=== PATIENT | male | born 1950 | race Caucasian/White ===

== ENCOUNTER 2017-04-28 17:32 | Inpatient (IN) ==
[2017-04-28] MEDS ORDERED: Levofloxacin 750 MG/150 ML 750 MG/150 ML BAG IVPB ONE (18:01)
[2017-04-28] MEDS ORDERED: Vancomycin 1,000 MG VIAL IVPB ONE (18:01)
--- NOTE | 2017-04-28 18:08 | Emergency Department Note ---
Disposition Clinical Impression: Hypoxemia, Postobstructive pneumonia, COPD (chronic obstructive pulmonary disease) Disposition: Admitted As Inpatient Condition: Fair General Adult HPI - General Chief complaint: ED Chest Pain Stated complaint: CP/SOB Time Seen by Provider: 04/28/17 17:46 Source: patient Limitations: no limitations - History of Present Illness Pain Scale: 4 - Related Data Home Medications Medication Instructions Recorded Confirmed Metoprolol [Lopressor] 50 mg PO BID 05/27/15 04/28/17 Simvastatin [Zocor] 80 mg PO HS 05/27/15 04/28/17 Naproxen [Naprosyn] 500 mg PO BID 08/12/16 04/28/17 Sertraline [Zoloft] 200 mg PO HS 08/12/16 04/28/17 Tiotropium [Spiriva] 2 puff IH DAILY 08/12/16 04/28/17 metFORMIN [Glucophage] 500 mg PO BIDWM 08/12/16 04/28/17 Aspirin 81 mg PO DAILY 04/28/17 04/28/17 Budesonide/Formoterol 80/4.5 2 puff IH Q12H 04/28/17 04/28/17 [Symbicort 80/4.5] Cholecalciferol (D-3) [Vitamin D] 1,000 unit PO DAILY 04/28/17 04/28/17 Docusate [Colace] 200 mg PO DAILY 04/28/17 04/28/17 Ipratropium/Albuterol Neb [Duoneb] 3 ml IH TID PRN 04/28/17 04/28/17 Lisinopril/Hydrochlorothiazide 1 each PO DAILY 04/28/17 04/28/17 [Zestoretic 10-12.5 mg Tablet] Allergies Allergy/AdvReac Type Severity Reaction Status Date / Time azithromycin [From Zithromax] Allergy Hives Verified 04/28/17 17:48 Past Medical History - Past Medical History Medical history: Reports: arthritis, COPD, coronary artery disease, diabetes, hyperlipidemia, hypertension, myocardial infarction, peripheral artery disease Surgical history: Reports: angioplasty/stent Psychiatric history: Reports: no psych history - Social History Smoking Status: Former smoker Smokeless Tobacco Status: No Alcohol use: Reports: none Drug use: Reports: none Physical Exam - General Limitations: no limitations General appearance: alert Course - Reevaluation(s) Reevaluation #1: I saw the patient with the resident, Dr. Isis Harrington. Patient was sent over from the [place] after he presented there with right-sided chest pain. Workup revealed a right sided pneumonia with a possible postobstructive component to it. There was no PE. Rest of the workup was okay. Patient reports increasing cough and pleuritic right-sided chest pain. He is requiring more oxygen than usual to keep his O2 sats up. Has a number of chronic medical conditions and since there is concern for postobstructive pneumonia as well, he needs to be admitted to the hospital for antibiotics and further oxygen therapy. We will contact the hospitalist arranged admission. Time: 18:10 Vital Signs Temperature 98.5 F 04/28/17 17:33 Pulse Rate 63 04/28/17 17:33 Respiratory Rate 14 04/28/17 17:33 Blood Pressure 138/79 04/28/17 17:33 O2 Sat by Pulse Oximetry 90 04/28/17 17:33 Temperature 98.5 F 04/28/17 17:33 Pulse Rate 62 04/28/17 20:30 Respiratory Rate 16 04/28/17 20:58 Blood Pressure 125/76 04/28/17 20:58 O2 Sat by Pulse Oximetry 90 04/28/17 20:30 Oxygen Delivery Oxygen Delivery Room Air Medical Decision Making - Lab Data Lab Results 04/28/17 Range/Units 18:45 ABG pH 7.41 (7.32-7.45) pH Units ABG pCO2 45 (35-45) mmHg ABG pO2 58 L (85-104) mmHg ABG HCO3 28.5 H (21-27) mEQ/L ABG Total CO2 29.9 H (20-26) mEq/L ABG O2 Saturation 90 L (95-98) % ABG Base Excess 3.4 H (-2.0 to 3.0) mEq/L Blood Gas Modality VM Inspired O2 50 % Attestation Statement - Attestation Attestation: I, Dr. Patel, examined this patient [id number] and my medical decision- making was reviewed with the Resident Physician, Dr Harrington. I agree with the documented findings, disposition and treatment plan as described except to the extent set forth below. Please see my progress note for details.
--- NOTE | 2017-04-28 18:20 | Emergency Department Note ---
Disposition Clinical Impression: Hypoxemia, Postobstructive pneumonia, COPD (chronic obstructive pulmonary disease) Disposition: Admitted As Inpatient Condition: Fair Referrals: Unassigned,Provider [Primary Care Provider] - Forms: ED Satisfaction Letter Time of Disposition: 19:55 Chest Pain HPI - General Chief Complaint: ED Chest Pain Stated Complaint: CP/SOB Time Seen by Provider: 04/28/17 17:46 Source: patient Mode of arrival: EMS Limitations: no limitations Vital Signs Reviewed: Yes Nursing Notes Reviewed: Yes - History of Present Illness HPI Narrative: Mr. Edmonds is a 67-year-old male with past medical history COPD diabetes hypertension coronary artery disease hyperlipidemia and lumbar radiculopathy. He presents to [facility] as transfer from the [place]. He presented there today after awaking this morning with right-sided chest pain. At the [place] he had a full cardiopulmonary workup including a [facility] chest which shows a right middle lobe area of consolidation suggestive of pneumonia. Patient has been seen there multiple times over the past month for this problem. His previous CT scan showed the same consolidation at which point he was referred to [place] for bronchoscopy and further workup for a potential underlying neoplasm causing the recurrent pneumonia. Patient says he has had 2 bronchoscopies to [place] over the past 2 weeks to deprive the area. Patient 's says he does not have the results of the biopsy that he had. His most recent bronchoscopy was a week ago today. Patient awoke this morning having a lot of pain the pain has increased in frequency throughout the day. Patient denies any nausea vomiting or diarrhea. Diaphoresis is his baseline. Patient is on at home oxygen at 3 L. Severity scale (1-10): 4 - Related Data Home Medications Medication Instructions Recorded Confirmed Metoprolol [Lopressor] 50 mg PO BID 05/27/15 08/12/16 Simvastatin [Zocor] 80 mg PO DAILY 05/27/15 08/12/16 Naproxen 500 mg PO BID 08/12/16 08/12/16 Sertraline [Zoloft] 200 mg PO DAILY 08/12/16 08/12/16 Tiotropium [Spiriva] 2.5 mcg IH DAILY 08/12/16 08/12/16 metFORMIN [Glucophage] 500 mg PO BID 08/12/16 08/12/16 Aspirin 81 mg PO DAILY 04/28/17 04/28/17 Budesonide/Formoterol 80/4.5 2 puff IH Q12H 04/28/17 04/28/17 [Symbicort 80/4.5] Cholecalciferol (D-3) [Vitamin D] 1,000 unit PO DAILY 04/28/17 04/28/17 Docusate [Colace] 200 mg PO DAILY 04/28/17 04/28/17 Ipratropium/Albuterol Neb [Duoneb] 3 ml IH TID PRN 04/28/17 04/28/17 Lisinopril/Hydrochlorothiazide 1 each PO DAILY 04/28/17 04/28/17 [Zestoretic 10-12.5 mg Tablet] Allergies Allergy/AdvReac Type Severity Reaction Status Date / Time azithromycin [From Zithromax] Allergy Hives Verified 04/28/17 17:48 Constitutional: Denies: fever, chills Cardiovascular: Reports: chest pain (Right sided pain under patient's breast) Respiratory: Reports: cough, sputum production (None increased from his baseline ). Denies: dyspnea (No dyspnea greater than his baseline), wheezes, hemoptysis , stridor Gastrointestinal: Denies: abdominal pain, nausea, vomiting Genitourinary: Denies: urgency, dysuria Musculoskeletal: Denies: back pain Neurological: Denies: headache, weakness Chest Pain PMH - Past Medical History Medical history: Reports: arthritis, COPD, coronary artery disease, diabetes, hyperlipidemia, hypertension, myocardial infarction, peripheral artery disease Surgical history: Reports: angioplasty/stent Psychiatric history: Reports: no psych history - Social History Smoking Status: Former smoker Alcohol use: Reports: none Drug use: Reports: none Physical Exam - General Limitations: no limitations General appearance: alert - Head Head exam: atraumatic, normocephalic - Respiratory Respiratory exam: Present: other (Lungs with some coarse breath sounds. Patient talking normally. Not think but breathing deeply.). Absent: accessory muscle use - Cardiovascular Cardiovascular exam: Present: regular rate, normal rhythm. Absent: systolic murmur, diastolic murmur, rubs, gallop - Abdominal Exam Abdominal exam: Present: soft, Non-Tender - Neurological Exam Neurological exam: Present: alert, oriented X3 - Skin Skin exam: Present: warm, diaphoresis (Patient is sweaty at baseline.) Course Course Narrative: 67-year-old male [facility]. He is currently being worked up for a potential right sided lung neoplasm which is causing all this postobstructive pneumonia. Patient has been to [place] twice in the last month for bronchoscopies to deep ride the area and obtain biopsies. Upon transfer from the [place], his medical records show a complete cardiopulmonary work up. CTA scan of the chest was negative for PE, however it did show a right middle lobe pneumonia with again an area suspicious for neoplasm. - Reevaluation(s) Reevaluation #1: Spoke with medicine they are requesting us to order an ABG. We will admit to medicine Dr. Simpson. Vital Signs Temperature 98.5 F 04/28/17 17:33 Pulse Rate 63 04/28/17 17:33 Respiratory Rate 14 04/28/17 17:33 Blood Pressure 138/79 04/28/17 17:33 O2 Sat by Pulse Oximetry 90 04/28/17 17:33 Temperature 98.5 F 04/28/17 17:33 Pulse Rate 63 04/28/17 17:33 Respiratory Rate 14 04/28/17 17:33 Blood Pressure 138/79 04/28/17 17:33 O2 Sat by Pulse Oximetry 90 04/28/17 17:33 Oxygen Delivery Oxygen Delivery Nasal Cannula Chest Pain - Medical Records Medical records reviewed: Yes I reviewed the patient's medical records. - Lab Data Lab results reviewed: Yes I reviewed the patient's lab results. - Radiology Data Radiology results reviewed: Yes I reviewed the patient's radiology results. In patients medical records from [place]. - EKG Data EKG attestation: Yes I reviewed and interpreted this EKG. EKG results narrative: Patient's ECG on 04/28/2017 shows electronic atrial pacemaker. There are no ischemic changes compared to his ECG on 08/17/2015 which shows sinus bradycardia with a right bundle branch block and potentially old inferior SD.
[2017-04-28] MEDS ORDERED: Ipratropium/Albuterol Neb 3 ML IH ONE (18:24)
[2017-04-28] MEDS ORDERED: Ipratropium/Albuterol Neb 3 ML ONE (18:26)
[2017-04-28 18:48] LABS: ABG Base Excess 3.4 mEq/L (-2.0 to 3.0); ABG HCO3 28.5 mEQ/L (21-27); ABG Oxygen Saturation 90 % (95-98); ABG PCO2 45 mmHg (35-45); ABG PH 7.41 pH Units (7.32-7.45); ABG PO2 58 mmHg (85-104); ABG TCO2 29.9 mEq/L (20-26)
[2017-04-28 18:51] LABS: Blood Gas FiO2 50 %
[2017-04-28] MEDS ORDERED: *HR* Morphine 2 MG/ML SYRINGE IVP PRN (20:06)
[2017-04-28] MEDS ORDERED: Naloxone 0.4 MG/ML INJ IVP PRN (20:06)
[2017-04-28] MEDS ORDERED: *HR* Promethazine 25 MG/ML VIAL IVP PRN (20:06)
[2017-04-28] MEDS ORDERED: Acetaminophen 325 MG TABLET PO PRN (20:06)
[2017-04-28] MEDS ORDERED: Albuterol 2.5 MG/3 ML NEBULIZER IH PRN (20:12)
[2017-04-28] MEDS ORDERED: Dextrose Gel 15 GM PO PRN ×2 (20:13)
[2017-04-28] MEDS ORDERED: *HR* Dextrose 50 % in Water (Syg) 50 ML SYRINGE IVP PRN (20:13)
[2017-04-28] MEDS ORDERED: D5% in Water 1,000 ML IVC PRN (20:13)
--- NOTE | 2017-04-28 20:21 | Internal Med History&Physical ---
Date of Encounter: 04/28/17 Time of Encounter: 19:40 Assessment and Plan (1) Postobstructive pneumonia Current visit: Yes Status: Acute 1. Patient received antibiotics in ER already but no blood cultures have been drawn. 2. I ordered STAT blood cultures and sputum culture (if able to collect). 3. Continue IV Vancomycin and Levaquin. 4. Consult Pulmonology for possible bronchoscopy. 5. Obtain records from [facility]. 6. Oxygen as needed. 7. Duonebs and respiratory support as needed. (2) Acute on chronic respiratory failure with hypoxemia Current visit: Yes Status: Acute 1. I placed him on 4 L O2 NC presently. 2. Will provide CPAP/BiPap if necessary. 3. Aerosols as scheduled and PRN. (3) Type 2 diabetes mellitus Current visit: Yes Status: Chronic 1. Hold Metformin. 2. Will use SSI and adjust as necessary. Qualifiers: Diabetes mellitus complication status: without complication Diabetes mellitus mental retardation nurse insulin use: without mental retardation nurse use Qualified Code(s): E11.9 - Type 2 diabetes mellitus without complications (4) DVT prophylaxis Current visit: Yes Status: Acute 1. Heparin SQ. Internal Medicine - H&P: HPI Chief complaint: SOB; fever, cough, chest pain Admitted From: Emergency Dept Plans for Post Hospital Care: Home History of present illness: Mr. Edmonds is a 67 year old male who was sent here from [place] urgent care for concerns of right-sided chest pain, cough, fever, and shortness of breath. He has been treated for pneumonia several times since January of this year. He was found to have evidence of 2 lung lesions according to his . He has undergone 2 bronchoscopies at [facility], which according to patient and his , have been nondiagnostic. Today, at the [place] urgent care, he had imaging in the form of a chest x-ray and CT angiogram, which ruled out a PE. However, there was evidence of worsening right middle lobe consolidation and concern for postobstructive pneumonia. He also has small right pleural effusion. Because of his symptomatic complaints and clinical picture, he was sent to [place] ER. He was admitted to the hospitalist service. Essentially no workup was done in the ER other than a blood gas. He had labs drawn at the [place] earlier today which were reviewed by ER staff and by me personally. Upon my assessment of the patient in the ER, patient was on 50% oxygen by Ventimask. I placed him back on 4 L O2 nasal cannula, and his oxygen saturations have been running around 91%. He wears oxygen chronically at home at 3 L. He has been having difficulty breathing off and on since January. However , today, he developed right-sided chest pain with worsening cough, blood-tinged sputum, and low-grade fever. His most recent bronchoscopy was a little over a week ago at [facility]. Pathology results are still pending. He is a former smoker and quit in 2002. He suffers from long-standing COPD. He denies any unexplained weight loss, gross hemoptysis, or any history of DVT or PE. Patient and state they have not been informed of the concern for possible malignancy. They were told he had lesions, but they were under the impression the lesions were benign. I informed them that I would try to obtain records from [facility] and that I would consult our lithographic photographer. Furthermore, he very well may need a repeat bronchoscopy this hospital stay for definitive diagnosis and treatment. Past Med Surg Social Fam HX - Past Medical History Attestation: Yes The following information was validated with the patient. Source: patient, old records reviewed, obtained from family Medical history: arthritis, COPD, coronary artery disease, diabetes, hyperlipidemia, hypertension, myocardial infarction, peripheral artery disease Psychiatric history: no psych history - Past Surgical History Surgical History: angioplasty/stent, pacemaker/AICD - Social History Smoking Status: Former smoker Smokeless Tobacco Status: No Alcohol use: none Drug use: none Current living situation: Home, With Family Activity Level: Independent ambulation - Family History Father Living Status: Hx Family Cardiac Disorders: Yes (self has AICD,) Hx Family Respiratory Disorders: Yes (self,uncle,father) Hx Family Cancer: Yes (father,sisters,) Hx Family GI Disorders: No Hx Family Endocrine Disorder: Yes (self) Hx Family Neuromuscular Disorders: No Hx Family Neurologic Disorders: No Hx Family HEENT Disorders: No Hx Family Autoimmune Disorders: No - Additional Family History Additional family history: no family history of lung cancer Internal Medicine - H&P: Meds Metoprolol [Lopressor] 50 mg PO BID 05/27/15 [History] Simvastatin [Zocor] 80 mg PO HS 05/27/15 [History] Naproxen [Naprosyn] 500 mg PO BID 08/12/16 [History] Sertraline [Zoloft] 200 mg PO HS 08/12/16 [History] Tiotropium [Spiriva] 2 puff IH DAILY 08/12/16 [History] metFORMIN [Glucophage] 500 mg PO BIDWM 08/12/16 [History] Aspirin 81 mg PO DAILY 04/28/17 [History] Budesonide/Formoterol 80/4.5 [Symbicort 80/4.5] 2 puff IH Q12H 04/28/17 [ History] Cholecalciferol (D-3) [Vitamin D] 1,000 unit PO DAILY 04/28/17 [History] Docusate [Colace] 200 mg PO DAILY 04/28/17 [History] Ipratropium/Albuterol Neb [Duoneb] 3 ml IH TID PRN 04/28/17 [History] Lisinopril/Hydrochlorothiazide [Zestoretic 10-12.5 mg Tablet] 1 each PO DAILY [History] 3 Allergy/AdvReac Type Severity Reaction Status Date / Time azithromycin [From Zithromax] Allergy Hives Verified 04/28/17 17:48 - Constitutional Constitutional: chills, fever(s), no night sweats, no weight loss - EENT Eyes: no change in vision Ears: no ear pain, no tinnitus Nose, mouth and throat: no nasal congestion, no sinus pressure, no sore throat - Cardiovascular Cardiovascular ROS IM: chest pain (right sided), dyspnea, dyspnea on exertion, no edema, no orthopnea, no palpitations - Respiratory Respiratory: cough, dyspnea, hemoptysis, wheezing, chest congestion, excessive phlegm production, change in phlegm color, pain with cough - Gastrointestinal Gastrointestinal: no abdominal pain, no diarrhea, no hematemesis, no hematochezia, no melena, no nausea, no vomiting - Genitourinary Genitourinary ROS male: no dysuria, no flank pain, no hematuria - Musculoskeletal Musculoskeletal ROS IM: no arthralgias, no back pain - Integumentary Integumentary IM: no rash, no jaundice - Neurological Neurological ROS: no focal weakness, no frequent falls, no headache(s), no numbness - Psychiatric Psychiatric: no anxiety, no depression - Endocrine Endocrine IM: no polydipsia, no polyuria - Hematologic/Lymphatic Hematologic/Lymphatic: no easy bruising, no lymphadenopathy - Allergic/Immunologic Allergic/Immunologic: wheezing, no GI upset with certain foods - Constitutional Vitals: Temp Pulse Resp BP Pulse Ox 98.5 F 67 20 135/73 89 04/28/17 17:33 04/28/17 19:38 04/28/17 19:38 04/28/17 19:38 04/28/17 19:38 General appearance: Present: cooperative, mild distress, A&O X 3, pleasant, answers questions appropriately - Head Head exam: Present: atraumatic, normal inspection - Eye Eye exam: Present: EOMI, normal appearance, PERRL. Absent: scleral icterus Pupils: Present: normal accommodation - ENT ENT exam: Present: mucous membranes dry, normal exam - Neck Neck exam general surgery: Present: full ROM, supple. Absent: lymphadenopathy, tenderness - Expanded Neck Exam Neck exam: Absent: carotid bruit - Respiratory Respiratory exam: Present: decreased breath sounds (right base), prolonged expiratory phase, rales (right side), respiratory distress (mild), rhonchi, wheezes. Absent: chest wall tenderness - Cardiovascular Cardiovascular exam: Present: distant heart sounds, RRR, +S1, +S2. Absent: diastolic murmur, systolic murmur Additional comments: palpable pacemaker left upper chest - GI/Abdominal GI/Abdominal exam: Present: normal bowel sounds, soft. Absent: hepatomegaly, mass, splenomegaly, tenderness - Extremities Exam Extremities exam: Present: full ROM, normal capillary refill, warm, radial pulses palpable and symmetrical. Absent: calf tenderness, joint swelling, pedal edema - Back Exam Back exam: Present: normal inspection. Absent: CVA tenderness (L), CVA tenderness (R) - Neurological Exam Neurological exam: Present: alert, CN II-XII intact, oriented X3 - Psychiatric Psychiatric exam: Present: normal affect, normal mood - Skin Skin exam: Present: dry, warm. Absent: rash Internal Med - H&P Results - Labs Labs: I reviewed labs from the [place] from today and they include the following: WBC 9.1 Hemoglobin 10.5 Hematocrit 32.2 Plate like count 162 Neutrophils 60% Lymphocytes 18% Monocytes 20% Sodium 143 Potassium 3.5 Chloride 104 Carbon dioxide 28 Glucose 127 BUN 14 Creatinine 1.02 Troponin 0.018 - EKG Data -: EKG Interpreted by Myself - EKG Data Prior EKG available for review: no EKG comments: 04/28/17 20:39 AV paced rhythm - Diagnostic Studies CT scan - chest Additional comments: Report reviewed -- findings noted in [place]
[2017-04-28] MEDS: Ipratropium/Albuterol Neb 3 ML IH SCH ×2 (20:24→23:35)
[2017-04-28] MEDS ORDERED: Vancomycin 1,750 MG in D5% in Water 250 ML IVPB SCH (21:00)
[2017-04-28] MEDS: Vancomycin 1,750 MG in D5% in Water 500 ML IVPB SCH (22:05)
[2017-04-28] MEDS: Budesonide/Formoterol 80/4.5 MDI IH SCH (22:49)
[2017-04-29] MEDS: *HR* Heparin 5,000 UNIT/ML VIAL SQ SCH ×3 (00:08→17:32)
[2017-04-29] MEDS: Ipratropium/Albuterol Neb 3 ML IH SCH ×6 (04:02→23:09)
[2017-04-29 05:06] LABS: Basophils # 0.1 K/mcL (0.0-0.2); Basophils % 0.6 %; Eosinophils # 0.1 K/mcL (0.0-0.6); Eosinophils % 0.6 %; Hematocrit 30.7 % (37.5-50.1); Immature Granulocytes % 1.3 % (0-4); Lymphocytes # 1.9 K/mcL (0.6-4.6); Lymphocytes % 15.9 %; Mean Corpuscular HGB Conc 32.6 g/dL (31.6-35.5); Mean Corpuscular Hemoglobin 28.5 pg (28.0-33.3); Mean Corpuscular Volume 87.5 fL (83.0-100.0); Mean Platelet Volume 10.7 fL (9.4-12.4); Monocytes # 2.5 K/mcL (0.0-1.3); Monocytes % 21.3 %; Neutrophils # 7.1 K/mcL (1.6-8.9); Platelet Count 148 K/mcL (140-400); Red Blood Count 3.51 M/mcL (4.19-5.50); Red Cell Distribution Width 17.9 % (11.5-14.5); Segmented Neutrophils % 60.3 %
[2017-04-29 05:14] LABS: INR 1.2
[2017-04-29 05:16] LABS: Activated Partial Thrombo Time 27.8 Seconds (26.0-36.0)
[2017-04-29 05:19] LABS: Alanine Aminotransferase 12 Units/L (0-55); Albumin 3.3 g/dL (3.5-5.0); Alkaline Phosphatase 48 Units/L (38-126); Aspartate Amino Transferase 14 Units/L (5-34); BUN/Creatinine Ratio 14 (6-26); Bilirubin,Total 0.5 mg/dL (0.2-1.2); Blood Urea Nitrogen 13 mg/dL (8-26); Calcium 8.7 mg/dL (8.6-10.8); Carbon Dioxide 28 mEq/L (19-29); Chloride 103 mEq/L (98-109); Globulin 3.2 g/dL (2.4-3.5); Glucose 99 mg/dL (70-99); Magnesium 1.7 mg/dL (1.6-2.6); Osmolality,Calculated 288 (280-300); Sodium 139 mEq/L (136-145); Total Protein 6.5 g/dL (6.0-8.3); eGFR For African Americans > 60 (> 60); eGFR For Non-African Americans > 60 (> 60)
[2017-04-29 05:31] LABS: Large Platelets Present (Not Present); Platelet Estimate Normal (Normal); Reactive Lymphocytes Present (Not Present)
[2017-04-29 05:32] LABS: Anisocytosis 1+ (Not Present); Macrocytosis Present (Not Present); Microcytosis Present (Not Present); Polychromasia 1+ (Not Present)
[2017-04-29] MEDS: Budesonide/Formoterol 80/4.5 MDI IH SCH ×2 (08:23→19:48)
[2017-04-29] MEDS ORDERED: Tiotropium 18 MCG inhalation IH SCH (09:00)
[2017-04-29] MEDS: Levofloxacin 750 MG/150 ML 750 MG/150 ML BAG IVPB SCH (09:52)
[2017-04-29] MEDS: Aspirin 81 MG TAB.CHEW PO SCH (09:53)
[2017-04-29] MEDS: Cholecalciferol (D-3) 1,000 UNIT TABLET PO SCH (09:54)
[2017-04-29] MEDS: Insulin LISPRO 300 UNITS/3 ML VIAL SQ SCH ×3 (09:58→17:31)
[2017-04-29] MEDS: Vancomycin 1,750 MG in D5% in Water 500 ML IVPB SCH ×2 (09:59→20:32)
--- NOTE | 2017-04-29 11:14 | Internal Med Progress Note ---
<Jermaine Silva - Last Filed: 04/29/17 14:26> Date of Encounter: 04/29/17 Time of Encounter: 11:11 - Assessment and plan (1) Postobstructive pneumonia Current Visit: Yes Status: Acute Assessment and plan: 6 mo hx of recurrent pneumonia. [facility] biopsy twice in last 2 weeks. hx COPD. In Ed patient was given vanc + levaquin prior to cultures. - SpO2 93% 4L O2 - Ct levaquin +vanco - waiting biopsy report from [facility] - blood and sputum Cx pending - O2 prn - duonebs and resp support prn (2) COPD (chronic obstructive pulmonary disease) Current Visit: Yes Status: Acute Assessment and plan: - SpO2 93% 4L O2 - Ct levaquin - O2 prn - duonebs and resp support prn - consider solmuderol if wheezing worsens - CPAP/BIPAP if necessary Qualifiers: Qualified Code(s): J44.9 - Chronic obstructive pulmonary disease, unspecified (3) Type 2 diabetes mellitus Current Visit: Yes Status: Chronic Assessment and plan: - hold metformin - ct. SSI Qualifiers: Diabetes mellitus complication status: without complication Diabetes mellitus mcfp insulin use: without termination clerk use Qualified Code(s): E11.9 - Type 2 diabetes mellitus without complications (4) DVT prophylaxis Current Visit: Yes Status: Acute Assessment and plan: Ct. heparin - Subjective Interval history: Mr. Edmonds is a 67 year old male is on Day 1 of admission for recurrent pneumonia and chest pain for the last 6 months w/ hx COPD home 3L, DM, HTN, CAD , HLD, lumbar radiculopahty. Patient today reports not feeling great and continues to have breathing complaints. denies f/c/n/v/sob at rest - Constitutional Vitals: Temp Pulse Resp BP Pulse Ox 97.9 F 70 17 131/76 90 04/29/17 10:58 04/29/17 10:58 04/29/17 10:58 04/29/17 10:58 04/29/17 10:58 General appearance: Present: cooperative, mild distress, A&O X 3, pleasant, answers questions appropriately - Head Head exam: Present: atraumatic, normocephalic - Respiratory Respiratory exam: Present: wheezes. Absent: accessory muscle use, rales, rhonchi - Cardiovascular Cardiovascular exam: Present: RRR, +S1, +S2. Absent: diastolic murmur, gallop, rubs, systolic murmur - GI/Abdominal GI/Abdominal exam: Present: normal bowel sounds, soft, no peritoneal signs. Absent: distended, tenderness Internal Medicine: Result - Labs CBC & Chem 7: 04/29/17 04:39 04/29/17 04:39 Labs: Short CBC 04/29/17 Range/Units 04:39 WBC 11.8 H (4.3-11.1) K/mcL Hgb 10.0 L (12.9-16.9) g/dL Hct 30.7 L (37.5-50.1) % Plt Count 148 (140-400) K/mcL Neutrophils # 7.1 (1.6-8.9) K/mcL BMP 04/29/17 04:39 Sodium 139 Potassium 4.0 Chloride 103 Carbon Dioxide 28 BUN 13 Creatinine 0.91 Glucose 99 Calcium 8.7 Cardiac Enzymes 04/28/17 04/29/17 Range/Units 20:56 04:39 Troponin I 0.00 0.00 (0-0.03) ng/mL Liver Function 04/29/17 Range/Units 04:39 Total Bilirubin 0.5 (0.2-1.2) mg/dL AST 14 (5-34) Units/L ALT 12 (0-55) Units/L Alkaline Phosphatase 48 (38-126) Units/L Albumin 3.3 L (3.5-5.0) g/dL - ABG Interpretation ABG results: ABG ABG pH 7.41 pH Units (7.32-7.45) 04/28/17 18:45 ABG pCO2 45 mmHg (35-45) 04/28/17 18:45 ABG pO2 58 mmHg (85-104) L 04/28/17 18:45 ABG O2 Saturation 90 % (95-98) L 04/28/17 18:45 PT/INR, D-dimer PT 13.0 Seconds (9.4-12.1) H 04/29/17 04:39 Consult Discharge Plan - Plan [facility]errals: [facility]Primary Care Provider[facility] - <Joradn Stein P - Last Filed: 04/29/17 20:19> Date of Encounter: 04/29/17 - Constitutional Vitals: Temp Pulse Resp BP Pulse Ox 98 F 63 16 140/78 90 04/29/17 19:38 04/29/17 19:38 04/29/17 19:49 04/29/17 19:38 04/29/17 19:49 Internal Medicine: Result - Labs CBC & Chem 7: 04/29/17 04:39 04/29/17 04:39 - ABG Interpretation ABG results: ABG ABG pH 7.41 pH Units (7.32-7.45) 04/28/17 18:45 ABG pCO2 45 mmHg (35-45) 04/28/17 18:45 ABG pO2 58 mmHg (85-104) L 04/28/17 18:45 ABG O2 Saturation 90 % (95-98) L 04/28/17 18:45 PT/INR, D-dimer PT 13.0 Seconds (9.4-12.1) H 04/29/17 04:39 - Attending Attestation I examined this patient and my medical decision-making was reviewed with the Resident Physician. I agree with the documented findings, disposition and treatment plan as described except to the extent set forth below.
--- NOTE | 2017-04-29 17:10 | Electrocardiograph Report ---
[place] [id number] Test Date: 2017-04-28 Pat Name: Sarabjit Edmonds Department: 0 Room: 2A Gender: M [employer] Operator: Nilsa : 1950 Requested By: Jordan Stein Order Number: [id number] Reading MD: Bettie Gibbs Measurements Intervals [place] Rate: 60 P: 99 RI: 187 QRS: -71 QRSD: 153 T: 35 QT: 444 QTc: 445 Interpretive Statements ELECTRONIC ATRIAL PACEMAKER ELECTRONIC VENTRICULAR PACEMAKER ABNORMAL RHYTHM ECG Electronically Signed On 04-29-2017 17:08:09 EDT by Bettie Gibbs
[2017-04-30] MEDS: *HR* Heparin 5,000 UNIT/ML VIAL SQ SCH ×4 (00:27→23:32)
[2017-04-30] MEDS: Ipratropium/Albuterol Neb 3 ML IH SCH ×6 (03:43→23:48)
[2017-04-30 04:13] LABS: Hematocrit 31.9 % (37.5-50.1); Hemoglobin 10.1 g/dL (12.9-16.9); Mean Corpuscular HGB Conc 31.7 g/dL (31.6-35.5); Mean Corpuscular Hemoglobin 27.5 pg (28.0-33.3); Mean Corpuscular Volume 86.9 fL (83.0-100.0); Mean Platelet Volume 11.3 fL (9.4-12.4); Platelet Count 158 K/mcL (140-400); Red Blood Count 3.67 M/mcL (4.19-5.50); Red Cell Distribution Width 17.9 % (11.5-14.5)
[2017-04-30 04:28] LABS: BUN/Creatinine Ratio 13 (6-26); Blood Urea Nitrogen 13 mg/dL (8-26); Calcium 9.2 mg/dL (8.6-10.8); Carbon Dioxide 28 mEq/L (19-29); Chloride 105 mEq/L (98-109); Glucose 94 mg/dL (70-99); Osmolality,Calculated 292 (280-300); Potassium 3.7 mEq/L (3.5-4.5); Sodium 141 mEq/L (136-145); eGFR For African Americans > 60 (> 60); eGFR For Non-African Americans > 60 (> 60)
[2017-04-30] MEDS: Budesonide/Formoterol 80/4.5 MDI IH SCH ×2 (07:37→20:05)
[2017-04-30] MEDS: Insulin LISPRO 300 UNITS/3 ML VIAL SQ SCH ×3 (08:07→17:07)
[2017-04-30] MEDS: Aspirin 81 MG TAB.CHEW PO SCH (09:03)
[2017-04-30] MEDS: Levofloxacin 750 MG/150 ML 750 MG/150 ML BAG IVPB SCH (09:03)
[2017-04-30] MEDS: Cholecalciferol (D-3) 1,000 UNIT TABLET PO SCH (09:03)
--- NOTE | 2017-04-30 15:19 | Internal Med Progress Note ---
Date of Encounter: 04/30/17 Time of Encounter: 15:17 - Assessment and plan (1) Postobstructive pneumonia Current Visit: Yes Status: Acute Assessment and plan: 6 mo hx of recurrent pneumonia. [facility] biopsy twice in last 2 weeks. hx COPD. In Ed patient was given vanc + levaquin prior to cultures. We received some records from [facility] but we did not get any imaging. Biopsy/FNA see record: Inconclusive/nondiagnostic Plan: Chest x-ray CT chest with contrast (2) COPD (chronic obstructive pulmonary disease) Current Visit: Yes Status: Acute Assessment and plan: - SpO2 93% 4L O2 - Ct levaquin - O2 prn - duonebs and resp support prn - consider solmuderol if wheezing worsens - CPAP/BIPAP if necessary Qualifiers: Qualified Code(s): J44.9 - Chronic obstructive pulmonary disease, unspecified (3) Type 2 diabetes mellitus Current Visit: Yes Status: Chronic Assessment and plan: - hold metformin - ct. 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 heparin I have spoken to assurance analyst Dr. Rosado. We will get imaging. Possible bronchoscopy/interventional procedure on Tuesday. We will keep patient nothing by mouth from Tuesday midnight - Subjective Interval history: Seen and examined. Chart reviewed. Patient is comfortably lying in a bed. Patient denies cough, chest pain, shortness of breath, abdominal pain, nausea, diarrhea and dizziness. - Constitutional Vitals: Temp Pulse Resp BP Pulse Ox 97.3 F L 62 20 138/73 89 04/30/17 10:33 04/30/17 10:33 04/30/17 11:13 04/30/17 10:33 04/30/17 11:13 General appearance: Present: cooperative, mild distress, A&O X 3, pleasant, answers questions appropriately - Head Head exam: Present: atraumatic, normocephalic - Eye Eye exam: Present: PERRL, conjuntiva pink, sclera anicteric Pupils: Present: PERRL - Neck Neck exam general surgery: Present: supple, trachea midline. Absent: lymphadenopathy - Respiratory Respiratory exam: Present: CTAB. Absent: accessory muscle use, rales, rhonchi, wheezes - Cardiovascular Cardiovascular exam: Present: RRR, +S1, +S2. Absent: diastolic murmur, gallop, rubs, systolic murmur - GI/Abdominal GI/Abdominal exam: Present: normal bowel sounds, soft, no peritoneal signs. Absent: distended, tenderness - Extremities Exam Extremities exam: Present: warm, radial pulses palpable and symmetrical. Absent : calf tenderness, cyanotic, pedal edema - Neurological Exam Neurological exam: Present: CN II-XII intact, oriented X3, no focal deficits. Absent: pronater drift, facial droop, speech deficit - Skin Skin exam: Present: dry, intact Internal Medicine: Result - Labs CBC & Chem 7: 04/30/17 02:48 04/30/17 02:48 Labs: Short CBC 04/30/17 Range/Units 02:48 WBC 8.2 (4.3-11.1) K/mcL Hgb 10.1 L (12.9-16.9) g/dL Hct 31.9 L (37.5-50.1) % Plt Count 158 (140-400) K/mcL BMP 04/30/17 02:48 Sodium 141 Potassium 3.7 Chloride 105 Carbon Dioxide 28 BUN 13 Creatinine 1.03 Glucose 94 Calcium 9.2 - ABG Interpretation ABG results: ABG ABG pH 7.41 pH Units (7.32-7.45) 04/28/17 18:45 ABG pCO2 45 mmHg (35-45) 04/28/17 18:45 ABG pO2 58 mmHg (85-104) L 04/28/17 18:45 ABG O2 Saturation 90 % (95-98) L 04/28/17 18:45 PT/INR, D-dimer PT 13.0 Seconds (9.4-12.1) H 04/29/17 04:39 Consult Discharge Plan - Plan [facility]Primary Care Provider] -
[2017-04-30] MEDS: Vancomycin 1,000 MG in D5% in Water 250 ML IVPB SCH (18:42)
[2017-05-01] MEDS: Ipratropium/Albuterol Neb 3 ML IH SCH ×6 (04:03→23:23)
[2017-05-01 05:02] LABS: Hematocrit 32.7 % (37.5-50.1); Hemoglobin 10.7 g/dL (12.9-16.9); Mean Corpuscular HGB Conc 32.7 g/dL (31.6-35.5); Mean Corpuscular Hemoglobin 28.4 pg (28.0-33.3); Mean Corpuscular Volume 86.7 fL (83.0-100.0); Mean Platelet Volume 10.3 fL (9.4-12.4); Platelet Count 151 K/mcL (140-400); Red Blood Count 3.77 M/mcL (4.19-5.50); Red Cell Distribution Width 17.8 % (11.5-14.5)
[2017-05-01 05:22] LABS: BUN/Creatinine Ratio 14 (6-26); Blood Urea Nitrogen 15 mg/dL (8-26); Calcium 8.9 mg/dL (8.6-10.8); Carbon Dioxide 25 mEq/L (19-29); Chloride 105 mEq/L (98-109); Glucose 119 mg/dL (70-99); Osmolality,Calculated 292 (280-300); Potassium 3.8 mEq/L (3.5-4.5); Sodium 140 mEq/L (136-145); eGFR For African Americans > 60 (> 60); eGFR For Non-African Americans > 60 (> 60)
[2017-05-01] MEDS: Vancomycin 1,000 MG in D5% in Water 250 ML IVPB SCH ×2 (06:01→17:54)
[2017-05-01] MEDS: Budesonide/Formoterol 80/4.5 MDI IH SCH ×2 (07:59→19:42)
[2017-05-01] MEDS: *HR* Heparin 5,000 UNIT/ML VIAL SQ SCH ×3 (08:44→22:40)
[2017-05-01] MEDS: Aspirin 81 MG TAB.CHEW PO SCH (08:44)
[2017-05-01] MEDS: Cholecalciferol (D-3) 1,000 UNIT TABLET PO SCH (08:44)
[2017-05-01] MEDS: Levofloxacin 750 MG/150 ML 750 MG/150 ML BAG IVPB SCH (08:44)
[2017-05-01] MEDS: Insulin LISPRO 300 UNITS/3 ML VIAL SQ SCH ×3 (08:44→16:48)
--- NOTE | 2017-05-01 10:28 | Pulmonology Consult Note ---
Date of Encounter: 05/01/17 Time of Encounter: 09:45 Assessment and Plan (1) Right middle lobe pneumonia Current Visit: Yes Status: Acute The patient has recurrent right middle lobe pneumonia. Right middle lobe is prone for recurrent pneumonia and atelectasis because of the long bronchus and the lymph nodes surrounding the bronchus, lack of collateral ventilation. The most common concern for a former smoker with COPD with recurrent pneumonia is malignancy but with CT imaging and the recent bronchoscopy results malignancies of low probability. The other causes for recurrent right middle lobe pneumonia can be due to infectious/inflammatory etiology. In this case with a background of COPD concern for fungal infection, nontuberculous mycobacteria infection ,i could not see any microbiology [facility]. We will discuss the case with Dr. Seaman regarding bronchoscopy with BAL for microbiology looking for fungus and non-tuberculous mycobacteria . 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 To continue IV Vancomycin and IV levofloxacin for now . Ordered induced sputum cultures for bacteria, fungus and Non tuberculous bacteria.He doesnt have any clinical symptoms suggestive of sarcoidosis there is no imaging evidence suggestive of that.Will keep NPO for Bronchoscopy tomorrow. Qualifiers: Pneumonia type: due to unspecified organism Qualified Code(s): J18.1 - Lobar pneumonia, unspecified organism (2) COPD (chronic obstructive pulmonary disease) Current Visit: Yes Status: Acute Patient is at his baseline oxygen requirements , his cough and sputum production is at baseline but no evidence of hemoptysis . Will continue the home regimen of bronchodilators . Patient doesnt look like he is in acute exacerbation of COPD. Qualifiers: COPD type: COPD with acute lower respiratory infection Qualified Code(s): J44.0 - Chronic obstructive pulmonary disease with acute lower respiratory infection (3) CAD (coronary artery disease) Current Visit: No Status: Chronic Management according to primary team. Qualifiers: Coronary Disease-Associated Artery/Lesion type: [place] artery [place] vs. transplanted heart: [place] heart Associated angina: without angina Qualified Code(s): I25.10 - Atherosclerotic heart disease of [place] coronary artery without angina pectoris (4) Obstructive sleep apnea (adult) (pediatric) Current Visit: Yes Status: Acute Patient is currently using CPAP at 13 cm of water. Patient is tolerating his mask and pressure well is feeling refreshed every morning. We will continue the home setting for now. (5) DVT prophylaxis Current Visit: No Status: Acute According to primary team. History of Present Illness Consult date: 05/01/17 Reason for consult: pneumonia (Recurrent Right Middle lobe pneumonia ) Chief complaint: Right Sided chest pain , i had some cough History of present illness: 67-year-old male pulmonary was consulted for recurrent right middle lobe pneumonia. Patient has a significant past medical history with oxygen- dependent COPD patient is usually on 3 L on rest and 4 L on exertion, coronary artery disease, hypertension hyperlipidemia ,BERNIE on CPAP, presented to the [place] urgent care for symptoms of right-sided chest pain, cough with some sputum production was febrile initially and patient has increased oxygen requirement from the baseline. The urgent care regard chest x-ray showed which showed worsening right middle lobe consolidation. Concern for pulmonary embolism CT was done which did not show any evidence of pulmonary embolism but showed worsening right middle lobe consolidation. Patient was shifted to [place] [facility] then he was admitted to the hospitalist service. During the hospital stay patient was started on broad-spectrum antibiotics vancomycin and levofloxacin. Patient is getting better , cough is at baseline no evidence of hemoptysis, denies any other constitutional symptoms. From 01/2017 he had 4 episodes of pneumonia month of April ,he had a bronchoscopy at [facility] for consult for postobstructive pneumonia concerning for malignancy. [facility] [place] end[facility]ial biopsy was negative for any malignancy cytology showed atypical cells most likely squamous metaplasia. There are no microbiology workup was done on the BAL from [facility] and confirmed with the patient that they did not do any workup for bacteria fungus and the family said they are not aware of any pending results in [facility]. Patient denies any current chest pain patient states he feels a lot better back to his baseline he is ready to go home. Past Med Surg Social Fam HX - Past Medical History Medical history: arthritis, COPD, coronary artery disease, diabetes, hyperlipidemia, hypertension, myocardial infarction, peripheral artery disease Psychiatric history: no psych history - Past Surgical History Surgical History: angioplasty/stent - Social History Smoking Status: Former smoker Smokeless Tobacco Status: No Alcohol use: none Drug use: none - Family History Father Family Member Ethnicity: Non- Living Status: Age at : 85 Hx Family Cardiac Disorders: Yes (self has AICD,) Hx Family Respiratory Disorders: Yes (self,uncle,father) Hx Family Cancer: Yes (father,sisters,) Hx Family GI Disorders: No Hx Family Endocrine Disorder: Yes (self) Hx Family Neuromuscular Disorders: No Hx Family Neurologic Disorders: No Hx Family HEENT Disorders: No Hx Family Autoimmune Disorders: No Medications and Allergies Metoprolol [Lopressor] 50 mg PO BID 05/27/15 [History] Simvastatin [Zocor] 80 mg PO HS 05/27/15 [History] Naproxen [Naprosyn] 500 mg PO BID 08/12/16 [History] Sertraline [Zoloft] 200 mg PO HS 08/12/16 [History] Tiotropium [Spiriva] 2 puff IH DAILY 08/12/16 [History] metFORMIN [Glucophage] 500 mg PO BIDWM 08/12/16 [History] Aspirin 81 mg PO DAILY 04/28/17 [History] Budesonide/Formoterol 80/4.5 [Symbicort 80/4.5] 2 puff IH Q12H 04/28/17 [ History] Cholecalciferol (D-3) [Vitamin D] 1,000 unit PO DAILY 04/28/17 [History] Docusate [Colace] 200 mg PO DAILY 04/28/17 [History] Ipratropium/Albuterol Neb [Duoneb] 3 ml IH TID PRN 04/28/17 [History] Lisinopril/Hydrochlorothiazide [Zestoretic 10-12.5 mg Tablet] 1 each PO DAILY [History] 3 Allergy/AdvReac Type Severity Reaction Status Date / Time azithromycin [From Zithromax] Allergy Hives Verified 04/28/17 17:48 All Systems: A 10-system review of systems was performed and is negative for pertinent findings except as documented above in the HPI. Physical Examination Vital Signs: Vital Signs, Last 4 Hours Temp Pulse Resp BP Pulse Ox 05/01/17 07:59 16 93 05/01/17 06:59 97.4 F L 64 17 149/83 90 General appearance: no acute distress Eyes: nonicteric Neck: supple, no lymphadenopathy Effort: normal Inspection: normal Auscultation: bilateral: diminished breath sounds Cardiovascular: regular rate and rhythm Gastrointestinal: normoactive bowel sounds Extremities: no edema Musculoskeletal: no deformities Gait: normal gait normal mental status, non-focal exam mood appropriate Results - Laboratory Findings CBC and BMP: 05/01/17 04:42 05/01/17 04:42 ABG ABG pH 7.41 pH Units (7.32-7.45) 04/28/17 18:45 ABG pCO2 45 mmHg (35-45) 04/28/17 18:45 ABG pO2 58 mmHg (85-104) L 04/28/17 18:45 ABG O2 Saturation 90 % (95-98) L 04/28/17 18:45 PT/INR, D-dimer PT 13.0 Seconds (9.4-12.1) H 04/29/17 04:39 Abnormal lab findings: Abnormal lab results RBC 3.77 M/mcL (4.19-5.50) L 05/01/17 04:42 Hgb 10.7 g/dL (12.9-16.9) L 05/01/17 04:42 Hct 32.7 % (37.5-50.1) L 05/01/17 04:42 RDW 17.8 % (11.5-14.5) H 05/01/17 04:42 Monocytes # 2.5 K/mcL (0.0-1.3) H 04/29/17 04:39 Reactive Lymphocytes Present (Not Present) A 04/29/17 04:39 Large Platelets Present (Not Present) A 04/29/17 04:39 Polychromasia 1+ (Not Present) A 04/29/17 04:39 Anisocytosis 1+ (Not Present) A 04/29/17 04:39 Microcytosis Present (Not Present) A 04/29/17 04:39 Macrocytosis Present (Not Present) A 04/29/17 04:39 PT 13.0 Seconds (9.4-12.1) H 04/29/17 04:39 ABG pO2 58 mmHg (85-104) L 04/28/17 18:45 ABG HCO3 28.5 mEQ/L (21-27) H 04/28/17 18:45 ABG Total CO2 29.9 mEq/L (20-26) H 04/28/17 18:45 ABG O2 Saturation 90 % (95-98) L 04/28/17 18:45 ABG Base Excess 3.4 mEq/L (-2.0 to 3.0) H 04/28/17 18:45 Glucose 119 mg/dL (70-99) H 05/01/17 04:42 POC Glucose 112 (58-89) H 04/30/17 20:45 Albumin 3.3 g/dL (3.5-5.0) L 04/29/17 04:39 Albumin/Globulin Ratio 1.0 (1.1-2.2) L 04/29/17 04:39 Vancomycin Trough 25.0 mcg/mL (10-20) H* 04/30/17 07:45 - Diagnostic Findings CT scan - chest: image reviewed (Personally reviewed the CT images the mediastinal windows did not show any evidence of significant lymphadenopathy. Right middle lobe consolidation was found the right middle lobe bronchus was narrowed is no evidence of lymph node around it, there is no obvious and endobronchial lesion in the CT imaging. The lateral segment lateral segment of MIDDLE lobe is more consolidated process odilia the medial segement for the right middle lobe.) - Clinical Findings Intake & Output: Intake & Output 04/30/17 05/01/17 05/01/17 23:59 07:59 15:59 Intake Total 250 / 250 240 / 240 Balance 250 / 250 240 / 240 Consult Discharge Plan - Plan [facility]errals: [facility] [Primary Care Provider] -
--- NOTE | 2017-05-01 15:53 | Internal Med Progress Note ---
Date of Encounter: 05/01/17 Time of Encounter: 15:50 - Assessment and plan (1) Postobstructive pneumonia Current Visit: Yes Status: Acute Assessment and plan: 6 mo hx of recurrent pneumonia. [facility] biopsy twice in last 2 weeks. hx COPD. In Ed patient was given vanc + levaquin prior to cultures. We received some records from [facility] but we did not get any imaging. Biopsy/FNA see record: Inconclusive/nondiagnostic Plan: Chest x-ray CT chest with contrast 05/01/2017. A right middle lobe pneumonia. Presently on vancomycin/levofloxacin. CT chest/x-ray: Confirms the finding of a right middle lobe pneumonia Patient has previous multiple bronchoscopies. Informed pulmonary service. Appreciated their recommendations. Nothing by mouth forearm midnight for a bronchoscopy tomorrow. (2) COPD (chronic obstructive pulmonary disease) Current Visit: Yes Status: Acute Qualifiers: COPD type: COPD with acute lower respiratory infection Qualified Code(s): J44.0 - Chronic obstructive pulmonary disease with acute lower respiratory infection (3) Type 2 diabetes mellitus Current Visit: Yes Status: Chronic Assessment and plan: - hold metformin - ct. SSI Qualifiers: Diabetes mellitus complication status: without complication Diabetes mellitus group home insulin use: without group home use Qualified Code(s): E11.9 - Type 2 diabetes mellitus without complications (4) DVT prophylaxis Current Visit: Yes Status: Acute Assessment and plan: Ct. heparin I have spoken to mineral industry teacher Dr. Rosado. We will get imaging. Possible bronchoscopy/interventional procedure on Tuesday. We will keep patient nothing by mouth from Tuesday midnight - Subjective Interval history: Seen and examined. Chart reviewed. Patient is comfortably lying in a bed. Patient denies cough, chest pain, shortness of breath, abdominal pain, nausea, diarrhea and dizziness. 05/01/2017. Patient seen and examined. Patient is comfortably sitting up along the bedside. patient's at bedside. Patient denies chest pain, shortness of breath, abdominal pain, nausea, vomiting , diarrhea and dizziness - Constitutional Vitals: Temp Pulse Resp BP Pulse Ox 97.7 F 72 16 127/60 91 05/01/17 11:33 05/01/17 11:33 05/01/17 15:28 05/01/17 11:33 05/01/17 15:28 General appearance: Present: cooperative, mild distress, A&O X 3, pleasant, answers questions appropriately - Head Head exam: Present: atraumatic, normocephalic - Eye Eye exam: Present: PERRL, conjuntiva pink, sclera anicteric Pupils: Present: PERRL - Neck Neck exam general surgery: Present: supple, trachea midline. Absent: lymphadenopathy - Respiratory Respiratory exam: Present: CTAB. Absent: accessory muscle use, rales, rhonchi, wheezes - Cardiovascular Cardiovascular exam: Present: RRR, +S1, +S2. Absent: diastolic murmur, gallop, rubs, systolic murmur - GI/Abdominal GI/Abdominal exam: Present: normal bowel sounds, soft, no peritoneal signs. Absent: distended, tenderness - Extremities Exam Extremities exam: Present: warm, radial pulses palpable and symmetrical. Absent : calf tenderness, cyanotic, pedal edema - Neurological Exam Neurological exam: Present: CN II-XII intact, oriented X3, no focal deficits. Absent: pronater drift, facial droop, speech deficit - Skin Skin exam: Present: dry, intact Internal Medicine: Result - Labs CBC & Chem 7: 05/01/17 04:42 05/01/17 04:42 Labs: Short CBC 05/01/17 Range/Units 04:42 WBC 7.7 (4.3-11.1) K/mcL Hgb 10.7 L (12.9-16.9) g/dL Hct 32.7 L (37.5-50.1) % Plt Count 151 (140-400) K/mcL BMP 05/01/17 04:42 Sodium 140 Potassium 3.8 Chloride 105 Carbon Dioxide 25 BUN 15 Creatinine 1.10 Glucose 119 H Calcium 8.9 - ABG Interpretation ABG results: ABG ABG pH 7.41 pH Units (7.32-7.45) 04/28/17 18:45 ABG pCO2 45 mmHg (35-45) 04/28/17 18:45 ABG pO2 58 mmHg (85-104) L 04/28/17 18:45 ABG O2 Saturation 90 % (95-98) L 04/28/17 18:45 PT/INR, D-dimer PT 13.0 Seconds (9.4-12.1) H 04/29/17 04:39 - Impressions Impressions Chest CT 04/30/17 17:00 IMPRESSION: 1. Unchanged right middle lobe consolidation favoring pneumonia. Recommend chest radiograph in 8 weeks to confirm resolution. 2. Enlarging small right pleural effusion. D/ / Diogo Navas MD / Diogo Navas MD Interpreting Provider: Diogo Navas MD Consult Discharge Plan - Plan [facility]errals: [facility] [Primary Care Provider] -
[2017-05-02] MEDS: Ipratropium/Albuterol Neb 3 ML IH SCH ×5 (03:25→20:16)
[2017-05-02 04:37] LABS: Hematocrit 33.5 % (37.5-50.1); Hemoglobin 10.7 g/dL (12.9-16.9); Mean Corpuscular HGB Conc 31.9 g/dL (31.6-35.5); Mean Corpuscular Hemoglobin 27.4 pg (28.0-33.3); Mean Corpuscular Volume 85.9 fL (83.0-100.0); Mean Platelet Volume 10.7 fL (9.4-12.4); Platelet Count 175 K/mcL (140-400); Red Cell Distribution Width 17.9 % (11.5-14.5)
[2017-05-02 04:49] LABS: BUN/Creatinine Ratio 18 (6-26); Blood Urea Nitrogen 19 mg/dL (8-26); Calcium 9.4 mg/dL (8.6-10.8); Carbon Dioxide 25 mEq/L (19-29); Chloride 106 mEq/L (98-109); Glucose 115 mg/dL (70-99); Osmolality,Calculated 295 (280-300); Potassium 4.1 mEq/L (3.5-4.5); Sodium 141 mEq/L (136-145); eGFR For African Americans > 60 (> 60); eGFR For Non-African Americans > 60 (> 60)
[2017-05-02] MEDS: Vancomycin 1,000 MG in D5% in Water 250 ML IVPB SCH ×2 (05:34→18:09)
[2017-05-02] MEDS: Budesonide/Formoterol 80/4.5 MDI IH SCH ×2 (07:56→20:16)
[2017-05-02] MEDS ORDERED: *HR* EPINEPHrine 1 MG/10 ML SYRINGE INTRATRACH PRN (08:18)
[2017-05-02] MEDS ORDERED: Tetracaine/Benzocaine/Butamben 200MG/SPRAY (100SPY/BOT) MM ONE (08:18)
--- NOTE | 2017-05-02 08:18 | Pre-Sedation Evaluation ---
Pre-sedation evaluation - Pre-sedation checklist Date of procedure: 05/02/17 Procedure: Bronchoscopy Recent Vitals: Last Vital Signs Temp 98.4 F 05/02/17 05:48 Pulse 61 05/02/17 07:49 Resp 15 05/02/17 07:59 BP 150/75 05/02/17 07:49 Pulse Ox 93 05/02/17 07:59 H&P (including ROS) documented in medical record: Yes Previous reaction to sedatives/anesthetics: No Dietary Status: NPO after Midnight Airway Assessment: Patient can open mouth completely, TMJ function normal Dentition: poor dentition Possible difficult airway: Yes If Yes;: Morbid obesity ASA Classification *see protocol: CLASS III-Severe systemic disease Plan of Care: Pt appropriate candidate for procedure/moderate/conscious sedation , Risks/benefits of procedure/sedation discussed w/ patient/family
[2017-05-02] MEDS ORDERED: 0.9 % Sodium Chloride 1,000 ML IVC SCH (08:30)
--- NOTE | 2017-05-02 08:32 | Event Note ---
Date of Encounter: 05/02/17 Time of Encounter: 08:[address]'s [address] scan he has persistent right middle lobe collapse over we would determine as "right middle lobe syndrome" plan for bronchoscopy today with bronchoalveolar lavage brushings possible biopsy and possible balloon dilation. The procedure , risks, benefits, complications, and expected outcomes have been reviewed. Benefits of diagnosis, as well as risks to include bleeding, infection, pneumothorax which may require surgical intervention, and in a small population. The patient is aware that sometimes test is nondiagnostic. Discussed with patient and agrees to proceed. He has been nothing by mouth since midnight
[2017-05-02] MEDS: Insulin LISPRO 300 UNITS/3 ML VIAL SQ SCH ×3 (10:06→16:57)
[2017-05-02] MEDS: *HR* Heparin 5,000 UNIT/ML VIAL SQ SCH ×3 (10:17→22:03)
[2017-05-02] MEDS: Aspirin 81 MG TAB.CHEW PO SCH (10:21)
[2017-05-02] MEDS: Cholecalciferol (D-3) 1,000 UNIT TABLET PO SCH (10:22)
[2017-05-02] MEDS ORDERED: *HR* Midazolam HCl 5 MG/5 ML VIAL IVP ONE (11:42)
[2017-05-02] MEDS ORDERED: Lidocaine Viscous Oral Soln 15 ML SOLUTION ONE (11:43)
[2017-05-02] MEDS ORDERED: *HR* FentaNYL (PF) 100 MCG/2 ML VIAL ONE (11:43)
[2017-05-02] MEDS ORDERED: Aminoglycoside Consult 1 EACH MC ONE (11:53)
[2017-05-02] MEDS: *HR* Midazolam HCl 5 MG/5 ML VIAL IVP PRN ×3 (12:20→12:28)
[2017-05-02] MEDS: *HR* FentaNYL (PF) 100 MCG/2 ML VIAL IVP PRN ×2 (12:21→12:33)
[2017-05-02] MEDS ORDERED: *HR* Metoprolol 5 MG/5 ML VIAL IVP ONE (12:33)
[2017-05-02] MEDS ORDERED: *HR* Metoprolol 5 MG/5 ML VIAL IVP SCH (12:45)
--- NOTE | 2017-05-02 16:42 | Internal Med Progress Note ---
Date of Encounter: 05/02/17 Time of Encounter: 16:40 - Assessment and plan (1) Postobstructive pneumonia Current Visit: Yes Status: Acute Assessment and plan: 6 mo hx of recurrent pneumonia. [facility] biopsy twice in last 2 weeks. hx COPD. In Ed patient was given vanc + levaquin prior to cultures. We received some records from [facility] but we did not get any imaging. Biopsy/FNA see record: Inconclusive/nondiagnostic Plan: Chest x-ray CT chest with contrast 05/01/2017. A right middle lobe pneumonia. Presently on vancomycin/levofloxacin. CT chest/x-ray: Confirms the finding of a right middle lobe pneumonia Patient has previous multiple bronchoscopies. Informed pulmonary service. Appreciated their recommendations. Nothing by mouth forearm midnight for a bronchoscopy tomorrow. 05/02/2017 Status post bronchoscopy. We will follow the recommendations from pulmonary. Presently continue the same antibiotics. Follow-up with pulmonary in 1-2 weeks. Follow-up with PCP in 1-2 weeks. Likely home tomorrow (2) COPD (chronic obstructive pulmonary disease) Current Visit: Yes Status: Acute Assessment and plan: - SpO2 93% 4L O2 - Ct levaquin - O2 prn - duonebs and resp support prn - consider solmuderol if wheezing worsens - CPAP/BIPAP if necessary Qualifiers: COPD type: COPD with acute lower respiratory infection Qualified Code(s): J44.0 - Chronic obstructive pulmonary disease with acute lower respiratory infection (3) Type 2 diabetes mellitus Current Visit: Yes Status: Chronic Assessment and plan: - hold metformin - ct. 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 heparin I have spoken to splicer operator Dr. Rosado. We will get imaging. Possible bronchoscopy/interventional procedure on Tuesday. We will keep patient nothing by mouth from Tuesday midnight - Subjective Interval history: Seen and examined. Chart reviewed. Patient is comfortably lying in a bed. Patient denies cough, chest pain, shortness of breath, abdominal pain, nausea, diarrhea and dizziness. 05/01/2017. Patient seen and examined. Patient is comfortably sitting up along the bedside. patient's at bedside. Patient denies chest pain, shortness of breath, abdominal pain, nausea, vomiting , diarrhea and dizziness 05/02/2017 Patient seen and examined. Chart reviewed. Patient is comfortably sleeping in a bed with the mask along with CPAP. Noted that bronchoscopy was performed today area Patient denies hemoptysis, cough, chest pain, shortness of breath or dizziness - Constitutional Vitals: Temp Pulse Resp BP Pulse Ox 97.6 F 69 89 127/87 91 05/02/17 11:59 05/02/17 12:45 05/02/17 16:07 05/02/17 12:45 05/02/17 16:07 General appearance: Present: cooperative, mild distress, A&O X 3, pleasant, answers questions appropriately - Head Head exam: Present: atraumatic, normocephalic - Eye Eye exam: Present: PERRL, conjuntiva pink, sclera anicteric Pupils: Present: PERRL - Neck Neck exam general surgery: Present: supple, trachea midline. Absent: lymphadenopathy - Respiratory Respiratory exam: Present: CTAB. Absent: accessory muscle use, rales, rhonchi, wheezes - Cardiovascular Cardiovascular exam: Present: RRR, +S1, +S2. Absent: diastolic murmur, gallop, rubs, systolic murmur - GI/Abdominal GI/Abdominal exam: Present: normal bowel sounds, soft, no peritoneal signs. Absent: distended, tenderness - Extremities Exam Extremities exam: Present: warm, radial pulses palpable and symmetrical. Absent : calf tenderness, cyanotic, pedal edema - Neurological Exam Neurological exam: Present: CN II-XII intact, oriented X3, no focal deficits. Absent: pronater drift, facial droop, speech deficit - Skin Skin exam: Present: dry, intact Internal Medicine: Result - Labs CBC & Chem 7: 05/02/17 04:24 05/02/17 04:24 Labs: Short CBC 05/02/17 Range/Units 04:24 WBC 7.8 (4.3-11.1) K/mcL Hgb 10.7 L (12.9-16.9) g/dL Hct 33.5 L (37.5-50.1) % Plt Count 175 (140-400) K/mcL BMP 05/02/17 04:24 Sodium 141 Potassium 4.1 Chloride 106 Carbon Dioxide 25 BUN 19 Creatinine 1.08 Glucose 115 H Calcium 9.4 - ABG Interpretation ABG results: ABG ABG pH 7.41 pH Units (7.32-7.45) 04/28/17 18:45 ABG pCO2 45 mmHg (35-45) 04/28/17 18:45 ABG pO2 58 mmHg (85-104) L 04/28/17 18:45 ABG O2 Saturation 90 % (95-98) L 04/28/17 18:45 PT/INR, D-dimer PT 13.0 Seconds (9.4-12.1) H 04/29/17 04:39 Consult Discharge Plan - Plan Referrals: [facility] [Primary Care Provider] -
[2017-05-02] MEDS: levoFLOXacin 750 MG TABLET PO SCH (16:57)
[2017-05-02 19:34] LABS: Appearance of Body Fluid Hazy (Clear); Source of Body Fluid RML BAL; Volume of Body Fluid 12 mL
[2017-05-03] MEDS: Ipratropium/Albuterol Neb 3 ML IH SCH ×4 (00:28→11:10)
[2017-05-03] MEDS: Vancomycin 1,000 MG in D5% in Water 250 ML IVPB SCH (05:08)
[2017-05-03 05:12] LABS: Hematocrit 34.6 % (37.5-50.1); Hemoglobin 11.3 g/dL (12.9-16.9); Mean Corpuscular HGB Conc 32.7 g/dL (31.6-35.5); Mean Corpuscular Hemoglobin 28.1 pg (28.0-33.3); Mean Corpuscular Volume 86.1 fL (83.0-100.0); Mean Platelet Volume 10.6 fL (9.4-12.4); Platelet Count 167 K/mcL (140-400); Red Blood Count 4.02 M/mcL (4.19-5.50); Red Cell Distribution Width 18.5 % (11.5-14.5)
[2017-05-03 05:25] LABS: BUN/Creatinine Ratio 18 (6-26); Blood Urea Nitrogen 22 mg/dL (8-26); Calcium 9.4 mg/dL (8.6-10.8); Carbon Dioxide 25 mEq/L (19-29); Chloride 103 mEq/L (98-109); Glucose 112 mg/dL (70-99); Osmolality,Calculated 288 (280-300); Potassium 4.1 mEq/L (3.5-4.5); Sodium 137 mEq/L (136-145); eGFR For African Americans > 60 (> 60); eGFR For Non-African Americans 59 (> 60)
[2017-05-03] MEDS: Budesonide/Formoterol 80/4.5 MDI IH SCH (07:39)
[2017-05-03] MEDS: levoFLOXacin 750 MG TABLET PO SCH (07:54)
[2017-05-03] MEDS: *HR* Heparin 5,000 UNIT/ML VIAL SQ SCH (07:54)
[2017-05-03] MEDS: Cholecalciferol (D-3) 1,000 UNIT TABLET PO SCH (07:54)
[2017-05-03] MEDS: Aspirin 81 MG TAB.CHEW PO SCH (07:54)
[2017-05-03] MEDS: Insulin LISPRO 300 UNITS/3 ML VIAL SQ SCH (07:55)
--- NOTE | 2017-05-03 08:41 | Pulmonology Progress Note ---
Date of Encounter: 05/03/17 Time of Encounter: 08:38 Assessment and Plan (1) Acute on chronic respiratory failure with hypoxemia Current Visit: Yes Status: Acute Impression: This is a 67-year-old gentleman who has a history of COPD chronic respiratory failure and recurrent pneumonia found to have right middle lobe syndrome. Bronchoscopy yesterday was notable for tracheobronchomalacia with dynamic collapse especially noted in the right mainstem bronchus. The right tracheobronchial tree in general had evidence of acute on chronic bronchitic changes including friable mucosa erythema and purulent discharge. The right middle lobe was notable for the lateral segment being partially obstructed from intrinsic edema and erythema of that airway. There is no obstructing lesion per se however BAL was performed in this area and brushings were obtained the mucosal abnormality was not suggestive of malignancy although this cannot be entirely excluded and he is at increased risk for this given his age smoking history and exposure to Agent [place] in [place]. Recs: The mainstay of therapy for his condition is aggressive bronchopulmonary toileting including flutter valve use 3-4 times a day 10-15 times a sitting he will also need aggressive bronchodilator support at least 4 times a day he is currently receiving an inhaled corticosteroid/long-acting beta agonist which in general terms inhaled corticosteroids as relatively contraindicated in this condition and should transitioned to long acting muscarinic agent with a long- acting beta agonist . Additionally CPAP can be very useful in this condition and I have encouraged him to wear this not only at night for known to diagnosis of obstructive sleep apnea but more often during the day when he sitting watching television etc. He is engaged in pulmonary rehabilitation which is an excellent adjunctive therapy. I have also invited him to follow-up in the Pulmonary clinic to discuss test results and consolidate plan of care from Pulmonary standpoint I do not see a need for him to remain in the hospital if primary medicine service feels that he is ready to be discharged. A course of antimicrobials for one week which (respiratory fluoroquinolone is an appropriate choice) can be delivered in an oral formulation. Pulmonary will sign off. Please call with questions thank you for this consult (2) COPD (chronic obstructive pulmonary disease) Current Visit: Yes Status: Acute Qualifiers: COPD type: COPD with acute lower respiratory infection Qualified Code(s): J44.0 - Chronic obstructive pulmonary disease with acute lower respiratory infection (3) Obesity (BMI 30-39.9) Current Visit: No Status: Chronic (4) Sleep apnea in adult Current Visit: No Status: Chronic (5) DVT prophylaxis Current Visit: No Status: Acute (6) Bronchomalacia, acquired Current Visit: Yes Status: Acute Subjective Principal diagnosis: Pneumonia Interval history: Did well overnight wean back down to baseline 3 L oxygen no untoward effects status post bronchoscopy Objective PUL Vital signs: Last Vital Signs Temp 97.7 F 05/03/17 06:49 Pulse 64 05/03/17 06:49 Resp 18 05/03/17 06:49 BP 131/77 05/03/17 06:49 Pulse Ox 90 05/03/17 06:49 General appearance: no acute distress Auscultation: right: diminished breath sounds Cardiovascular: regular rate and rhythm Gastrointestinal: normoactive bowel sounds Extremities: edema Results - Laboratory Findings CBC and BMP: 05/03/17 04:54 05/03/17 04:54 ABG ABG pH 7.41 pH Units (7.32-7.45) 04/28/17 18:45 ABG pCO2 45 mmHg (35-45) 04/28/17 18:45 ABG pO2 58 mmHg (85-104) L 04/28/17 18:45 ABG O2 Saturation 90 % (95-98) L 04/28/17 18:45 PT/INR, D-dimer PT 13.0 Seconds (9.4-12.1) H 04/29/17 04:39 Abnormal lab findings: Abnormal lab results RBC 4.02 M/mcL (4.19-5.50) L 05/03/17 04:54 Hgb 11.3 g/dL (12.9-16.9) L 05/03/17 04:54 Hct 34.6 % (37.5-50.1) L 05/03/17 04:54 RDW 18.5 % (11.5-14.5) H 05/03/17 04:54 Monocytes # 2.5 K/mcL (0.0-1.3) H 04/29/17 04:39 Reactive Lymphocytes Present (Not Present) A 04/29/17 04:39 Large Platelets Present (Not Present) A 04/29/17 04:39 Polychromasia 1+ (Not Present) A 04/29/17 04:39 Anisocytosis 1+ (Not Present) A 04/29/17 04:39 Microcytosis Present (Not Present) A 04/29/17 04:39 Macrocytosis Present (Not Present) A 04/29/17 04:39 PT 13.0 Seconds (9.4-12.1) H 04/29/17 04:39 ABG pO2 58 mmHg (85-104) L 04/28/17 18:45 ABG HCO3 28.5 mEQ/L (21-27) H 04/28/17 18:45 ABG Total CO2 29.9 mEq/L (20-26) H 04/28/17 18:45 ABG O2 Saturation 90 % (95-98) L 04/28/17 18:45 ABG Base Excess 3.4 mEq/L (-2.0 to 3.0) H 04/28/17 18:45 Est GFR (Non-Af Amer) 59 (> 60) L 05/03/17 04:54 Glucose 112 mg/dL (70-99) H 05/03/17 04:54 POC Glucose 121 (58-89) H 05/03/17 06:55 Albumin 3.3 g/dL (3.5-5.0) L 04/29/17 04:39 Albumin/Globulin Ratio 1.0 (1.1-2.2) L 04/29/17 04:39 Fluid Appearance Hazy (Clear) A 05/02/17 16:06 - Microbiology Findings Microbiology Findings: Microbiology, Last 48 Hours 05/02/17 16:06 Gram Stain - Final Right Middle Lobe Lung 05/01/17 13:19 Cryptococcal Antigen - Final Serum - Clinical Findings Intake & Output: Intake & Output 05/02/17 05/03/17 05/03/17 23:59 07:59 15:59 Intake Total 250 / 250 250 / 250 Balance 250 / 250 250 / 250 Weight 117 kg Consult Discharge Plan - Plan [facility]errals: [facility] [Primary Care Provider[facility] -
--- NOTE | 2017-05-03 10:03 | Discharge Summary ---
<Bin Alcaraz R - Last Filed: 05/03/17 11:23> Date of Encounter: 05/03/17 Time of Encounter: 09:33 - Discharge Diagnosis (1) Postobstructive pneumonia Priority: Primary Status: Acute (2) COPD (chronic obstructive pulmonary disease) Priority: Secondary Status: Acute Qualifiers: COPD type: COPD with acute lower respiratory infection Qualified Code(s): J44.0 - Chronic obstructive pulmonary disease with acute lower respiratory infection (3) Type 2 diabetes mellitus Priority: Secondary Status: Chronic Qualifiers: Diabetes mellitus complication status: without complication Diabetes mellitus longterm insulin use: without buttermaker helper use Qualified Code(s): E11.9 - Type 2 diabetes mellitus without complications - Discharge Medications Prescriptions: Salmeterol Xinafoate [Serevent Diskus] 50 mcg IH BID #1 blst.w.dev Home Medications: Metoprolol [Lopressor] 50 mg PO BID 05/27/15 [History] Simvastatin [Zocor] 80 mg PO HS 05/27/15 [History] Naproxen [Naprosyn] 500 mg PO BID 08/12/16 [History] Sertraline [Zoloft] 200 mg PO HS 08/12/16 [History] Tiotropium [Spiriva] 2 puff IH DAILY 08/12/16 [History] metFORMIN [Glucophage] 500 mg PO BIDWM 08/12/16 [History] Aspirin 81 mg PO DAILY 04/28/17 [History] Cholecalciferol (D-3) [Vitamin D] 1,000 unit PO DAILY 04/28/17 [History] Docusate [Colace] 200 mg PO DAILY 04/28/17 [History] Ipratropium/Albuterol Neb [Duoneb] 3 ml IH TID PRN 04/28/17 [History] Lisinopril/Hydrochlorothiazide [Zestoretic 10-12.5 mg Tablet] 1 each PO DAILY [History] Salmeterol Xinafoate [Serevent Diskus] 50 mcg IH BID #1 blst.w.dev 05/03/17 [Rx] Allergies/Adverse Reactions: 3 Allergy/AdvReac Type Severity Reaction Status Date / Time azithromycin [From Zithromax] Allergy Hives Verified 04/28/17 17:48 Procedures/tests Complete & Pending: Procedures Performed prior 72 hours Category Date Time Status CT chest w con [CT] Routine Cat Scan 04/30/17 17:00 Completed Date of admission: 04/29/17 13:06 [facility] care [facility] Discharging clinician: Bin Alcaraz Anticipated date of discharge: 05/03/17 - Patient Status Disposition: Home, Self-Care Condition: Fair Functional capacity at discharge: independent ambulation Overall status at discharge: patient is progressing back to baseline - Discharge Instructions Instructions: Pneumonia (DC) Follow Up With: [facility] [Primary Care Provider] - 05/09/17 12:30 pm Additional Instructions: Take antibiotic as prescribed for 7 more days Use Spiriva inhaler daily Use Salmeterol inhaler daily STOP Symbicort daily Continue Duonebs scheduled daily Follow-up with your primary care provider Follow-up with your terminal manager Return to the hospital if your symptoms return or worsen - Diet and Activity Activity: increase activity as tolerated Diet: advance to your usual diet Interval History: Patient seen and examined. He is feeling well with no complaints. Ready to go home. He reports his breathing is continuing to improve. Denies chills, chest pain, hemoptysis, N/V/D, dysuria, or leg pain/swelling. Hospital course: Mr. Edmonds is a 67 year old male who presents from [place] urgent care for concerns of right-sided chest pain, cough, fever, and shortness of breath, found to have postobstructive pneumonia. He has been treated for pneumonia several times since January of this year. He was placed on broad-spectrum antibiotics and blood cultures and sputum cultures were obtained showing no growth to date. He underwent bronchoscopy which showed atelectasis, mucus plug, obstructive pneumonia, and bronchoalveolar lavage was performed. Pulmonology recommended Levaquin for 7 days, continuing Duonebs, continuing Spiriva, and switching from Symbicort to LABA as inhaled corticosteroids are not helpful for his current condition. They will see him in the office for follow-up. He was discharged hemodynamically stable and understanding the treatment plan. - Time Spent with Patient Total time spent providing and/or coordinating discharge services: Greater than 30 minutes - Constitutional Vitals: Temp Pulse Resp BP Pulse Ox 97.7 F 64 18 131/77 90 05/03/17 06:49 05/03/17 06:49 05/03/17 06:49 05/03/17 06:49 05/03/17 06:49 General appearance: Present: cooperative, mild distress, A&O X 3, pleasant, answers questions appropriately - Head Head exam: Present: atraumatic, normocephalic - Eye Eye exam: Present: conjuntiva pink, sclera anicteric - ENT ENT exam: Present: mucous membranes moist - Respiratory Respiratory exam: Present: CTAB. Absent: rales, rhonchi, wheezes - Cardiovascular Cardiovascular exam: Present: RRR, +S1, +S2. Absent: diastolic murmur, systolic murmur - GI/Abdominal GI/Abdominal exam: Present: normal bowel sounds, soft. Absent: distended, rigid , tenderness - Extremities Exam Extremities exam: Present: warm, radial pulses palpable and symmetrical. Absent : cyanotic, pedal edema, tenderness - Neurological Exam Neurological exam: Present: alert, CN II-XII intact, oriented X3, no focal deficits - Skin Skin exam: Present: dry, intact <Sarita,Jordan P - Last Filed: 05/03/17 18:40> Date of Encounter: 05/03/17 - Discharge Diagnosis (1) Postobstructive pneumonia Status: Acute (2) COPD (chronic obstructive pulmonary disease) Status: Acute Qualifiers: COPD type: COPD with acute lower respiratory infection Qualified Code(s): J44.0 - Chronic obstructive pulmonary disease with acute lower respiratory infection (3) Type 2 diabetes mellitus Status: Chronic Qualifiers: Diabetes mellitus complication status: without complication Diabetes mellitus longterm insulin use: without buttermaker helper use Qualified Code(s): E11.9 - Type 2 diabetes mellitus without complications (4) DVT prophylaxis Status: Acute Date of admission: 04/29/17 13:06 Primary care physician: PCP [place] Hospital course: Mr. Edmonds is a 67 year old male - Time Spent with Patient Total time spent providing and/or coordinating discharge services: - Constitutional Vitals: Temp Pulse Resp BP Pulse Ox 97.7 F 65 18 105/64 94 05/03/17 10:41 05/03/17 10:41 05/03/17 11:11 05/03/17 10:41 05/03/17 11:11 - Attending Attestation I examined this patient and my medical decision-making was reviewed with the Resident Physician. I agree with the documented findings, disposition and treatment plan as described except to the extent set forth below.
[2017-05-03 10:47] VITALS: BP 105/64
[2017-05-03 23:27] LABS: A.galactomannan Ag Index 0.05
== END 2017-05-03 11:54 | disposition home or self-care (01) | DRG 166 ==
LOC: 2ANU 17:32 → EMEROO 17:32 → 2ANU 21:00
PROVIDERS: ADMIT Internal Medicine; ATTEND Internal Medicine

== ENCOUNTER 2017-06-18 17:01 | Observation (INO) ==
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
[2017-06-18 18:10] LABS: Basophils # 0.1 K/mcL (0.0-0.2); Basophils % 0.5 %; Eosinophils % 0.2 %; Hematocrit 35.7 % (37.5-50.1); Hemoglobin 11.2 g/dL (12.9-16.9); Immature Granulocytes % 1.4 % (0-4); Immature Platelets 7.7 % (1.1-6.1); Lymphocytes # 1.3 K/mcL (0.6-4.6); Lymphocytes % 9.8 %; Mean Corpuscular HGB Conc 31.4 g/dL (31.6-35.5); Mean Corpuscular Hemoglobin 27.3 pg (28.0-33.3); Mean Corpuscular Volume 86.9 fL (83.0-100.0); Monocytes # 2.5 K/mcL (0.0-1.3); Monocytes % 18.8 %; Neutrophils # 9.2 K/mcL (1.6-8.9); Platelet Count 160 K/mcL (140-400); Red Blood Count 4.11 M/mcL (4.19-5.50); Red Cell Distribution Width 19.3 % (11.5-14.5); Segmented Neutrophils % 69.3 %
[2017-06-18 18:21] LABS: BUN/Creatinine Ratio 19 (6-26); Blood Urea Nitrogen 24 mg/dL (8-26); Carbon Dioxide 26 mEq/L (19-29); Chloride 108 mEq/L (98-109); Glucose 99 mg/dL (70-99); Osmolality,Calculated 298 (280-300); Potassium 4.3 mEq/L (3.5-4.5); Sodium 142 mEq/L (136-145); eGFR For African Americans > 60 (> 60); eGFR For Non-African Americans 56 (> 60)
[2017-06-18 18:35] LABS: Platelet Estimate Normal (Normal)
[2017-06-18] MEDS ORDERED: Acetaminophen 325 MG TABLET PO PRN (20:51)
[2017-06-18] MEDS ORDERED: *HR* Morphine 2 MG/ML SYRINGE IVP PRN (20:51)
[2017-06-18] MEDS ORDERED: Ibuprofen 400 MG TABLET PO PRN (20:51)
[2017-06-18] MEDS ORDERED: Ondansetron 4 MG/2 ML VIAL IVP PRN (20:51)
[2017-06-18] MEDS ORDERED: Ipratropium/Albuterol Neb 3 ML IH PRN (20:51)
[2017-06-18] MEDS ORDERED: Naloxone 0.4 MG/ML INJ IVP PRN (20:51)
[2017-06-18] MEDS ORDERED: 0.9 % Sodium Chloride 1,000 ML IVC SCH (21:00)
[2017-06-18] MEDS ORDERED: Dextrose Gel 15 GM PO PRN ×2 (21:01)
[2017-06-18] MEDS ORDERED: D5% in Water 1,000 ML IVC PRN (21:01)
[2017-06-18] MEDS ORDERED: *HR* Dextrose 50 % in Water (Syg) 50 ML SYRINGE IVP PRN (21:01)
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
[2017-06-18 21:25] LABS: Prothrombin Time 11.1 Seconds (9.4-12.1)
[2017-06-18 21:28] LABS: Activated Partial Thrombo Time 27.6 Seconds (26.0-36.0)
[2017-06-19] MEDS: *HR* OxyCODONE Immed Rel 5 MG TABLET PO PRN ×2 (03:07→10:04)
[2017-06-19 03:48] LABS: Hematocrit 34.5 % (37.5-50.1); Mean Corpuscular HGB Conc 31.9 g/dL (31.6-35.5); Mean Corpuscular Hemoglobin 27.9 pg (28.0-33.3); Mean Corpuscular Volume 87.6 fL (83.0-100.0); Mean Platelet Volume 10.7 fL (9.4-12.4); Platelet Count 127 K/mcL (140-400); Red Blood Count 3.94 M/mcL (4.19-5.50); Red Cell Distribution Width 19.4 % (11.5-14.5)
[2017-06-19 03:54] LABS: BUN/Creatinine Ratio 23 (6-26); Blood Urea Nitrogen 27 mg/dL (8-26); Calcium 8.6 mg/dL (8.6-10.8); Carbon Dioxide 27 mEq/L (19-29); Chloride 109 mEq/L (98-109); Glucose 101 mg/dL (70-99); Magnesium 2.2 mg/dL (1.6-2.6); Osmolality,Calculated 299 (280-300); Potassium 3.9 mEq/L (3.5-4.5); Sodium 142 mEq/L (136-145); eGFR For African Americans > 60 (> 60); eGFR For Non-African Americans > 60 (> 60)
[2017-06-19 04:22] LABS: Lymphocytes # 1.6 K/mcL (0.6-4.6); Monocytes # 1.8 K/mcL (0.0-1.3); Neutrophils # 6.4 K/mcL (1.6-8.9)
[2017-06-19 04:23] LABS: Large Platelets Present (Not Present); Platelet Estimate Slight Decrease (Normal)
[2017-06-19 06:50] VITALS: BP 128/78
[2017-06-19] MEDS ORDERED: Insulin LISPRO 300 UNITS/3 ML VIAL SQ SCH (07:30)
[2017-06-19] MEDS ORDERED: Cholecalciferol (D-3) 1,000 UNIT TABLET PO SCH (09:00)
[2017-06-19] MEDS ORDERED: Tiotropium 18 MCG inhalation IH SCH (09:00)
[2017-06-19] MEDS ORDERED: Aspirin 81 MG TAB.CHEW PO SCH (09:00)
--- NOTE | 2017-06-19 09:06 | Discharge Summary ---
Date of Encounter: 06/19/17 Time of Encounter: 09:02 - Discharge Diagnosis (1) Rib fractures Priority: Primary Status: Acute Qualifiers: Encounter type: initial encounter Rib fracture type: multiple ribs Fracture type: closed Laterality: left Qualified Code(s): S22.42XA - Multiple fractures of ribs, left side, initial encounter for closed fracture (2) CAD (coronary artery disease) Priority: Secondary Status: Chronic Qualifiers: Coronary Disease-Associated Artery/Lesion type: [place] artery [place] vs. transplanted heart: [place] heart Associated angina: without angina Qualified Code(s): I25.10 - Atherosclerotic heart disease of [place] coronary artery without angina pectoris (3) COPD (chronic obstructive pulmonary disease) Priority: Secondary Status: Chronic Qualifiers: COPD type: emphysema Emphysema type: panlobular Qualified Code(s): J43.1 - Panlobular emphysema (4) DVT prophylaxis Priority: Secondary Status: Acute (5) Type 2 diabetes mellitus Priority: Secondary Status: Chronic Qualifiers: Diabetes mellitus complication status: without complication Diabetes mellitus remittance clerk insulin use: without remittance clerk use Qualified Code(s): E11.9 - Type 2 diabetes mellitus without complications - Discharge Medications Prescriptions: Acetaminophen [8 Hour] 650 mg PO Q6HR PRN #30 tablet.er PRN Reason: Mild Pain Oxycodone HCl/Acetaminophen [Percocet 5-325 mg Tablet] 1 each PO Q6HR PRN #10 tablet PRN Reason: Moderate Pain Home Medications: Metoprolol [Lopressor] 50 mg PO BID 05/27/15 [History] Simvastatin [Zocor] 80 mg PO HS 05/27/15 [History] Naproxen [Naprosyn] 500 mg PO 08/12/16 [History] Sertraline [Zoloft] 200 mg PO HS 08/12/16 [History] Tiotropium [Spiriva] 2 puff IH DAILY 08/12/16 [History] metFORMIN [Glucophage] 500 mg PO BIDWM 08/12/16 [History] Aspirin 81 mg PO DAILY 04/28/17 [History] Cholecalciferol (D-3) [Vitamin D] 1,000 unit PO DAILY 04/28/17 [History] Docusate [Colace] 200 mg PO DAILY 04/28/17 [History] Ipratropium/Albuterol Neb [Duoneb] 3 ml IH TID PRN 04/28/17 [History] Lisinopril/Hydrochlorothiazide [Zestoretic 10-12.5 mg Tablet] 1 each PO DAILY [History] Salmeterol Xinafoate [Serevent Diskus] 50 mcg IH BID #1 blst.w.dev 05/03/17 [Rx] Acetaminophen [8 Hour] 650 mg PO Q6HR PRN #30 tablet.er 06/19/17 [Rx] Oxycodone HCl/Acetaminophen [Percocet 5-325 mg Tablet] 1 each PO Q6HR PRN #10 tablet 06/19/17 [Rx] Allergies/Adverse Reactions: 3 Allergy/AdvReac Type Severity Reaction Status Date / Time azithromycin [From Zithromax] Allergy Hives Verified 06/18/17 17:10 Procedures/tests Complete & Pending: Procedures Performed prior 72 hours Category Date Time Status ECG 12 lead ECG [ECG] AM 0600 Y 06/19/17 06:00 Ordered Date of admission: 06/18/17 19:33 [facility] care [facility] Discharging clinician: Alma Rosa Torres Anticipated date of discharge: 06/19/17 - Patient Status Disposition: Home, Self-Care Condition: Good Functional capacity at discharge: independent ambulation Overall status at discharge: patient is progressing back to baseline - Discharge Instructions Follow Up With: [facility] [Primary Care Provider] - (in 1-2 weeks) - Diet and Activity Activity: increase activity as tolerated Diet: diabetic diet, low fat, low cholesterol, low salt diet Hospital course: Mr. Edmonds is a 67 year old male patient with history of COPD and chronic respiratory failure on 3 L home oxygen, CAD, diabetes mellitus type 2 was hospitalized here after sustaining a chest wall injury after fall. He was found to have fractures of his left lateral ribs fifth through seventh. There was associated consolidation in the left lung base suggestive of contusion. He was monitored in the hospital overnight. He has been doing well overall. Pain is well controlled. He remains on 3 L O2 supplementation. No fever or chills. He is clinically stable for discharge home and will follow up with his primary care provider. He will be discharged with a short course of narcotic pain medications for breakthrough pain. - Time Spent with Patient Total time spent providing and/or coordinating discharge services: Less than 30 minutes (20 min) - Constitutional Vitals: Temp Pulse Resp BP Pulse Ox 98.4 F 67 22 128/78 94 06/19/17 06:32 06/19/17 06:32 06/19/17 06:32 06/19/17 06:32 06/19/17 06:32 General appearance: Present: cooperative, A&O X 3, pleasant, no acute distress - Respiratory Respiratory exam: Present: chest wall tenderness (left lateral), CTAB. Absent: accessory muscle use, rales, rhonchi, wheezes - Cardiovascular Cardiovascular exam: Present: RRR, +S1, +S2. Absent: diastolic murmur, gallop, rubs, systolic murmur - GI/Abdominal GI/Abdominal exam: Present: normal bowel sounds, soft, no peritoneal signs. Absent: distended, tenderness - VTE Documentation of Mechanical Device: Intermittent pneumatic compression device
--- NOTE | 2017-06-20 19:30 | Electrocardiograph Report ---
[place] [id number] Test Date: 2017-06-18 Pat Name: Sarabjit Edmonds Department: 103 Room: [facility] Gender: M Inventory Administrator: TMR : 1950 Requested By: Luanne Avila Order Number: [id number] Reading MD: Ethan Hernandez MD Measurements Intervals [place] Rate: 64 P: 25 CA: 173 QRS: 40 QRSD: 146 T: -68 QT: 427 QTc: 436 Interpretive Statements ELECTRONIC VENTRICULAR PACEMAKER Electronically Signed On 06-20-2017 19:28:49 EDT by Ethan Hernandez MD
== END 2017-06-19 10:13 | disposition home or self-care (01) ==
LOC: 3NENU 17:01 → EMEROO 17:01 → SUATTDRO 19:33 → 3NENU 20:05
PROVIDERS: ADMIT Family Medicine; ATTEND Internal Medicine

== ENCOUNTER 2017-07-11 12:56 | Inpatient (IN) ==
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
[2017-07-11] MEDS ORDERED: Vancomycin 1,000 MG in D5% in Water 250 ML IVPB ONE (15:39)
[2017-07-11] MEDS ORDERED: Piperacillin/Tazobactam 3.375 GM in D5% in Water (Mini-Bag+) 100 ML IVPB ONE (15:39)
--- NOTE | 2017-07-11 16:08 | IR Procedure Note ---
Date of procedure: 07/11/17 Consent Obtained: Verbal consent Timeout: Correct patient and procedure verified, Correct site verified, Time out performed, Skin prep completed Local anesthetic: Lidocaine 1% Indications: Large left pleural effusion Procedure Performed: Left thoracentesis Site/Technique: Left lower chest Results/Findings: Still draining serosanguinous pleural fluid Estimated blood loss (cc): 1 Complications: None; Tolerated procedure well Post Procedure Treatment Plan: Monitoring in ER, post procedural cxr
[2017-07-11] MEDS ORDERED: *HR* HYDROmorphone (PF) 1 MG/ML SYRINGE IVP ONE (16:13)
[2017-07-11] MEDS ORDERED: Ondansetron 4 MG/2 ML VIAL IVP ONE (16:13)
[2017-07-11] MEDS ORDERED: Ondansetron 4 MG/2 ML VIAL ONE (16:21)
[2017-07-11] MEDS ORDERED: *HR* HYDROmorphone (PF) 1 MG/ML SYRINGE ONE (16:21)
[2017-07-11 18:08] LABS: RBC,Pleural Fluid 0.124 M/mcL
[2017-07-11] MEDS ORDERED: Ondansetron 4 MG/2 ML VIAL IVP PRN (18:46)
[2017-07-11] MEDS ORDERED: Acetaminophen 325 MG TABLET PO PRN (18:46)
[2017-07-11] MEDS ORDERED: *HR* HYDROcodone/Acet 5/325 mg TABLET PO PRN (18:46)
[2017-07-11] MEDS ORDERED: Naloxone 0.4 MG/ML INJ IVP PRN (18:46)
[2017-07-11] MEDS ORDERED: *HR* HYDROmorphone (PF) 1 MG/ML SYRINGE IVP PRN (18:46)
[2017-07-11] MEDS ORDERED: Dextrose Gel 15 GM PO PRN ×2 (18:49)
[2017-07-11] MEDS ORDERED: D5% in Water 1,000 ML IVC PRN (18:49)
[2017-07-11] MEDS ORDERED: *HR* Dextrose 50 % in Water (Syg) 50 ML SYRINGE IVP PRN (18:49)
[2017-07-11] MEDS ORDERED: Albuterol 2.5 MG/3 ML NEBULIZER IH PRN (18:51)
[2017-07-11 18:54] LABS: Appearance of Pleural Fl Bloody (Clear)
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
[2017-07-11] MEDS: Insulin LISPRO 300 UNITS/3 ML VIAL SQ SCH (20:44)
[2017-07-11] MEDS: Ipratropium/Albuterol Neb 3 ML IH SCH ×2 (20:47→22:57)
[2017-07-11] MEDS: SALMETEROL XINAFOATE 50 MCG IH SCH (20:47)
[2017-07-12] MEDS: Piperacillin/Tazobactam 3.375 GM in D5% in Water (Mini-Bag+) 100 ML IVPB SCH ×2 (01:18→08:23)
[2017-07-12 01:28] LABS: Basophils % 0.2 %; Hematocrit 33.9 % (37.5-50.1); Hemoglobin 10.9 g/dL (12.9-16.9); Immature Granulocytes % 1.8 % (0-4); Lymphocytes # 0.6 K/mcL (0.6-4.6); Lymphocytes % 5.2 %; Mean Corpuscular HGB Conc 32.2 g/dL (31.6-35.5); Mean Corpuscular Hemoglobin 28.2 pg (28.0-33.3); Mean Corpuscular Volume 87.8 fL (83.0-100.0); Mean Platelet Volume 10.9 fL (9.4-12.4); Monocytes % 19.7 %; Neutrophils # 8.3 K/mcL (1.6-8.9); Platelet Count 181 K/mcL (140-400); Red Blood Count 3.86 M/mcL (4.19-5.50); Red Cell Distribution Width 18.8 % (11.5-14.5); Segmented Neutrophils % 73.1 %
[2017-07-12 01:31] LABS: Monocytes # 2.3 K/mcL (0.0-1.3)
[2017-07-12 01:42] LABS: BUN/Creatinine Ratio 21 (6-26); Blood Urea Nitrogen 26 mg/dL (8-26); Calcium 8.8 mg/dL (8.6-10.8); Carbon Dioxide 26 mEq/L (19-29); Chloride 104 mEq/L (98-109); Glucose 208 mg/dL (70-99); Osmolality,Calculated 301 (280-300); Potassium 4.1 mEq/L (3.5-4.5); Sodium 140 mEq/L (136-145); eGFR For African Americans > 60 (> 60); eGFR For Non-African Americans 59 (> 60)
[2017-07-12 02:06] LABS: Anisocytosis 1+ (Not Present); Platelet Estimate Normal (Normal)
[2017-07-12 02:07] LABS: Polychromasia 1+ (Not Present)
[2017-07-12] MEDS ORDERED: Vancomycin 1,750 MG in D5% in Water 500 ML IVPB SCH (04:00)
[2017-07-12] MEDS: Ipratropium/Albuterol Neb 3 ML IH SCH ×5 (04:01→20:22)
[2017-07-12] MEDS ORDERED: *HR* Enoxaparin 40 MG/0.4 ML SYRINGE SQ SCH (06:00)
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
[2017-07-12] MEDS: Tiotropium 18 MCG inhalation IH SCH (07:46)
[2017-07-12] MEDS: Insulin LISPRO 300 UNITS/3 ML VIAL SQ SCH ×4 (08:23→21:36)
[2017-07-12] MEDS: Aspirin 81 MG TAB.CHEW PO SCH (08:23)
[2017-07-12] MEDS: Cholecalciferol (D-3) 1,000 UNIT TABLET PO SCH (08:23)
[2017-07-12] MEDS: Pantoprazole 40 MG VIAL IVP SCH (08:24)
[2017-07-12] MEDS: SALMETEROL XINAFOATE 50 MCG IH SCH ×2 (08:25→21:36)
[2017-07-12] MEDS ORDERED: Aminoglycoside Consult 1 EACH MC ONE (09:34)
[2017-07-12 09:38] LABS: Alanine Aminotransferase 11 Units/L (0-55); Albumin 3.2 g/dL (3.5-5.0); Albumin/Globulin Ratio 0.9 (1.1-2.2); Alkaline Phosphatase 66 Units/L (38-126); Aspartate Amino Transferase 13 Units/L (5-34); BUN/Creatinine Ratio 23 (6-26); Bilirubin,Total 0.4 mg/dL (0.2-1.2); Blood Urea Nitrogen 27 mg/dL (8-26); Calcium 8.8 mg/dL (8.6-10.8); Carbon Dioxide 25 mEq/L (19-29); Chloride 104 mEq/L (98-109); Globulin 3.4 g/dL (2.4-3.5); Glucose 144 mg/dL (70-99); Lactate Dehydrogenase 203 Units/L (159-327); Osmolality,Calculated 300 (280-300); Potassium 3.9 mEq/L (3.5-4.5); Sodium 141 mEq/L (136-145); eGFR For African Americans > 60 (> 60); eGFR For Non-African Americans > 60 (> 60)
[2017-07-12 09:40] LABS: Total Protein 6.6 g/dL (6.0-8.3)
--- NOTE | 2017-07-12 17:30 | Electrocardiograph Report ---
[address] [address] Test Date: 2017-07-11 Pat Name: Sarabjit Edmonds Department: 102 Room: 2NE20 Gender: M Spearer: [place] : 1950 Requested By: Arturo Flynn Order Number: [id number] Reading MD: Bettie Gibbs Measurements Intervals [place] Rate: 67 P: 24 AK: 167 QRS: 104 QRSD: 150 T: -26 QT: 441 QTc: 456 Interpretive Statements VENTRICULAR PACER Electronically Signed On 07-12-2017 17:28:22 EDT by Bettie Gibbs
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
[2017-07-12] MEDS: Budesonide/Formoterol 80/4.5 MDI IH SCH (21:33)
[2017-07-12] MEDS ORDERED: Vancomycin 1,750 MG in D5% in Water 250 ML IVPB SCH (22:00)
[2017-07-13] MEDS: Ipratropium/Albuterol Neb 3 ML IH SCH ×7 (00:10→22:49)
[2017-07-13 06:13] LABS: Basophils # 0.1 K/mcL (0.0-0.2); Basophils % 0.9 %; Eosinophils # 0.1 K/mcL (0.0-0.6); Eosinophils % 0.9 %; Hematocrit 33.7 % (37.5-50.1); Hemoglobin 10.5 g/dL (12.9-16.9); Immature Granulocytes % 2.1 % (0-4); Lymphocytes # 1.5 K/mcL (0.6-4.6); Lymphocytes % 17.7 %; Mean Corpuscular HGB Conc 31.2 g/dL (31.6-35.5); Mean Corpuscular Hemoglobin 27.5 pg (28.0-33.3); Mean Corpuscular Volume 88.2 fL (83.0-100.0); Mean Platelet Volume 10.8 fL (9.4-12.4); Monocytes # 1.5 K/mcL (0.0-1.3); Neutrophils # 5.1 K/mcL (1.6-8.9); Platelet Count 164 K/mcL (140-400); Red Blood Count 3.82 M/mcL (4.19-5.50); Red Cell Distribution Width 18.8 % (11.5-14.5); Segmented Neutrophils % 60.4 %
[2017-07-13 06:31] LABS: BUN/Creatinine Ratio 27 (6-26); Blood Urea Nitrogen 25 mg/dL (8-26); Calcium 8.5 mg/dL (8.6-10.8); Carbon Dioxide 30 mEq/L (19-29); Chloride 105 mEq/L (98-109); Glucose 88 mg/dL (70-99); Osmolality,Calculated 298 (280-300); Potassium 4.1 mEq/L (3.5-4.5); Sodium 142 mEq/L (136-145); eGFR For African Americans > 60 (> 60); eGFR For Non-African Americans > 60 (> 60)
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
[2017-07-13] MEDS: Budesonide/Formoterol 80/4.5 MDI IH SCH ×2 (08:51→19:23)
[2017-07-13] MEDS: Tiotropium 18 MCG inhalation IH SCH (09:00)
[2017-07-13] MEDS: Pantoprazole 40 MG VIAL IVP SCH (09:01)
[2017-07-13] MEDS: Insulin LISPRO 300 UNITS/3 ML VIAL SQ SCH ×4 (09:02→21:08)
[2017-07-13] MEDS: Cholecalciferol (D-3) 1,000 UNIT TABLET PO SCH (09:02)
[2017-07-13] MEDS: Aspirin 81 MG TAB.CHEW PO SCH (09:02)
[2017-07-13] MEDS: SALMETEROL XINAFOATE 50 MCG IH SCH (09:04)
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
[2017-07-13] MEDS ORDERED: Albuterol 2.5 MG/3 ML NEBULIZER IH SCH (16:00)
[2017-07-13] MEDS: MethylPREDNISolone 40 MG/ML VIAL IVP SCH ×2 (17:10→22:27)
[2017-07-14] MEDS: Ipratropium/Albuterol Neb 3 ML IH SCH ×3 (03:54→11:26)
[2017-07-14 04:47] LABS: Hematocrit 35.1 % (37.5-50.1); Hemoglobin 11.1 g/dL (12.9-16.9); Mean Corpuscular HGB Conc 31.6 g/dL (31.6-35.5); Mean Corpuscular Hemoglobin 27.5 pg (28.0-33.3); Mean Corpuscular Volume 87.1 fL (83.0-100.0); Mean Platelet Volume 11.6 fL (9.4-12.4); Platelet Count 194 K/mcL (140-400); Red Blood Count 4.03 M/mcL (4.19-5.50); Red Cell Distribution Width 18.1 % (11.5-14.5)
[2017-07-14 05:04] LABS: BUN/Creatinine Ratio 24 (6-26); Blood Urea Nitrogen 23 mg/dL (8-26); Calcium 8.9 mg/dL (8.6-10.8); Carbon Dioxide 27 mEq/L (19-29); Chloride 105 mEq/L (98-109); Glucose 145 mg/dL (70-99); Osmolality,Calculated 298 (280-300); Potassium 4.4 mEq/L (3.5-4.5); Sodium 141 mEq/L (136-145); eGFR For African Americans > 60 (> 60); eGFR For Non-African Americans > 60 (> 60)
[2017-07-14] MEDS: MethylPREDNISolone 40 MG/ML VIAL IVP SCH (05:40)
[2017-07-14] MEDS: Budesonide/Formoterol 80/4.5 MDI IH SCH (07:54)
[2017-07-14] MEDS: Pantoprazole 40 MG VIAL IVP SCH (07:56)
[2017-07-14] MEDS: Aspirin 81 MG TAB.CHEW PO SCH (07:56)
[2017-07-14] MEDS: Cholecalciferol (D-3) 1,000 UNIT TABLET PO SCH (07:57)
[2017-07-14] MEDS: Insulin LISPRO 300 UNITS/3 ML VIAL SQ SCH ×2 (08:00→12:48)
[2017-07-14 08:01] VITALS: BP 154/93
--- NOTE | 2017-07-14 12:04 | Pulmonology Progress Note ---
Date of Encounter: 07/14/17 Time of Encounter: 12:02 Assessment and Plan (1) Acute and chronic respiratory failure with hypoxia Current Visit: Yes Status: Acute This appears to be multifactorial including underlying COPD heart failure with preserved ejection fraction coronary artery disease and obesity [place] located by obstructive sleep apnea. It is concerning the patient acutely has had significant desaturation with exertion this may and most likely is related to atelectasis splinting collapse and consolidation within the lung however it may be related to venous thromboembolism and CTA has been ordered and is pending which is appropriate. I will follow-up on the results of this if negative patient will likely just need some time for recovery back to baseline. It is concerning to me that he has been so significantly dyspneic as an outpatient and will need further evaluation for this including medical optimization is on a long-acting beta agonist and long-acting muscarinic antagonist which are appropriate for his condition he may need additional therapy which would need to be addressed and discussed as an outpatient (2) COPD (chronic obstructive pulmonary disease) Current Visit: No Status: Chronic Does not appear to have acute exacerbation continue bronchodilators did not see any role for steroids at present he will need outpatient pulmonary follow-up either at the [facility] or at [place] Qualifiers: COPD type: COPD with acute lower respiratory infection Qualified Code(s): J44.0 - Chronic obstructive pulmonary disease with acute lower respiratory infection (3) Rib fractures Current Visit: No Status: Acute Pain is currently controlled Qualifiers: Encounter type: subsequent encounter Rib fracture type: multiple ribs Fracture type: closed Laterality: left Fracture healing: with routine healing Qualified Code(s): S22.42XD - Multiple fractures of ribs, left side, subsequent encounter for fracture with routine healing (4) Pleural effusion, left Current Visit: Yes Status: Acute This appears to be secondary to trauma status post thoracentesis no malignant cells were seen (5) BERNIE on CPAP Current Visit: Yes Status: Chronic Continue positive airway pressure at night and with NAPS Subjective Principal diagnosis: left sided hemothorax Interval history: Mr. Edmonds says that in general he continues to improve although he is still noted to have significant desaturation with ambulation requiring 6-8 L of recovery of supplementary oxygen during times of stress from his baseline of 3L. he denies pain he has been sitting up in the chair and and using incentive spirometry throughout the day Objective PUL Vital signs: Last Vital Signs Temp 97.6 F 11/02/17 08:00 Pulse 60 07/14/17 05:41 Resp 16 07/14/17 08:00 BP 154/93 07/14/17 08:00 Pulse Ox 93 07/14/17 08:00 General appearance: no acute distress ENT: oropharynx moist Auscultation: left: clear, right: diminished breath sounds Cardiovascular: regular rate and rhythm Extremities: no edema normal mental status, non-focal exam mood appropriate Results - Laboratory Findings CBC and BMP: 07/14/17 03:16 07/14/17 03:16 Abnormal lab findings: Abnormal lab results RBC 4.03 M/mcL (4.19-5.50) L 07/14/17 03:16 Hgb 11.1 g/dL (12.9-16.9) L 07/14/17 03:16 Hct 35.1 % (37.5-50.1) L 07/14/17 03:16 MCH 27.5 pg (28.0-33.3) L 07/14/17 03:16 RDW 18.1 % (11.5-14.5) H 07/14/17 03:16 Monocytes # 1.5 K/mcL (0.0-1.3) H 07/13/17 05:27 Polychromasia 1+ (Not Present) A 07/12/17 01:08 Anisocytosis 1+ (Not Present) A 07/12/17 01:08 Glucose 145 mg/dL (70-99) H 07/14/17 03:16 POC Glucose 169 (58-89) H 07/14/17 11:24 Troponin I 0.04 ng/mL (0-0.03) H* 07/12/17 06:47 Albumin 3.2 g/dL (3.5-5.0) L 07/12/17 06:45 Albumin/Globulin Ratio 0.9 (1.1-2.2) L 07/12/17 06:45 Pleural Appearance Bloody (Clear) A 07/11/17 16:00 Pleural RBC 0.124 M/mcL (0.000-0.002) H 07/11/17 16:00 Pleural Tot Nuc Cell 2073 TNC/mcL (0-1000) H 07/11/17 16:00 - Diagnostic Findings Chest x-ray: report reviewed, image reviewed - Clinical Findings Intake & Output: Intake & Output 07/13/17 07/14/17 07/14/17 23:59 07:59 15:59 Intake Total 480 / 480 120 / 120 Balance 480 / 480 120 / 120 Weight 115.4 kg Consult Discharge Plan - Plan Instructions: Heart Failure (DC), Thoracentesis (DC), Seasoning Without Salt ( DC), Seasoning Without Salt (GEN), Diabetes Mellitus Type 2 in Adults (DC), Chronic Obstructive Pulmonary Disease (DC), Low Sodium Diet (DC), Pneumonia (DC) Additional Instructions: Continue continuous home oxygen Start Symbicort Follow up with property insurance agent in 1-2 weeks Return to ED if symptoms return prior to pulmonology visit. Referrals: Fermín Harry MD [Partnered Physician] - (Schedule follow up within 2 weeks. ) [facility] - 07/20/17 10:00 am Prescriptions: Budesonide/Formoterol 80/4.5 [Symbicort 80/4.5] 2 puff IH BIDR #1 inhaler
--- NOTE | 2017-07-14 14:55 | Event Note ---
<Richardson Bolivar - Last Filed: 07/14/17 14:59> Date of Encounter: 07/14/17 Time of Encounter: 14:44 Updated Date of Discharge: 07/14/17 Patient seen and examined. Patient was unable to be discharged yesterday due to exertional hypoxia. Patient had CTA chest revealing small left pleural effusion , reduced from the previous examination and improving airspace disease claim representative of pneumonia in the right middle lobe compared to 04/30/2017. He reports no new complaints overnight. Physical Exam: GENERAL: WN/WD male in NAD HEENT: MMM, oropharynx clear CV: RRR,+S1, +S2, no M/R/G RESP: decreased breath sounds on right, CTA on left GI: Abd soft, NT, positive BS EXTREMITIES: no edema in both lower extremities SKIN: dry, intact, left hip wound without signs of infection, minimal serous drainage on dressing Assessment: 1) Acute and chronic respiratory failure with hypoxia 2) COPD (chronic obstructive pulmonary disease) 3) Rib fractures, left 4) Pleural effusion, left 5) BERNIE on CPAP 6) Type 2 diabetes mellitus 7) Obesity, BMI 39.9 Plan: 1) Rx written for continuous high flow home oxygen to be worn continuously. He has been significantly dyspneic and will need further outpatient pulmonology evaluation for medical optimization. Continue continuous home oxygen. 2) COPD not in acute exacerbation, continue bronchodilators. Start Symbicort. He is on a long-acting beta agonist and long-acting muscarinic antagonist which are appropriate for his condition. He may need additional therapy which would need to be addressed and discussed as an outpatient. 3) Pain is currently controlled 4) This appears to be secondary to trauma status post thoracentesis no malignant cells were seen 5) Continue positive airway pressure at night and with naps 6) Diet modification discussed 7) Follow up with laborer [place] in 1-2 weeks. Return to ED if symptoms return prior to pulmonology visit. Plan discussed with patient and at bedside. All questions were answered. <Oliverio Lind - Last Filed: 07/14/17 18:31> Date of Encounter: 07/14/17 I examined this patient and my medical decision-making was reviewed with the Resident Physician on 07/14/17. I agree with the documented findings, disposition and treatment plan as described except to the extent set forth below. Mr Kendal is doing somewhat better today. Arrangements made for high flow oxygen Exam Alert Comfortable at rest Heart reg Diminished breath sounds Plan as above.
== END 2017-07-14 16:25 | disposition home or self-care (01) | DRG 186 ==
LOC: 2NENU 12:56 → EMEROO 12:56 → 2NENU 17:50 → SUATTDRO 18:46
PROVIDERS: ADMIT Internal Medicine; ATTEND Internal Medicine

== ENCOUNTER 2018-12-20 15:40 | Observation (INO) ==
[2018-12-20] MEDS ORDERED: Dextrose Gel 15 GM/37.5 ML TUBE PO PRN ×2 (19:38)
[2018-12-20] MEDS ORDERED: *HR* Dextrose 50 % in Water (Syg) 50 ML SYRINGE IVP PRN (19:38)
[2018-12-20 20:12] LABS: Hematocrit 24.8 % (37.5-50.1); Hemoglobin 7.7 g/dL (12.9-16.9); Mean Corpuscular Hemoglobin 28.8 pg (28.0-33.3); Mean Corpuscular Volume 92.9 fL (83.0-100.0); Mean Platelet Volume 11.5 fL (9.4-12.4); Nucleated Red Blood Cells 0.4 /100 WBC (0); Platelet Count 214 K/mcL (140-400); Red Blood Count 2.67 M/mcL (4.19-5.50); Red Cell Distribution Width 18.7 % (11.5-14.5)
[2018-12-20 20:21] LABS: Prothrombin Time 11.5 Seconds (9.4-12.1)
[2018-12-20] MEDS ORDERED: Nitroglycerin 0.4 MG TAB.SUBL SL PRN (20:23)
[2018-12-20 20:34] LABS: Alanine Aminotransferase 17 Units/L (7-52); Albumin 3.8 g/dL (3.5-5.7); Alkaline Phosphatase 38 Units/L (34-104); Aspartate Amino Transferase 16 Units/L (13-39); BUN/Creatinine Ratio 36 (6-26); Bilirubin,Direct 0.1 mg/dL (0.0-0.2); Bilirubin,Indirect 0.2 mg/dL (0.0-1.2); Bilirubin,Total 0.3 mg/dL (0.3-1.0); Blood Urea Nitrogen 35 mg/dL (8-23); Calcium 9.2 mg/dL (8.6-10.3); Carbon Dioxide 26 mEq/L (23-29); Chloride 103 mEq/L (98-107); Globulin 1.9 g/dL (2.4-3.5); Glucose 207 mg/dL (70-105); Osmolality,Calculated 304 (280-300); Potassium 4.6 mEq/L (3.5-5.1); Sodium 140 mEq/L (136-145); Total Protein 5.7 g/dL (6.4-8.9); eGFR For Non-African Americans > 60 (> 60)
[2018-12-20 20:45] LABS: Lymphocytes # 0.6 K/mcL (0.6-4.6); Monocytes # 0.6 K/mcL (0.0-1.3); Neutrophils # 9.4 K/mcL (1.6-8.9); Platelet Estimate Normal (Normal)
--- NOTE | 2018-12-20 20:48 | Internal Med History&Physical ---
Date of Encounter: 12/20/18 Time of Encounter: 20:45 Internal Medicine - H&P: HPI Chief complaint: shortness of breath Admitted From: Home Plans for Post Hospital Care: Home History of present illness: Sarabjit Edmonds is a 68-year-old man with coronary artery disease, type 2 diabetes, COPD on chronic supplemental oxygen and heart failure who has been complaining of increasing fatigue and shortness of breath over the past number of weeks feeling as though his oxygen is inadequate and therefore has been increasing the volume. His took him to the [facility] 3 days ago as it was noted that his oximetry was not as high as it once was. Over there he was found to be anemic with a hemoglobin of 6.2 and positive stool occult blood. When asked about a history of GI bleeding he denies noticing any overt blood and says his stool has been dark and tarry but attributes it to his intake of iron. There appears he received 2 or 3 units of blood over the last 2 days with adequate response but subsequently noted to have a drop in hemoglobin again and therefore was transferred here for further GI workup. His last hemoglobin was 8.6 at the [facility] done at 7 AM. My repeat test done here upon arrival is 7.7. He denies any complaints and feels well. He has never had an endoscopy and had a screening colonoscopy about 20 years ago in which she was seen to have polyps that were resected and diverticuli. He denies chest pain, abdominal pain, nausea or vomiting. Past Med Surg Social Fam HX - Past Medical History Medical history: arthritis, COPD, coronary artery disease, diabetes, hyperlipidemia, hypertension, myocardial infarction, peripheral artery disease Psychiatric history: no psych history - Past Surgical History Surgical History: angioplasty/stent Additional surgical history: tonsilectomy - Social History Smoking Status: Never smoker Smokeless Tobacco Status: No Alcohol use: none Drug use: none - Family History Father Adopted: No Family Member Ethnicity: Non- Living Status: Hx Family Cardiac Disorders: No Hx Family Respiratory Disorders: Yes (black lung) Hx Family Cancer: No Hx Family GI Disorders: No Hx Family Endocrine Disorder: No Hx Family Neuromuscular Disorders: No Hx Family Neurologic Disorders: No Hx Family HEENT Disorders: No Hx Family Autoimmune Disorders: No Internal Medicine - H&P: Meds Metoprolol [Lopressor] 50 mg PO BID 05/27/15 [History] Simvastatin [Zocor] 80 mg PO HS 05/27/15 [History] Naproxen [Naprosyn] 500 mg PO BID 08/12/16 [History] Sertraline [Zoloft] 200 mg PO HS 08/12/16 [History] metFORMIN [Glucophage] 500 mg PO BIDWM 08/12/16 [History] Aspirin 81 mg PO DAILY 04/28/17 [History] Cholecalciferol (D-3) [Vitamin D] 1,000 unit PO DAILY 04/28/17 [History] Docusate [Colace] 200 mg PO HS 04/28/17 [History] Ipratropium/Albuterol Neb [Duoneb] 3 ml IH TID PRN 04/28/17 [History] Lisinopril/Hydrochlorothiazide [Zestoretic 10-12.5 mg Tablet] 1 each PO DAILY 04/28/17 [History] Budesonide/Formoterol 80/4.5 [Symbicort 80/4.5] 2 puff IH BIDR #1 inhaler 07/13/17 [Rx] Nitroglycerin [Nitrostat] 0.4 mg SL Q5M PRN 08/18/17 [History] Tiotropium [place] [Spiriva Respimat] 2 puff IH DAILY 08/18/17 [History] Furosemide [Lasix] 20 mg PO DAILY #30 tablet 08/25/17 [Rx] predniSONE [PredniSONE] 10 mg PO DAILY 30 Days tablet 08/25/17 [Rx] Allergy/AdvReac Type Severity Reaction Status Date / Time azithromycin [From Zithromax] Allergy Hives Verified 08/18/17 14:08 All Systems PM: A 10-system review of systems was performed and is negative for pertinent findings except as documented above in the HPI. - Constitutional Vitals: Temp Pulse Resp BP Pulse Ox 97.5 F L 91 18 138/76 90 12/20/18 18:48 12/20/18 18:48 12/20/18 18:48 12/20/18 18:48 12/20/18 18:48 Exam: Vitals: Reviewed General: Obese white male lying comfortably in bed in no acute distress. Skin: Warm and supple. HEENT: Moist mucous membranes. Mild conjunctivae pallor. Neck: No lymphadenopathy. No JVD. No carotid bruits. No palpable thyroid. Chest: Normal thoracic expansion. Normal breath sounds. Clear to auscultation. Heart: Normal S1 & S2; rhythmic. No rubs or murmurs. Abdomen: Protuberant, soft and non-tender to palpation. No peritoneal reaction. Extremities: No clubbing, cyanosis. 2+ pedal edema. No calf tenderness. Normal distal pulses. Neurological: Awake, alert and oriented to person, place and time. No focal deficits. Psych: Affect appropriate. Internal Med - H&P Results - Labs CBC & Chem 7: 12/20/18 19:58 12/20/18 19:58 Labs: Short CBC 12/20/18 Range/Units 19:58 WBC 10.7 (4.3-11.1) K/mcL Hgb 7.7 L (12.9-16.9) g/dL Hct 24.8 L (37.5-50.1) % Plt Count 214 (140-400) K/mcL BMP 12/20/18 19:58 Sodium 140 Potassium 4.6 Chloride 103 Carbon Dioxide 26 BUN 35 H Creatinine 0.96 Glucose 207 H Calcium 9.2 Liver Function 12/20/18 Range/Units 19:58 Total Bilirubin 0.3 (0.3-1.0) mg/dL Direct Bilirubin 0.1 (0.0-0.2) mg/dL AST 16 (13-39) Units/L ALT 17 (7-52) Units/L Alkaline Phosphatase 38 (34-104) Units/L Albumin 3.8 (3.5-5.7) g/dL - Assessment and Plan (1) Anemia Current Visit: Yes Status: Acute Assessment and plan: The patient has developed acute on chronic anemia suspected due to blood loss from the GI tract. Seen to have a drop [facility] 7[facility]7 [facility] Will repeat H/H q6hrs x 2 overnight and if a continued drop is noted will transfuse to a goal of 8g/dl. Will keep NPO past midnight and start PPI BID. Qualifiers: Anemia type: iron deficiency Iron deficiency anemia type: chronic blood loss Qualified Code(s): D50.0 - Iron deficiency anemia secondary to blood loss (chronic) (2) Acute and chronic respiratory failure with hypoxia Current Visit: Yes Status: Acute Assessment and plan: The patient's chronic hypoxia seems to have been worsened by his new onset anemia. He clinically improved with the transfusions given and as expected oxygen carrying capacity better. Will continue supplemental oxygen as needed. (3) CAD (coronary artery disease) Current Visit: Yes Status: Chronic Assessment and plan: Will continue beta lio and statin. Hold aspirin for the time being in the setting of blood loss anemia. Qualifiers: Coronary Disease-Associated Artery/Lesion type: [place] artery [place] vs. transplanted heart: [place] heart Associated angina: without angina Qualified Code(s): I25.10 - Atherosclerotic heart disease of [place] coronary artery without angina pectoris (4) COPD (chronic obstructive pulmonary disease) Current Visit: Yes Status: Chronic Assessment and plan: No clinical signs of acute exacerbation. Will order nebulizer therapy prn. Continue daily long acting inhalers. Qualifiers: COPD type: unspecified COPD Qualified Code(s): J44.9 - Chronic obstructive pulmonary disease, unspecified (5) DVT prophylaxis Current Visit: Yes Status: Acute Assessment and plan: Will place on mechanical prophylaxis for now - Time Spent With Patient Total time spent is greater than 50% in coordination of care (as documented) at patient's floor/unit and/or counseling patient: Greater than 35 minutes
[2018-12-20 20:51] LABS: Estimated Average Glucose 108 mg/dl; Hemoglobin A1C 5.4 %
[2018-12-20] MEDS ORDERED: Ipratropium/Albuterol Neb 3 ML IH PRN (20:55)
[2018-12-20] MEDS: Budesonide/Formoterol 80/4.5 MDI IH SCH (22:27)
[2018-12-20] MEDS: Pantoprazole 40 MG VIAL IVP SCH (23:36)
[2018-12-21 02:28] LABS: Hematocrit 26.3 % (37.5-50.1); Hemoglobin 8.1 g/dL (12.9-16.9)
[2018-12-21] MEDS: Insulin LISPRO 300 UNITS/3 ML VIAL SQ SCH ×4 (05:15→17:37)
[2018-12-21] MEDS: Tiotropium 18 MCG inhalation IH SCH (07:35)
[2018-12-21] MEDS: Budesonide/Formoterol 80/4.5 MDI IH SCH ×2 (07:35→21:12)
--- NOTE | 2018-12-21 07:41 | Internal Med Progress Note ---
<Regine Andres - Last Filed: 12/21/18 13:11> Hospitalist Progress Note - Encounter Date of Encounter: 12/21/18 Time of Encounter: 08:55 - Subjective Interval History: Pt sitting in chair, awake and alert. Pt reports his breathing has improved since he received the 3 units of blood at the [facility]. Pt does have dark BM daily, however he is also on an Fe supplement. Pt denies epistaxis, hemoptysis, hematuria, hememetsis. - Exam Vitals: Temp Pulse Resp BP Pulse Ox 97.3 F L 66 18 124/72 92 12/21/18 04:20 12/21/18 04:20 12/21/18 04:20 12/21/18 04:20 12/21/18 04:20 Exam: General: Obese white male sitting comfortably in chair in no acute distress. HEENT: Moist mucous membranes. Mild conjunctivae pallor. Chest: CTAB no wheezes, rales. Heart: Normal S1 & S2; rhythmic. No rubs or murmurs. Abdomen: Protuberant, soft and non-tender to palpation. No peritoneal reaction. Extremities: No clubbing, cyanosis. 2+ pedal edema. No calf tenderness. Neurological: Awake, alert and oriented to person, place and time. No focal deficits. - Assessment and Plan (1) Anemia Current Visit: Yes Status: Acute Assessment and Plan: Likely 2/2 GIB. Pt H/H 8.1/26.3 this AM. Pt has never had an EGD and had one colonscopy many years ago. Pt denies NSAID use. Continue h/h q6. GI to consult for EGD/Colonscopy (2) Acute and chronic respiratory failure with hypoxia Current Visit: Yes Status: Acute Assessment and Plan: Pt usually on 6 L NC at home. Current o2 is 92% on 6 L. Continue monitor and supplemental o2 (3) CAD (coronary artery disease) Current Visit: Yes Status: Chronic Assessment and Plan: Continue BB and statin Hold 81 ASA (4) COPD (chronic obstructive pulmonary disease) Current Visit: Yes Status: Chronic Assessment and Plan: Stable, continue daily inhalers and neb tx PRN DVT Prophylaxis: SCDs - Time Spent with Patient Total time spent is greater than 50% in coordination of care (as documented) at patient's floor/unit and/or counseling patient: Internal Medicine: Result - Labs CBC & Chem 7: 12/21/18 02:09 12/20/18 19:58 Labs: Short CBC 12/20/18 12/21/18 Range/Units 19:58 02:09 WBC 10.7 (4.3-11.1) K/mcL Hgb 7.7 L 8.1 L (12.9-16.9) g/dL Hct 24.8 L 26.3 L (37.5-50.1) % Plt Count 214 (140-400) K/mcL Neutrophils # 9.4 H (1.6-8.9) K/mcL BMP 12/20/18 19:58 Sodium 140 Potassium 4.6 Chloride 103 Carbon Dioxide 26 BUN 35 H Creatinine 0.96 Glucose 207 H Calcium 9.2 Liver Function 12/20/18 Range/Units 19:58 Total Bilirubin 0.3 (0.3-1.0) mg/dL Direct Bilirubin 0.1 (0.0-0.2) mg/dL AST 16 (13-39) Units/L ALT 17 (7-52) Units/L Alkaline Phosphatase 38 (34-104) Units/L Albumin 3.8 (3.5-5.7) g/dL - ABG Interpretation ABG results: PT/INR, D-dimer PT 11.5 Seconds (9.4-12.1) 12/20/18 19:58 Consult Discharge Plan - Plan [facility]errals: [facility] Provider[facility] - <Chelle Joshi - Last Filed: 12/21/18 18:33> Hospitalist Progress Note - Encounter Date of Encounter: 12/21/18 - Exam Vitals: Temp Pulse Resp BP Pulse Ox 98.2 F 67 15 106/56 92 12/21/18 15:22 12/21/18 15:22 12/21/18 15:22 12/21/18 15:22 12/21/18 15:22 - Assessment and Plan (1) CAD (coronary artery disease) Current Visit: Yes Status: Chronic (2) DVT prophylaxis Current Visit: Yes Status: Acute (3) COPD (chronic obstructive pulmonary disease) Current Visit: Yes Status: Chronic (4) Acute and chronic respiratory failure with hypoxia Current Visit: Yes Status: Acute (5) Anemia Current Visit: Yes Status: Acute - Time Spent with Patient Total time spent is greater than 50% in coordination of care (as documented) at patient's floor/unit and/or counseling patient: Internal Medicine: Result - Labs CBC & Chem 7: 12/21/18 12:23 12/20/18 19:58 Labs: Short CBC 12/20/18 12/21/18 12/21/18 Range/Units 19:58 02:09 09:22 WBC 10.7 (4.3-11.1) K/mcL Hgb 7.7 L 8.1 L 8.1 L (12.9-16.9) g/dL Hct 24.8 L 26.3 L 26.5 L (37.5-50.1) % Plt Count 214 (140-400) K/mcL Neutrophils # 9.4 H (1.6-8.9) K/mcL 12/21/18 Range/Units 12:23 WBC (4.3-11.1) K/mcL Hgb 8.7 L (12.9-16.9) g/dL Hct 28.5 L (37.5-50.1) % Plt Count (140-400) K/mcL Neutrophils # (1.6-8.9) K/mcL BMP 12/20/18 19:58 Sodium 140 Potassium 4.6 Chloride 103 Carbon Dioxide 26 BUN 35 H Creatinine 0.96 Glucose 207 H Calcium 9.2 Liver Function 12/20/18 Range/Units 19:58 Total Bilirubin 0.3 (0.3-1.0) mg/dL Direct Bilirubin 0.1 (0.0-0.2) mg/dL AST 16 (13-39) Units/L ALT 17 (7-52) Units/L Alkaline Phosphatase 38 (34-104) Units/L Albumin 3.8 (3.5-5.7) g/dL - ABG Interpretation ABG results: PT/INR, D-dimer PT 11.5 Seconds (9.4-12.1) 12/20/18 19:58 - Attending Attestation I examined this patient and my medical decision-making was reviewed with the Medical Student and Resident Physician. I agree with the documented findings, disposition and treatment plan as described except to the extent set forth below. No complaints. SOB improved after transfusion. VS: reviewed, stable, physical exam: no acute distress, cooperative, course breath sounds throughout, skin warm/dry. Labs: reviewed: H&H stable. Await GI evaluation/EGD. <Regine Andres - Last Filed: 12/21/18 13:11> (1) Anemia Qualifiers: Anemia type: iron deficiency Iron deficiency anemia type: chronic blood loss Qualified Code(s): D50.0 - Iron deficiency anemia secondary to blood loss (chronic) (3) CAD (coronary artery disease) Qualifiers: Coronary Disease-Associated Artery/Lesion type: [place] artery [place] vs. transplanted heart: [place] heart Associated angina: without angina Qualified Code(s): I25.10 - Atherosclerotic heart disease of [place] coronary artery without angina pectoris (4) COPD (chronic obstructive pulmonary disease) Qualifiers: COPD type: unspecified COPD Qualified Code(s): J44.9 - Chronic obstructive pulmonary disease, unspecified <DeepciaracandyChelle - Last Filed: 12/21/18 18:33> (1) CAD (coronary artery disease) Qualifiers: Coronary Disease-Associated Artery/Lesion type: [place] artery [place] vs. transplanted heart: [place] heart Associated angina: without angina Qualified Code(s): I25.10 - Atherosclerotic heart disease of [place] coronary artery without angina pectoris (3) COPD (chronic obstructive pulmonary disease) Qualifiers: COPD type: unspecified COPD Qualified Code(s): J44.9 - Chronic obstructive pulmonary disease, unspecified (5) Anemia Qualifiers: Anemia type: iron deficiency Iron deficiency anemia type: chronic blood loss Qualified Code(s): D50.0 - Iron deficiency anemia secondary to blood loss (chronic)
[2018-12-21] MEDS: Furosemide 20 MG TABLET PO SCH (08:27)
[2018-12-21] MEDS: Pantoprazole 40 MG VIAL IVP SCH ×2 (08:27→23:01)
[2018-12-21] MEDS: Cholecalciferol (D-3) 1,000 UNIT TABLET PO SCH (08:27)
[2018-12-21 10:07] LABS: Hematocrit 26.5 % (37.5-50.1); Hemoglobin 8.1 g/dL (12.9-16.9)
[2018-12-21] MEDS ORDERED: Lidocaine -MPF 2% 2 ML VIAL ONE (12:32)
[2018-12-21] MEDS ORDERED: *HR* Propofol 200 MG/20 ML VIAL IVP ONE (12:32)
[2018-12-21] MEDS: predniSONE 20 MG TABLET PO SCH (12:46)
[2018-12-21 13:02] LABS: Hematocrit 28.5 % (37.5-50.1); Hemoglobin 8.7 g/dL (12.9-16.9)
--- NOTE | 2018-12-21 13:20 | Anesthesia Evaluation PreOp ---
Date of Encounter: 12/21/18 Time of Encounter: 13:18 - Past History Planned Operation: EGD Cardiac History: ME, CHF, HTN, Hyperlipidemia, Cardiac Stent, Pacemaker/ICD (Dual chamber pacermaker), Other (CAD. PVDz w/B-moderate carotid stenosis) Pulmonary History: COPD (hospitalized this admission with increased SOB/COPD exacerbation worsened by Anemia), BERNIE Dx, Other (Hx Pulm Mass) [employer] History: Other (Anxiety/Depression) Other Medical History: Diabetes Type II, Other (MO/BMI = 40) Anesthesia History: No Prior Anesthetic Complications, Past Anesthesia Alcohol Use: none Drug use: none Medications and Allergies Metoprolol [Lopressor] 50 mg PO BID 05/27/15 [History] Simvastatin [Zocor] 80 mg PO HS 05/27/15 [History] Sertraline [Zoloft] 200 mg PO HS 08/12/16 [History] metFORMIN [Glucophage] 1,000 mg PO BIDWM 08/12/16 [History] Aspirin 81 mg PO DAILY 04/28/17 [History] Cholecalciferol (D-3) [Vitamin D] 1,000 unit PO DAILY 04/28/17 [History] Docusate [Colace] 200 mg PO DAILY PRN 04/28/17 [History] Ipratropium/Albuterol Neb [Duoneb] 3 ml IH TID PRN 04/28/17 [History] Budesonide/Formoterol 80/4.5 [Symbicort 80/4.5] 2 puff IH BIDR #1 inhaler 07/13/17 [Rx] Tiotropium [place] [Spiriva Respimat] 2 puff IH DAILY 08/18/17 [History] Albuterol Neb [Proventil Neb] 2.5 mg IH Q6H PRN 12/21/18 [History] Albuterol Sulfate [Albuterol Inhaler] 2 puff PO Q4H PRN 12/21/18 [History] Baclofen 5 mg PO BID 12/21/18 [History] Chlorhexidine Rinse 15 ml PO BID 12/21/18 [History] Ferrous Sulfate [Iron] 325 mg PO DAILY 12/21/18 [History] Gabapentin [Neurontin] 100 mg PO QID 12/21/18 [History] Losartan [Cozaar] 25 mg PO DAILY 12/21/18 [History] Magnesium Oxide [Mag-Oxide Magnesium] 400 mg PO BID 12/21/18 [History] Montelukast [Singulair] 10 mg PO DAILY 12/21/18 [History] Pantoprazole Sodium [Protonix] 40 mg PO DAILY 12/21/18 [History] Polyvinyl Alcohol [Artificial Tears] 1 drop BOTH EYES TID 12/21/18 [History] Potassium Chloride [Klor-Con 10] 20 meq PO DAILY 12/21/18 [History] Roflumilast [Daliresp] 500 mcg PO DAILY 12/21/18 [History] Torsemide [Demadex] 20 mg PO BID 12/21/18 [History] predniSONE [PredniSONE] 60 mg PO DAILY 12/21/18 [History] Allergy/AdvReac Type Severity Reaction Status Date / Time azithromycin [From Zithromax] Allergy Hives Verified 08/18/17 14:08 - Meds/Allergy Pre-op Review Medications Reviewed: Yes Allergies Reviewed: Yes Beta Blockers on Current Med List: Yes (Metoprolol) If Beta Blockers taken, Date/Time (Last Dose taken): 12/21/2018 @ 0826 Anesthesia Results - Labs 12/21/18 12:23 12/20/18 19:58 Laboratory Results - Imaging EKG: report reviewed (71bpm - ELECTRONIC VENTRICULAR PACEMAKER ABNORMAL RHYTHM ECG WARNING: DATA QUALITY MAY AFFECT INTERPRETATION Electronically Signed On 08-19-2017 7:35:37 EST by Janet Heath DO) Additional studies: ECHO 10/11/2018 EV/EV echocardiogram w enhance Impressions: Technically sub-optimal due to poor echocardiographic windows. LVEF 55%. Normal LV chamber size. Mild to moderate concentric left ventricular hypertrophy. Grossly, the basal inferior and inferolateral segments appear hypokinetic. Mild left ventricular diastolic dysfunction. Atypical septal motion consistent with paced rhythm. Grossly, mildly dilated right ventricle with normal appearing function. Suboptimal image quality, but no obvious evidence of a PFO with agitated saline contrast. No evidence of pulmonary hypertension identified. A device lead was visualized in the right atrium and right ventricle. Left Ventricular Wall Motion: Rest Echo Findings The basal inferior and basal inferior lateral costa were hypokinetic. All other wall segments showed normal motion. Anesthesia Exam Vital Signs Temp Pulse Resp BP Pulse Ox 12/21/18 11:19 98.3 F 69 15 123/69 90 12/21/18 07:44 98.3 F 95 14 147/81 92 12/21/18 07:35 16 93 12/21/18 04:20 97.3 F L 66 18 124/72 92 12/21/18 00:26 98.2 F 75 18 123/67 98 12/20/18 23:49 17 93 12/20/18 22:30 18 89 12/20/18 18:48 97.5 F L 91 18 138/76 90 Intake and Output 12/20/18 12/21/18 12/21/18 23:59 07:59 15:59 Intake Total 0 / 0 0 / 0 Output Total 0 / 0 900 / 900 800 / 800 Balance 0 / 0 -900 / -900 -800 / -800 Intake: Oral 0 / 0 0 / 0 Output: Urine 0 / 0 900 / 900 800 / 800 Other: # Voids 3 # Bowel Movements 3 Weight 117 kg Blood Glucose* 137 140 Height: 5'7" Weight: 257# BMI = 40.4 NPO (# of Hours): MNoc - HEENT Pupil (Motor): Pupils equal, EOMI Mallampati: III Teeth: Missing, Poor dentition Oral Opening: Greater than 3 - [employer] LOC: Oriented [employer] Motor: Normal RUE, Normal LUE, Normal RLE, Normal LLE, Normal Face [employer] Sensory: Normal: RUE, LUE, RLE, LLE, Face - Cardiac Rhythm: Regular Murmur: None - Pulmonary Breath Sounds: bilateral Clear (mostly clear, faint expiratory wheezes) Respiratory Effort: Symmetrical Anesthesia Assess/Plan ASA Score: 4 Level of consciousness: Cooperative, Oriented, Tranquil Anesthetic Plan: MAC Monitoring Plan: Standard Monitors Recovery Plan: Other Anes Supervising Prov Stmt: PT seen/evaluated, R&B Discussed, questions answered and consent obtained. Do Wilhelm MD
[2018-12-21] MEDS ORDERED: Albuterol 2.5 MG/3 ML NEBULIZER ONE (13:36)
[2018-12-21] MEDS ORDERED: Tetracaine/Benzocaine/Butamben 1 SPRAY AEROSOL MM ONE (13:50)
[2018-12-21] MEDS ORDERED: 0.9 % Sodium Chloride 1,000 ML IVC SCH (14:00)
--- NOTE | 2018-12-21 16:19 | Gastroenterology Consult Note ---
Date of Encounter: 12/21/18 Time of Encounter: 11:10 - Assessment and plan (1) Anemia Current Visit: Yes Status: Acute Assessment and plan: Hgb 6.2 at [place]. On arrival here, Hgb 7.7, and this AM Hgb 8.1. Continue to monitor CBC and transfuse PRBC as needed. Plan for EGD today to r/o esophagitis, gastritis, duodenitis, PUD, MW tear, or AVM. Continue PPI. Qualifiers: Anemia type: iron deficiency Iron deficiency anemia type: chronic blood loss Qualified Code(s): D50.0 - Iron deficiency anemia secondary to blood loss (chronic) (2) Melena Current Visit: Yes Status: Acute Assessment and plan: Plan for EGD today. - Time Spent With Patient Total time spent is greater than 50% in coordination of care (as documented) at patient's floor/unit and/or counseling patient: GI History of Present Illness - Data of Consult Patient: new to practice Consult date: 12/21/18 Requesting Physician: Chelle Joshi MD - Consult Narrative Reason for consult: Anemia History of present illness: Mr. Edmonds is a 68 year old male with PMHx of COPD on chronic supplemental oxygen, CAD, DM, HLD, HTN, CA, who presented to the [place] with complaints of fat igue and shortness of breath. He was transferred to [place] due to anemia with Hgb 6.2 and positive fecal occult blood test. He denies any BRBPR but does report dark, tarry stools, which he attributes to his iron supplement. Hgb on arrival 7.7 and this AM Hgb 8.1. He denies fever, chills, chest pain, abdominal pain, nausea, vomiting, or hematochezia. Procedures: Colonoscopy 20 years ago with polyps and diverticulosis, per patient report. NSAIDs: ASA Anticoagulation: None Past Med Surg Social Fam HX - Past Medical History Medical history: arthritis, COPD, coronary artery disease, diabetes, hyperlipidemia, hypertension, myocardial infarction, peripheral artery disease Psychiatric history: no psych history - Past Surgical History Surgical History: angioplasty/stent Additional surgical history: tonsilectomy - Social History Smoking Status: Never smoker Smokeless Tobacco Status: No Alcohol use: none Drug use: none - Family History Father Adopted: No Family Member Ethnicity: Non- Living Status: Hx Family Cardiac Disorders: No Hx Family Respiratory Disorders: Yes (black lung) Hx Family Cancer: No Hx Family GI Disorders: No Hx Family Endocrine Disorder: No Hx Family Neuromuscular Disorders: No Hx Family Neurologic Disorders: No Hx Family HEENT Disorders: No Hx Family Autoimmune Disorders: No - Gastrointestinal Gastrointestinal: Present: as per HPI - Constitutional Constitutional: as per HPI - EENT Eyes: as per HPI Ears: Present: as per HPI Nose, mouth and throat: Present: as per HPI - Cardiovascular Cardiovascular ROS: Present: as per HPI - Respiratory Respiratory IM: Present: as per HPI - Genitourinary Genitourinary: Absent: change in color, Urinary frequency - Neurological ROS Neurological GI: Present: as per HPI - Hematologic/Lymphatic Hematologic/Lymphatic pediatric: Present: as per HPI - Musculoskeletal Musculoskeletal ROS GI: Present: as per HPI - Integumentary Integumentary GI: Present: as per HPI - Psychiatric ROS Psychiatric GI: Present: as per HPI - Endocrine Endocrine IM: Present: as per HPI - Constitutional Vitals: Temp Pulse Resp BP Pulse Ox 98.2 F 67 15 106/56 92 12/21/18 15:22 12/21/18 15:22 12/21/18 15:22 12/21/18 15:22 12/21/18 15:22 General appearance: Present: cooperative, A&O X 3, no acute distress, answers questions appropriately - Head Head exam: Present: atraumatic, normocephalic - Eye Eye exam: Present: normal appearance, sclera anicteric - ENT ENT exam: Present: mucous membranes dry - Neck Neck exam general surgery: Present: normal inspection, trachea midline - Respiratory Respiratory exam: Present: CTAB. Absent: rales, rhonchi, wheezes - Cardiovascular Cardiovascular exam: Present: RRR, +S1, +S2 - GI/Abdominal GI/Abdominal exam: Present: soft, no peritoneal signs. Absent: distended, firm, guarding, tenderness - Rectal Rectal exam: Present: deferred - Extremities Exam Extremities exam: Present: warm - Neurological Exam Neurological exam: Present: no focal deficits - Psychiatric Psychiatric exam: Present: normal affect, normal mood - Skin Skin exam: Present: dry, intact, normal color, warm Results - Labs CBC & Chem 7: 12/21/18 12:23 12/20/18 19:58 Labs: Last Result Calcium 9.2 mg/dL (8.6-10.3) 12/20/18 19:58 Entire Visit Hgb 8.7 g/dL (12.9-16.9) L 12/21/18 12:23 Hct 28.5 % (37.5-50.1) L 12/21/18 12:23 PT 11.5 Seconds (9.4-12.1) 12/20/18 19:58 Total Bilirubin 0.3 mg/dL (0.3-1.0) 12/20/18 19:58 AST 16 Units/L (13-39) 12/20/18 19:58 ALT 17 Units/L (7-52) 12/20/18 19:58 - ABG ABG results: PT/INR, D-dimer PT 11.5 Seconds (9.4-12.1) 12/20/18 19:58 Consult Discharge Plan - Plan [facility]errals: [facility] Care Provider[facility] -
[2018-12-21 18:45] LABS: Hematocrit 29.8 % (37.5-50.1); Hemoglobin 9.1 g/dL (12.9-16.9)
[2018-12-21] MEDS ORDERED: D5% in Water 1,000 ML IVC PRN (20:27)
[2018-12-21] MEDS ORDERED: Insulin DETEMIR 100 UNIT/ML X5UNITS SQ SCH (21:00)
[2018-12-21] MEDS ORDERED: Insulin LISPRO 300 UNITS/3 ML VIAL SQ SCH (21:00)
[2018-12-22 00:25] LABS: Hematocrit 25.4 % (37.5-50.1); Hemoglobin 7.7 g/dL (12.9-16.9)
[2018-12-22] MEDS: Insulin LISPRO 300 UNITS/3 ML VIAL SQ SCH ×2 (08:12→12:22)
[2018-12-22 08:19] LABS: Hematocrit 28.6 % (37.5-50.1); Hemoglobin 8.5 g/dL (12.9-16.9)
[2018-12-22 08:41] LABS: BUN/Creatinine Ratio 29 (6-26); Blood Urea Nitrogen 32 mg/dL (8-23); Calcium 9.1 mg/dL (8.6-10.3); Carbon Dioxide 31 mEq/L (23-29); Chloride 103 mEq/L (98-107); Glucose 107 mg/dL (70-105); Osmolality,Calculated 305 (280-300); Potassium 4.4 mEq/L (3.5-5.1); Sodium 144 mEq/L (136-145); eGFR For Non-African Americans > 60 (> 60)
--- NOTE | 2018-12-22 08:59 | Internal Med Progress Note ---
<Regine Andres - Last Filed: 12/22/18 11:50> Hospitalist Progress Note - Encounter Date of Encounter: 12/22/18 Time of Encounter: 08:55 - Subjective Interval History: Pt sitting up eating breakfast. Has no complaints at this time. Pt would like to go home. Denies SOB, CP, abdominal pain. - Exam Vitals: Temp Pulse Resp BP Pulse Ox 97.6 F 56 17 125/76 97 12/22/18 07:54 12/22/18 07:54 12/22/18 07:54 12/22/18 07:54 12/22/18 07:54 Exam: General: Obese white male sitting comfortably in chair in no acute distress. HEENT: Moist mucous membranes. Chest: CTAB no wheezes, rales. Heart: Normal S1 & S2; rhythmic. No rubs or murmurs. Abdomen: Protuberant, soft and non-tender to palpation. No peritoneal reaction. Extremities: No clubbing, cyanosis. 1+ pedal edema. No calf tenderness. Neurological: Awake, alert and oriented to person, place and time. No focal deficits. - Assessment and Plan (1) Anemia Status: Acute Assessment and Plan: Likely 2/2 GIB. Pt H/H 7.7/25.5 this am. Repeat at 0745 was 8.5 GI EGD yesterday showed no obvious source of bleeding. Will get a repeat H/H. Provide IV Fe. (2) Acute and chronic respiratory failure with hypoxia Status: Acute Assessment and Plan: Pt usually on 6 L NC at home. Current o2 is 94% on 6 L. Pt denies any SOB Continue monitor and supplemental o2 (3) CAD (coronary artery disease) Status: Chronic Assessment and Plan: Continue BB and statin Hold 81 ASA (4) COPD (chronic obstructive pulmonary disease) Status: Chronic Assessment and Plan: Stable, continue daily inhalers and neb tx PRN DVT Prophylaxis: SCDs - Time Spent with Patient Total time spent is greater than 50% in coordination of care (as documented) at patient's floor/unit and/or counseling patient: Internal Medicine: Result - Labs CBC & Chem 7: 12/22/18 07:49 12/22/18 07:49 Labs: Short CBC 12/21/18 12/21/18 12/21/18 Range/Units 09:22 12:23 17:59 Hgb 8.1 L 8.7 L 9.1 L (12.9-16.9) g/dL Hct 26.5 L 28.5 L 29.8 L (37.5-50.1) % 12/22/18 12/22/18 Range/Units 00:02 07:49 Hgb 7.7 L 8.5 L (12.9-16.9) g/dL Hct 25.4 L 28.6 L (37.5-50.1) % BMP 12/22/18 07:49 Sodium 144 Potassium 4.4 Chloride 103 Carbon Dioxide 31 H BUN 32 H Creatinine 1.09 Glucose 107 H Calcium 9.1 - ABG Interpretation ABG results: PT/INR, D-dimer PT 11.5 Seconds (9.4-12.1) 12/20/18 19:58 Consult Discharge Plan - Plan Instructions: Acute Respiratory Distress Syndrome (DC), Anemia (GEN) Referrals: Ayaz Armando MD [Partnered Physician] - (web-requested, the office will call the patient to schedule a follow up appointment. ) [facility] Care Provider[facility] - Prescriptions: Furosemide [Lasix] 20 mg PO DAILY 30 Days #30 tablet Lisinopril/Hydrochlorothiazide [Zestoretic 10-12.5 mg Tablet] 1 each PO DAILY 30 Days #30 tablet Nitroglycerin 0.4 mg SL PRN PRN 30 Days #30 tab.subl PRN Reason: Chest Pain Pantoprazole Sodium [Protonix] 40 mg PO BID 30 Days #60 <Chelle Joshi - Last Filed: 12/22/18 17:54> Hospitalist Progress Note - Encounter Date of Encounter: 12/22/18 - Exam Vitals: Temp Pulse Resp BP Pulse Ox 97.4 F L 70 17 109/63 91 12/22/18 15:24 12/22/18 15:24 12/22/18 15:24 12/22/18 15:24 12/22/18 15:24 - Assessment and Plan (1) CAD (coronary artery disease) Status: Chronic (2) DVT prophylaxis Status: Acute (3) COPD (chronic obstructive pulmonary disease) Status: Chronic (4) Acute and chronic respiratory failure with hypoxia Status: Acute (5) Anemia Status: Acute - Time Spent with Patient Total time spent is greater than 50% in coordination of care (as documented) at patient's floor/unit and/or counseling patient: Internal Medicine: Result - Labs CBC & Chem 7: 12/22/18 11:54 12/22/18 07:49 Labs: Short CBC 12/21/18 12/22/18 12/22/18 Range/Units 17:59 00:02 07:49 Hgb 9.1 L 7.7 L 8.5 L (12.9-16.9) g/dL Hct 29.8 L 25.4 L 28.6 L (37.5-50.1) % 12/22/18 Range/Units 11:54 Hgb 8.8 L (12.9-16.9) g/dL Hct 28.6 L (37.5-50.1) % BMP 12/22/18 07:49 Sodium 144 Potassium 4.4 Chloride 103 Carbon Dioxide 31 H BUN 32 H Creatinine 1.09 Glucose 107 H Calcium 9.1 - ABG Interpretation ABG results: PT/INR, D-dimer PT 11.5 Seconds (9.4-12.1) 12/20/18 19:58 - Attending Attestation I examined this patient and my medical decision-making was reviewed with the Resident Physician and Medical Student. I agree with the documented findings, disposition and treatment plan as described except to the extent set forth below. Please see discharge summary done today. <Chelle Joshi - Last Filed: 12/22/18 17:54> (1) CAD (coronary artery disease) Qualifiers: Coronary Disease-Associated Artery/Lesion type: [place] artery [place] vs. transplanted heart: [place] heart Associated angina: without angina Qualified Code(s): I25.10 - Atherosclerotic heart disease of [place] coronary artery without angina pectoris (3) COPD (chronic obstructive pulmonary disease) Qualifiers: COPD type: unspecified COPD Qualified Code(s): J44.9 - Chronic obstructive pulmonary disease, unspecified (5) Anemia Qualifiers: Anemia type: iron deficiency Iron deficiency anemia type: chronic blood loss Qualified Code(s): D50.0 - Iron deficiency anemia secondary to blood loss (chronic)
[2018-12-22] MEDS: predniSONE 20 MG TABLET PO SCH (09:34)
[2018-12-22] MEDS: Furosemide 20 MG TABLET PO SCH (09:34)
[2018-12-22] MEDS: Cholecalciferol (D-3) 1,000 UNIT TABLET PO SCH (09:34)
[2018-12-22] MEDS: Pantoprazole 40 MG VIAL IVP SCH (09:35)
[2018-12-22] MEDS: Budesonide/Formoterol 80/4.5 MDI IH SCH (09:59)
[2018-12-22] MEDS: Tiotropium 18 MCG inhalation IH SCH (10:00)
[2018-12-22] MEDS ORDERED: Tiotropium 18 MCG inhalation IH SCH (10:15)
--- NOTE | 2018-12-22 10:31 | Discharge Summary ---
<Ky Lane S - Last Filed: 12/22/18 13:20> - NOTES TO OUTPATIENT PROVIDER Notes to Outpatient Provider: Follow up with PCP in 1 wk, refill for protonix, hctz/lorsartan, nitro, lasix . Follow up with GI for outpatient evaluation for colonoscopy in 2 weeks. Orders not resulted at time of discharge: Pending orders 12/20/18 19:38 Occult Blood,Stool [BF] Stat Date of Encounter: 12/22/18 Time of Encounter: 10:29 - Discharge Diagnosis (1) GI bleed Priority: Primary Status: Acute Qualifiers: GI bleed type/associated pathology: unspecified gastrointestinal hemorrhage type Qualified Code(s): K92.2 - Gastrointestinal hemorrhage, unspecified (2) Obesity (BMI 30-39.9) Priority: Secondary Status: Chronic (3) Sleep apnea in adult Priority: Secondary Status: Chronic (4) COPD (chronic obstructive pulmonary disease) Priority: Secondary Status: Chronic Qualifiers: COPD type: emphysema Emphysema type: panlobular Qualified Code(s): J43.1 - Panlobular emphysema (5) CAD (coronary artery disease) Priority: Secondary Status: Chronic Qualifiers: Coronary Disease-Associated Artery/Lesion type: [place] artery [place] vs. transplanted heart: [place] heart Associated angina: without angina Qualified Code(s): I25.10 - Atherosclerotic heart disease of [place] coronary artery without angina pectoris (6) Type 2 diabetes mellitus Priority: Secondary Status: Chronic Qualifiers: Diabetes mellitus jail insulin use: without roasterman use Diabetes mellitus complication status: without complication Qualified Code(s): E11.9 - Type 2 diabetes mellitus without complications (7) DVT prophylaxis Priority: Secondary Status: Acute (8) Anemia Priority: Secondary Status: Acute Qualifiers: Anemia type: iron deficiency Iron deficiency anemia type: chronic blood loss Qualified Code(s): D50.0 - Iron deficiency anemia secondary to blood loss (chronic) (9) Melena Priority: Secondary Status: Acute (10) Chronic respiratory failure Priority: Secondary Status: Chronic Qualifiers: Respiratory failure complication: hypoxia Qualified Code(s): J96.11 - Chronic respiratory failure with hypoxia Hospital course: Mr. Edmonds is a 68 year old male with a PMH of coronary artery disease, type 2 diabetes, COPD on chronic 6L supplemental oxygen and heart failure who has been complaining of increasing fatigue and shortness of breath. He went to the [facility] and it was noted that his hemoglobin was 6.2 and had (+) FOBT, he was given 3 U of pRBC. He has noticed increasing tarry stools and sticky stools, however, attributed this to iron pills. He went back to the [facility] and his last hemoglobin was 8.6 at the [facility] done at 7 AM on 12/20/18. Initial Hgb at [facility] was 7.7. He has never had an endoscopy and had a screening colonoscopy about 20 years ago in which she was seen to have polyps that were resected and diverticuli. He was seen by GI during his hospital stay and had EGD yesterday. EGD did show edema, gastritis without any active bleeding or stigmata of recent bleeding. He desaturated after the procedure but quickly recovered. Outpatient colonoscopy recommended. Will give the pt IV iron this morning. Re-check hemoglobin was stable and pt is looking forward to going home. Spoke with Isidro Leal [employer] who states to give the pt protonix BID and have him follow up with GI in 2-3wks to discuss outpatient colonoscopy. Discharge discussed with: patient, nurse Time spent discussing smoking cessation with patient: 3 to 10 minutes - Time Spent with Patient Total time spent providing and/or coordinating discharge services: Time spent: Less than 30 minutes - Discharge Medications Prescriptions: New Furosemide [Lasix] 20 mg PO DAILY 30 Days #30 tablet Lisinopril/Hydrochlorothiazide [Zestoretic 10-12.5 mg Tablet] 1 each PO DAILY 30 Days #30 tablet Nitroglycerin 0.4 mg SL PRN PRN 30 Days #30 tab.subl PRN Reason: Chest Pain Pantoprazole Sodium [Protonix] 40 mg PO BID 30 Days #60 granpkt. Continue Sertraline [Zoloft] 200 mg PO HS metFORMIN [Glucophage] 1,000 mg PO BIDWM Cholecalciferol (D-3) [Vitamin D] 1,000 unit PO DAILY Docusate [Colace] 200 mg PO DAILY PRN PRN Reason: Constipation Aspirin 81 mg PO DAILY Ipratropium/Albuterol Neb [Duoneb] 3 ml IH TID PRN PRN Reason: Dyspnea Budesonide/Formoterol 80/4.5 [Symbicort 80/4.5] 2 puff IH BIDR #1 inhaler Tiotropium [place] [Spiriva Respimat] 2 puff IH DAILY Albuterol Neb [Proventil Neb] 2.5 mg IH Q6H PRN PRN Reason: break through wheeze Albuterol Sulfate [Albuterol Inhaler] 2 puff PO Q4H PRN PRN Reason: Shortness Of Breath Baclofen 5 mg PO BID Chlorhexidine Rinse 15 ml PO BID Ferrous Sulfate [Iron] 325 mg PO DAILY Gabapentin [Neurontin] 100 mg PO QID Magnesium Oxide [Mag-Oxide Magnesium] 400 mg PO BID Montelukast [Singulair] 10 mg PO DAILY Pantoprazole Sodium [Protonix] 40 mg PO DAILY Polyvinyl Alcohol [Artificial Tears] 1 drop BOTH EYES TID Potassium Chloride [Klor-Con 10] 20 meq PO DAILY Roflumilast [Daliresp] 500 mcg PO DAILY Torsemide [Demadex] 20 mg PO BID Metoprolol [Lopressor] 50 mg PO BID Simvastatin [Zocor] 80 mg PO HS Discontinued Losartan [Cozaar] 25 mg PO DAILY Home Medications: Metoprolol [Lopressor] 50 mg PO BID 05/27/15 [History] Simvastatin [Zocor] 80 mg PO HS 05/27/15 [History] Sertraline [Zoloft] 200 mg PO HS 08/12/16 [History] metFORMIN [Glucophage] 1,000 mg PO BIDWM 08/12/16 [History] Aspirin 81 mg PO DAILY 04/28/17 [History] Cholecalciferol (D-3) [Vitamin D] 1,000 unit PO DAILY 04/28/17 [History] Docusate [Colace] 200 mg PO DAILY PRN 04/28/17 [History] Ipratropium/Albuterol Neb [Duoneb] 3 ml IH TID PRN 04/28/17 [History] Budesonide/Formoterol 80/4.5 [Symbicort 80/4.5] 2 puff IH BIDR #1 inhaler 07/13/17 [Rx] Tiotropium [place] [Spiriva Respimat] 2 puff IH DAILY 08/18/17 [History] Albuterol Neb [Proventil Neb] 2.5 mg IH Q6H PRN 12/21/18 [History] Albuterol Sulfate [Albuterol Inhaler] 2 puff PO Q4H PRN 12/21/18 [History] Baclofen 5 mg PO BID 12/21/18 [History] Chlorhexidine Rinse 15 ml PO BID 12/21/18 [History] Ferrous Sulfate [Iron] 325 mg PO DAILY 12/21/18 [History] Gabapentin [Neurontin] 100 mg PO QID 12/21/18 [History] Magnesium Oxide [Mag-Oxide Magnesium] 400 mg PO BID 12/21/18 [History] Montelukast [Singulair] 10 mg PO DAILY 12/21/18 [History] Pantoprazole Sodium [Protonix] 40 mg PO DAILY 12/21/18 [History] Polyvinyl Alcohol [Artificial Tears] 1 drop BOTH EYES TID 12/21/18 [History] Potassium Chloride [Klor-Con 10] 20 meq PO DAILY 12/21/18 [History] Roflumilast [Daliresp] 500 mcg PO DAILY 12/21/18 [History] Torsemide [Demadex] 20 mg PO BID 12/21/18 [History] Furosemide [Lasix] 20 mg PO DAILY 30 Days #30 tablet 12/22/18 [Rx] Lisinopril/Hydrochlorothiazide [Zestoretic 10-12.5 mg Tablet] 1 each PO DAILY 30 Days #30 tablet 12/22/18 [Rx] Nitroglycerin 0.4 mg SL PRN PRN 30 Days #30 tab.subl 12/22/18 [Rx] Pantoprazole Sodium [Protonix] 40 mg PO BID 30 Days #60 granpkt. 12/22/18 [Rx] Allergies/Adverse Reactions: Allergy/AdvReac Type Severity Reaction Status Date / Time azithromycin [From Zithromax] Allergy Hives Verified 08/18/17 14:08 Date of admission: 12/20/18 17:45 Primary care physician: PCP [facility] Consults: 12/20/18 20:26 Consult to Gastroenterology [CONS] Routine Consulting Provider: Gastroenterology Vicki Reason for Consult: 68 y/o M w/ COPD & CAD sent from [facility] for recurring anemia suspected secondary to GI losses. s/p 2U pRBC but still dropping. Call Completed: No Discharging clinician: Ky Lane Anticipated date of discharge: 12/22/18 - Constitutional Vitals: Temp Pulse Resp BP Pulse Ox 97.6 F 56 17 125/76 97 12/22/18 07:54 12/22/18 07:54 12/22/18 07:54 12/22/18 07:54 12/22/18 07:54 Exam: General: Obese white male sitting comfortably in chair in no acute distress. HEENT: Moist mucous membranes. Chest: CTAB no wheezes, rales. Heart: Normal S1 & S2; rhythmic. No rubs or murmurs. Abdomen: Protuberant, soft and non-tender to palpation. No peritoneal reaction. Extremities: No clubbing, cyanosis. 1+ pedal edema. No calf tenderness. Neurological: Awake, alert and oriented to person, place and time. No focal deficits. - Patient Status Disposition: Home, Self-Care Condition: Fair Functional capacity at discharge: independent ambulation Overall status at discharge: patient is progressing back to baseline - Discharge Instructions Instructions: Acute Respiratory Distress Syndrome (DC), Anemia (GEN) Follow Up With: Ayaz Armando MD [Partnered Physician] - (web-requested, the office will call the patient to schedule a follow up appointment. ) [facility],PC[facility] [Primary Care Provider] - - Diet and Activity Activity: increase activity as tolerated Diet: diabetic diet <Chelle Joshi - Last Filed: 12/22/18 17:53> Orders not resulted at time of discharge: Pending orders 12/20/18 19:38 Occult Blood,Stool [BF] Stat Date of Encounter: 12/22/18 - Discharge Diagnosis (1) CAD (coronary artery disease) Status: Chronic Qualifiers: Coronary Disease-Associated Artery/Lesion type: [place] artery [place] vs. transplanted heart: [place] heart Associated angina: without angina Qualified Code(s): I25.10 - Atherosclerotic heart disease of [place] coronary artery without angina pectoris (2) DVT prophylaxis Status: Acute (3) COPD (chronic obstructive pulmonary disease) Status: Chronic Qualifiers: COPD type: unspecified COPD Qualified Code(s): J44.9 - Chronic obstructive pulmonary disease, unspecified (4) Acute and chronic respiratory failure with hypoxia Status: Acute (5) Anemia Status: Acute Qualifiers: Anemia type: iron deficiency Iron deficiency anemia type: chronic blood loss Qualified Code(s): D50.0 - Iron deficiency anemia secondary to blood loss (chronic) Hospital course: Mr. Edmonds is a 68 year old male - Time Spent with Patient Total time spent providing and/or coordinating discharge services: Date of admission: 12/20/18 17:45 Primary care physician: [facility]CP [facility] Consults: 12/20/18 20:26 Consult to Gastroenterology [CONS] Routine Consulting Provider: Sadaf Cohen Reason for Consult: 68 y/o M w/ COPD & CAD sent from [place] for recurring anemia suspected secondary to GI losses. s/p 2U pRBC but still dropping. Call Completed: No - Constitutional Vitals: Temp Pulse Resp BP Pulse Ox 97.4 F L 70 17 109/63 91 12/22/18 15:24 12/22/18 15:24 12/22/18 15:24 12/22/18 15:24 12/22/18 15:24 - Attending Attestation I examined this patient and my medical decision-making was reviewed with the Resident Physician. I agree with the documented findings, disposition and treatment plan as described except to the extent set forth below.
[2018-12-22] MEDS ORDERED: Iron Sucrose Complex 400 MG in 0.9 % Sodium Chloride 250 ML IVPB ONE (11:49)
[2018-12-22 12:18] LABS: Hematocrit 28.6 % (37.5-50.1); Hemoglobin 8.8 g/dL (12.9-16.9)
[2018-12-22 15:41] VITALS: BP 109/63
== END 2018-12-22 16:51 | disposition home or self-care (01) ==
LOC: 3ANU → SUATTDRO 17:45
PROVIDERS: ADMIT Hospitalist; ATTEND Student in an Organized Health Care Education/Training Program

== ENCOUNTER 2019-05-12 05:42 | Inpatient (IN) ==
--- NOTE | 2019-05-12 06:01 | Emergency Department Note ---
Disposition Clinical Impression: NSTEMI (non-ST elevated myocardial infarction) Disposition: Still a Patient Condition: Fair Forms: ED Satisfaction Letter Time of Disposition: 07:21 Chest Pain HPI - General Chief Complaint: ED Chest Pain Stated Complaint: Chest Pain Time Seen by Provider: 05/12/19 06:00 Source: patient, family, EMS Mode of arrival: EMS Limitations: no limitations Vital Signs Reviewed: Yes Nursing Notes Reviewed: Yes - History of Present Illness HPI Narrative: Patient is a 69-year-old male who is presenting from the [facility] for chest pain. Patient has a known history of CAD status post stenting 1, hypertension, hyperlipidemia, diabetes, COPD and CHF. Per patient he was admitted to the [facility] on secondary to chest pain. Yesterday he had an episode of chest pain which he describes starting in his right arm radiating up into his left chest which she described as a pressure sensation, with associated increased shortness of breath. He had no associated nausea, vomiting or diaphoresis. States that the pain occurred while sitting at rest. He was given a total of 3 nitroglycerin, which did resolve his pain. He then was started on Nitropatch. States he has not had any further episodes of pain. This episode lasted minutes. Per the [place], patient had initial troponin within normal limits, however with repeat testing troponin was elevated at 1.460 on 05/11/2019 at 2141. Further blood work including CBC shows hemoglobin of 9.7, potassium of 4.2, sodium 137, calcium of 8.9 and glucose of 149. Creatinine is 1.86 d-dimer is 0.50 BNP is 1796. Chest ray shows pulmonary vascular congestion. Patient does chronically wear 6 L nasal cannula of oxygen. Severity scale (1-10): 0 - Related Data Home Medications Medication Instructions Recorded Confirmed Metoprolol [Lopressor] 50 mg PO BID 05/27/15 05/12/19 Simvastatin [Zocor] 80 mg PO HS 05/27/15 05/12/19 Sertraline [Zoloft] 200 mg PO HS 08/12/16 05/12/19 metFORMIN [Glucophage] 1,000 mg PO BID 08/12/16 05/12/19 Cholecalciferol (D-3) [Vitamin D] 1,000 unit PO DAILY 04/28/17 05/12/19 Docusate [Colace] 200 mg PO DAILY PRN 04/28/17 05/12/19 Tiotropium [place] [Spiriva 2 puff IH DAILY 08/18/17 05/12/19 Respimat] Albuterol Neb [Proventil Neb] 2.5 mg IH Q6H PRN 12/21/18 05/12/19 Albuterol Sulfate [Proventil 2 puff PO Q4H PRN 12/21/18 05/12/19 Inhaler] Baclofen 5 mg PO BID 12/21/18 05/12/19 Ferrous Sulfate [Iron] 325 mg PO TID 12/21/18 05/12/19 Gabapentin [Neurontin] 100 mg PO QID 12/21/18 05/12/19 Magnesium Oxide [Mag-Oxide 400 mg PO BID 12/21/18 05/12/19 Magnesium] Montelukast [Singulair] 10 mg PO DAILY 12/21/18 05/12/19 Pantoprazole Sodium [Protonix] 40 mg PO DAILY 12/21/18 05/12/19 Polyvinyl Alcohol [Artificial 1 drop BOTH EYES TID 12/21/18 05/12/19 Tears] Potassium Chloride [Klor-Con 10] 20 meq PO DAILY 12/21/18 05/12/19 Roflumilast [Daliresp] 500 mcg PO DAILY 12/21/18 05/12/19 Torsemide [Demadex] 20 mg PO BID 12/21/18 05/12/19 Previous Rx's Medication Instructions Recorded Budesonide/Formoterol 80/4.5 2 puff IH BIDR #1 inhaler 07/13/17 [Symbicort 80/4.5] Allergies Allergy/AdvReac Type Severity Reaction Status Date / Time azithromycin [From Zithromax] Allergy Hives Verified 05/12/19 05:55 All systems ED: reviewed and negative except as stated. Review of Systems: As Per HPI Constitutional: Denies: fever, chills ENT ED: Denies: congestion Cardiovascular: Reports: chest pain, dyspnea on exertion. Denies: palpitations, syncope Respiratory: Reports: dyspnea. Denies: cough, wheezes, sputum production Gastrointestinal: Denies: abdominal pain, nausea, vomiting Genitourinary: Denies: dysuria Musculoskeletal: Denies: back pain Integumentary: Denies: rash Neurological: Denies: headache, weakness, confusion Endocrine: Reports: fatigue Chest Pain PMH - Past Medical History Medical history: Reports: arthritis, COPD, coronary artery disease, diabetes, hyperlipidemia, hypertension, myocardial infarction, peripheral artery disease Surgical history: Reports: angioplasty/stent, pacemaker/AICD Psychiatric history: Reports: depression - Social History Smoking Status: Former smoker Alcohol use: Reports: none Drug use: Reports: none Physical Exam - General Limitations: no limitations General appearance: alert, other (Conversationally dyspneic) - Head Head exam: atraumatic, normocephalic, normal inspection - Eye Eye exam: Present: normal appearance, PERRL, EOMI - ENT ENT exam: normal exam, normal oropharynx, mucous membranes moist - Neck Neck exam: Present: normal inspection, full ROM, trachea midline - Chest Chest inspection: Present: normal inspection, symmetric chest wall rise - Respiratory Respiratory exam: Present: prolonged expiratory phase (With crackles in the bases bilaterally, no wheezing, patient currently on 6 L nasal cannula) - Cardiovascular Cardiovascular exam: Present: regular rate, normal rhythm, normal heart sounds - Abdominal Exam Abdominal exam: Present: soft, Non-Tender. Absent: tenderness, distention, guarding, rebound, rigidity - Extremities Exam Extremities exam: Present: normal capillary refill, pedal edema (1+ bilateral lower extremities swelling). Absent: calf tenderness - Expanded Lower Extremity Exam Neurovascular/Tendon exam: Absent: motor deficit, sensory deficit, tendon deficit - Neurological Exam Neurological exam: Present: alert, oriented X3 - Psychiatric Psychiatric exam: Present: normal affect, normal mood - Skin Skin exam: Present: warm, dry, intact, normal color Course Vital Signs Temperature 97.4 F L 05/12/19 05:43 Pulse Rate 71 05/12/19 05:43 Respiratory Rate 20 05/12/19 05:43 Blood Pressure 129/81 05/12/19 05:43 O2 Sat by Pulse Oximetry 93 05/12/19 05:43 Temperature 97.4 F L 05/12/19 05:43 Pulse Rate 75 05/12/19 06:40 Respiratory Rate 18 05/12/19 06:40 Blood Pressure 125/69 05/12/19 06:40 O2 Sat by Pulse Oximetry 89 05/12/19 06:44 Oxygen Delivery Oxygen Delivery Nasal Cannula Chest Pain - [facility] Narrative Medical decision making narrative: Patient is a 69-year-old male who is presenting with chest pain. Patient was brought in via EMS from the [place] for chest pain. Has a known medical history of CAD status post stenting 1, hypertension, hyperlipidemia, COPD, CHF, diabetes mellitus type 2. Patient had chest pain yesterday with initial normal troponin, repeat troponin at 2100 showed elevated troponin at 1.46. Patient did not have further chest pain after initial episode around 1400. Patient was sent for further evaluation and cardiac workup. On arrival to the ER, patient has also oxygen saturation of 88-94%, patient is chronically on 6 L nasal cannula at home. Initial concern for cardiac workup upon review and evaluation of [facility] laboratory work which shows elevated troponin at 1.46 at 2100 on 05/11/2019, BNP is also elevated. On examination, patient is alert and oriented 3, conversationally dyspneic however per is appears to be patient's baseline. Patient with no active cardiac chest pain. Was given 3 aspirin on arrival. EKG shows continued T-wave inversions in the inferior and lateral leads which is unchanged from EKG performed at 2017. Given patient's cardiac history as well as concern with continued elevation in troponin, patient was started on low-dose ACS heparin treatment. Repeat laboratory work including CBC, BMP, troponin, PT, PTT were performed as well as a chest x-ray. Pending laboratory work, patient will be admitted for for the ACS evaluation for an NSTEMI. Patient was signed out to Dr. Guthrie and Dr. Ohara at 0700. - Medical Records Medical records reviewed: Yes I reviewed the patient's medical records. - Lab Data Lab results reviewed: Yes I reviewed the patient's lab results. Result diagrams: 05/12/19 06:56 Lab Results 05/12/19 Range/Units 06:56 WBC 11.3 H (4.3-11.1) K/mcL RBC 3.27 L (4.19-5.50) M/mcL Hgb 8.9 L (12.9-16.9) g/dL Hct 27.4 L (37.5-50.1) % MCV 83.8 (83.0-100.0) fL MCH 27.2 L (28.0-33.3) pg MCHC 32.5 (31.6-35.5) g/dL RDW 19.1 H (11.5-14.5) % Plt Count 154 (140-400) K/mcL MPV 11.0 (9.4-12.4) fL Immature Gran % 2.9 (0-4) % Seg Neutrophils % 83.4 % Lymphocytes % 3.7 % Monocytes % 9.8 % Eosinophils % 0.0 % Basophils % 0.2 % Neutrophils # 9.4 H (1.6-8.9) K/mcL Lymphocytes # 0.4 L (0.6-4.6) K/mcL Monocytes # 1.1 (0.0-1.3) K/mcL Eosinophils # 0.0 (0.0-0.6) K/mcL Basophils # 0.0 (0.0-0.2) K/mcL - Radiology Data Radiology results reviewed: Yes I reviewed the patient's radiology results. Chest X-Ray 05/12/19 06:12 IMPRESSION: Chronic pulmonary changes without focal airspace consolidation. D/ / Jermaine Stewart / Jermaine Stewart Interpreting Provider: Jermaine Stewart - EKG Data EKG attestation: Yes I reviewed and interpreted this EKG. EKG results narrative: EKG performed at 0 551 with ventricular rate of 73, regular rhythm, normal axis, there is a right bundle branch block, T-wave inversions in 2, 3, aVF as well as V2 through V5 and 6, there are total of 2 atrial paced beats, when compared to old EKG on 2016, T-wave inversions are unchanged. No acute ST segment elevations or depressions. Heart Score - Score History: Moderately Suspicious EKG: Non Specific repolarisation Disturbance Age: Greater than 65 Risk Factors: Equal/Greater than 3 risk factor or history of atherosclerotic disease Troponin: Greater than 3x normal limit HEART Score Total: 8
[2019-05-12] MEDS ORDERED: Aspirin 81 MG TAB.CHEW PO ONE (06:12)
[2019-05-12] MEDS ORDERED: *HR* Heparin 5,000 UNIT/ML VIAL IVP PRN ×2 (06:52)
[2019-05-12] MEDS ORDERED: *HR* Heparin 5,000 UNIT/ML VIAL IVP ONE (06:52)
[2019-05-12] MEDS ORDERED: Heparin 25,000 UNIT/250 ML D5W 25,000 UNIT/250 ML IV.SOLN IVC SCH (07:00)
[2019-05-12 07:13] LABS: Basophils % 0.2 %; Hematocrit 27.4 % (37.5-50.1); Hemoglobin 8.9 g/dL (12.9-16.9); Immature Granulocytes % 2.9 % (0-4); Lymphocytes # 0.4 K/mcL (0.6-4.6); Lymphocytes % 3.7 %; Mean Corpuscular HGB Conc 32.5 g/dL (31.6-35.5); Mean Corpuscular Hemoglobin 27.2 pg (28.0-33.3); Mean Corpuscular Volume 83.8 fL (83.0-100.0); Monocytes # 1.1 K/mcL (0.0-1.3); Monocytes % 9.8 %; Neutrophils # 9.4 K/mcL (1.6-8.9); Platelet Count 154 K/mcL (140-400); Red Blood Count 3.27 M/mcL (4.19-5.50); Red Cell Distribution Width 19.1 % (11.5-14.5); Segmented Neutrophils % 83.4 %; White Blood Count 11.3 K/mcL (4.3-11.1)
[2019-05-12 07:15] LABS: Heparin anti-factor XA UFH 0.09 IU/mL (0.30-0.70); Prothrombin Time 11.4 Seconds (9.4-12.1)
--- NOTE | 2019-05-12 07:22 | Emergency Department Note ---
Disposition Clinical Impression: NSTEMI (non-ST elevated myocardial infarction) Chest pain Qualifiers: Chest pain type: unspecified Qualified Code(s): R07.9 - Chest pain, unspecified Disposition: Admitted As Inpatient [facility]Primary Care Provider[facility] - Forms: ED Satisfaction Letter Time of Disposition: 07:43 General Adult HPI - General Chief complaint: ED Chest Pain Stated complaint: Chest Pain Time Seen by Provider: 05/12/19 06:00 Source: patient, family, EMS Mode of arrival: EMS Limitations: no limitations - History of Present Illness HPI Narrative: Patient is a 69-year-old male presenting from the [place] during his admission he developed chest pain and elevated troponin of 1.46. He was sent here for further evaluation and management. Patient was signed out by night auditor team, Dr. oFnseca and Dr. Pickett. Please see their documentation for complete history and physical examination, ROS, assessment and plan. Repeat lab work, chest x- ray is pending. Patient was started on heparin. He will be admitted for N STEMI. Pain Scale: 0 - Related Data Home Medications Medication Instructions Recorded Confirmed Metoprolol [Lopressor] 50 mg PO BID 05/27/15 05/12/19 Simvastatin [Zocor] 80 mg PO HS 05/27/15 05/12/19 Sertraline [Zoloft] 200 mg PO HS 08/12/16 05/12/19 metFORMIN [Glucophage] 1,000 mg PO BID 08/12/16 05/12/19 Cholecalciferol (D-3) [Vitamin D] 1,000 unit PO DAILY 04/28/17 05/12/19 Docusate [Colace] 200 mg PO DAILY PRN 04/28/17 05/12/19 Tiotropium [place] [Spiriva 2 puff IH DAILY 08/18/17 05/12/19 Respimat] Albuterol Neb [Proventil Neb] 2.5 mg IH Q6H PRN 12/21/18 05/12/19 Albuterol Sulfate [Proventil 2 puff PO Q4H PRN 12/21/18 05/12/19 Inhaler] Baclofen 5 mg PO BID 12/21/18 05/12/19 Ferrous Sulfate [Iron] 325 mg PO TID 12/21/18 05/12/19 Gabapentin [Neurontin] 100 mg PO QID 12/21/18 05/12/19 Magnesium Oxide [Mag-Oxide 400 mg PO BID 12/21/18 05/12/19 Magnesium] Montelukast [Singulair] 10 mg PO DAILY 12/21/18 05/12/19 Pantoprazole Sodium [Protonix] 40 mg PO DAILY 12/21/18 05/12/19 Polyvinyl Alcohol [Artificial 1 drop BOTH EYES TID 12/21/18 05/12/19 Tears] Potassium Chloride [Klor-Con 10] 20 meq PO DAILY 12/21/18 05/12/19 Roflumilast [Daliresp] 500 mcg PO DAILY 12/21/18 05/12/19 Torsemide [Demadex] 20 mg PO BID 12/21/18 05/12/19 Previous Rx's Medication Instructions Recorded Budesonide/Formoterol 80/4.5 2 puff IH BIDR #1 inhaler 07/13/17 [Symbicort 80/4.5] Allergies Allergy/AdvReac Type Severity Reaction Status Date / Time azithromycin [From Zithromax] Allergy Hives Verified 05/12/19 05:55 Constitutional: Denies: fever, chills ENT ED: Denies: congestion Cardiovascular: Reports: chest pain, dyspnea on exertion. Denies: palpitations, syncope Respiratory: Reports: dyspnea. Denies: cough, wheezes, sputum production Gastrointestinal: Denies: abdominal pain, nausea, vomiting Genitourinary: Denies: dysuria Musculoskeletal: Denies: back pain Integumentary: Denies: rash Neurological: Denies: headache, weakness, confusion Endocrine: Reports: fatigue Past Medical History - Past Medical History Medical history: Reports: arthritis, COPD, coronary artery disease, diabetes, hyperlipidemia, hypertension, myocardial infarction, peripheral artery disease Surgical history: Reports: angioplasty/stent, pacemaker/AICD Psychiatric history: Reports: depression - Social History Smoking Status: Former smoker Smokeless Tobacco Status: No Alcohol use: Reports: none Drug use: Reports: none Physical Exam - General Limitations: no limitations General appearance: alert, other (Conversationally dyspneic) Course Vital Signs Temperature 97.4 F L 05/12/19 05:43 Pulse Rate 71 05/12/19 05:43 Respiratory Rate 20 05/12/19 05:43 Blood Pressure 129/81 05/12/19 05:43 O2 Sat by Pulse Oximetry 93 05/12/19 05:43 Temperature 97.4 F L 05/12/19 05:43 Pulse Rate 73 05/12/19 07:33 Respiratory Rate 17 05/12/19 07:33 Blood Pressure 110/75 05/12/19 07:33 O2 Sat by Pulse Oximetry 81 05/12/19 07:33 Oxygen Delivery Oxygen Delivery Oximizer Medical Decision Making - MDM Narrative Medical decision making narrative: Please see Dr. Fonseca complete assessment and plan. Admission is pending repeat lab work and chest x-ray. He has hardly been started on heparin. He has an unchanged EKG from 2017. He did have an elevation in his troponin to 1.45. He is chest pain-free at this time and vitals are stable. 07:35 Troponin 1.48. Hospitalist paged for admission. 07:40 Discussed with hospitalist, Dr. Hale, who accepts admission - Medical Records Medical records reviewed: Yes I reviewed the patient's medical records. - Lab Data Lab results reviewed: Yes I reviewed the patient's lab results. Result diagrams: 05/12/19 06:56 05/12/19 06:56 Lab Results 05/12/19 05/12/19 05/12/19 Range/Units 06:56 06:56 06:56 WBC 11.3 H (4.3-11.1) K/mcL RBC 3.27 L (4.19-5.50) M/mcL Hgb 8.9 L (12.9-16.9) g/dL Hct 27.4 L (37.5-50.1) % MCV 83.8 (83.0-100.0) fL MCH 27.2 L (28.0-33.3) pg MCHC 32.5 (31.6-35.5) g/dL RDW 19.1 H (11.5-14.5) % Plt Count 154 (140-400) K/mcL MPV 11.0 (9.4-12.4) fL Immature Gran % 2.9 (0-4) % Seg Neutrophils % 83.4 % Lymphocytes % 3.7 % Monocytes % 9.8 % Eosinophils % 0.0 % Basophils % 0.2 % Neutrophils # 9.4 H (1.6-8.9) K/mcL Lymphocytes # 0.4 L (0.6-4.6) K/mcL Monocytes # 1.1 (0.0-1.3) K/mcL Eosinophils # 0.0 (0.0-0.6) K/mcL Basophils # 0.0 (0.0-0.2) K/mcL PT 11.4 (9.4-12.1) Seconds INR 1.0 APTT 27.0 (26.0-36.0) Seconds Heparin Anti-Xa, Unfract 0.09 L (0.30-0.70) IU/mL Sodium 139 (136-145) mEq/L Potassium 3.9 (3.5-5.1) mEq/L Chloride 100 (98-107) mEq/L Carbon Dioxide 27 (23-29) mEq/L BUN 39 H (8-23) mg/dL Creatinine 1.17 (0.70-1.30) mg/dL Est GFR ( Amer) > 60 (> 60) Est GFR (Non-Af Amer) > 60 (> 60) BUN/Creatinine Ratio 33 H (6-26) Glucose 184 H (70-105) mg/dL Calculated Osmolality 302 H (280-300) Calcium 9.3 (8.6-10.3) mg/dL Troponin I 1.48 H* (< 0.04) ng/mL - Radiology Data Radiology results reviewed: Yes I reviewed the patient's radiology results. Chest X-Ray 05/12/19 06:12 IMPRESSION: Chronic pulmonary changes without focal airspace consolidation. D/ / Jermaine Stewart / Jermaine Stewart Interpreting Provider: Jermaine Stewart
[2019-05-12 07:32] LABS: BUN/Creatinine Ratio 33 (6-26); Blood Urea Nitrogen 39 mg/dL (8-23); Calcium 9.3 mg/dL (8.6-10.3); Carbon Dioxide 27 mEq/L (23-29); Chloride 100 mEq/L (98-107); Glucose 184 mg/dL (70-105); Osmolality,Calculated 302 (280-300); Potassium 3.9 mEq/L (3.5-5.1); Sodium 139 mEq/L (136-145); eGFR For African Americans > 60 (> 60); eGFR For Non-African Americans > 60 (> 60)
[2019-05-12 07:38] LABS: Troponin I 1.48 ng/mL (< 0.04)
[2019-05-12] MEDS ORDERED: *HR* HYDROcodone/Acet 5/325 mg TABLET PO PRN (07:42)
[2019-05-12] MEDS ORDERED: Ondansetron 4 MG/2 ML VIAL IVP PRN (07:42)
[2019-05-12] MEDS ORDERED: Acetaminophen 325 MG TABLET PO PRN (07:42)
[2019-05-12] MEDS ORDERED: Naloxone 0.4 MG/ML INJ IVP PRN (07:42)
--- NOTE | 2019-05-12 07:54 | Emergency Department Note ---
Disposition Clinical Impression: NSTEMI (non-ST elevated myocardial infarction) Chest pain Qualifiers: Chest pain type: unspecified Qualified Code(s): R07.9 - Chest pain, unspecified Disposition: Admitted As Inpatient Condition: Fair [facility]errals: [facility] [Primary Care Provider] - Forms: ED Satisfaction Letter Time of Disposition: 07:21 General Adult HPI - General Chief complaint: ED Chest Pain Stated complaint: Chest Pain Time Seen by Provider: 05/12/19 06:00 Source: patient, family, EMS Mode of arrival: EMS Limitations: no limitations Nursing Notes Reviewed: Yes Vital Signs Reviewed: Yes - History of Present Illness Pain Scale: 0 - Related Data Home Medications Medication Instructions Recorded Confirmed Metoprolol [Lopressor] 50 mg PO BID 05/27/15 05/12/19 Simvastatin [Zocor] 80 mg PO HS 05/27/15 05/12/19 Sertraline [Zoloft] 200 mg PO HS 08/12/16 05/12/19 metFORMIN [Glucophage] 1,000 mg PO BID 08/12/16 05/12/19 Cholecalciferol (D-3) [Vitamin D] 1,000 unit PO DAILY 04/28/17 05/12/19 Docusate [Colace] 200 mg PO DAILY PRN 04/28/17 05/12/19 Tiotropium [place] [Spiriva 2 puff IH DAILY 08/18/17 05/12/19 Respimat] Albuterol Neb [Proventil Neb] 2.5 mg IH Q6H PRN 12/21/18 05/12/19 Albuterol Sulfate [Proventil 2 puff PO Q4H PRN 12/21/18 05/12/19 Inhaler] Baclofen 5 mg PO BID 12/21/18 05/12/19 Ferrous Sulfate [Iron] 325 mg PO TID 12/21/18 05/12/19 Gabapentin [Neurontin] 100 mg PO QID 12/21/18 05/12/19 Magnesium Oxide [Mag-Oxide 400 mg PO BID 12/21/18 05/12/19 Magnesium] Montelukast [Singulair] 10 mg PO DAILY 12/21/18 05/12/19 Pantoprazole Sodium [Protonix] 40 mg PO DAILY 12/21/18 05/12/19 Polyvinyl Alcohol [Artificial 1 drop BOTH EYES TID 12/21/18 05/12/19 Tears] Potassium Chloride [Klor-Con 10] 20 meq PO DAILY 12/21/18 05/12/19 Roflumilast [Daliresp] 500 mcg PO DAILY 12/21/18 05/12/19 Torsemide [Demadex] 20 mg PO BID 12/21/18 05/12/19 Previous Rx's Medication Instructions Recorded Budesonide/Formoterol 80/4.5 2 puff IH BIDR #1 inhaler 07/13/17 [Symbicort 80/4.5] Allergies Allergy/AdvReac Type Severity Reaction Status Date / Time azithromycin [From Zithromax] Allergy Hives Verified 05/12/19 05:55 Constitutional: Denies: fever, chills ENT ED: Denies: congestion Cardiovascular: Reports: chest pain, dyspnea on exertion. Denies: palpitations, syncope Respiratory: Reports: dyspnea. Denies: cough, wheezes, sputum production Gastrointestinal: Denies: abdominal pain, nausea, vomiting Genitourinary: Denies: dysuria Musculoskeletal: Denies: back pain Integumentary: Denies: rash Neurological: Denies: headache, weakness, confusion Endocrine: Reports: fatigue Past Medical History - Past Medical History Medical history: Reports: arthritis, COPD, coronary artery disease, diabetes, hyperlipidemia, hypertension, myocardial infarction, peripheral artery disease Surgical history: Reports: angioplasty/stent, pacemaker/AICD Psychiatric history: Reports: depression - Social History Smoking Status: Former smoker Smokeless Tobacco Status: No Alcohol use: Reports: none Drug use: Reports: none Physical Exam - General Limitations: no limitations General appearance: alert, other (Conversationally dyspneic) Course Vital Signs Temperature 97.4 F L 05/12/19 05:43 Pulse Rate 71 05/12/19 05:43 Respiratory Rate 20 05/12/19 05:43 Blood Pressure 129/81 05/12/19 05:43 O2 Sat by Pulse Oximetry 93 05/12/19 05:43 Temperature 97.4 F L 05/12/19 05:43 Pulse Rate 73 05/12/19 07:33 Respiratory Rate 17 05/12/19 07:33 Blood Pressure 110/75 05/12/19 07:33 O2 Sat by Pulse Oximetry 81 05/12/19 07:33 Oxygen Delivery Oxygen Delivery Oximizer Medical Decision Making - Medical Records Medical records reviewed: Yes I reviewed the patient's medical records. - Lab Data Lab results reviewed: Yes I reviewed the patient's lab results. Result diagrams: 05/12/19 06:56 05/12/19 06:56 Lab Results 05/12/19 05/12/19 05/12/19 Range/Units 06:56 06:56 06:56 WBC 11.3 H (4.3-11.1) K/mcL RBC 3.27 L (4.19-5.50) M/mcL Hgb 8.9 L (12.9-16.9) g/dL Hct 27.4 L (37.5-50.1) % MCV 83.8 (83.0-100.0) fL MCH 27.2 L (28.0-33.3) pg MCHC 32.5 (31.6-35.5) g/dL RDW 19.1 H (11.5-14.5) % Plt Count 154 (140-400) K/mcL MPV 11.0 (9.4-12.4) fL Immature Gran % 2.9 (0-4) % Seg Neutrophils % 83.4 % Lymphocytes % 3.7 % Monocytes % 9.8 % Eosinophils % 0.0 % Basophils % 0.2 % Neutrophils # 9.4 H (1.6-8.9) K/mcL Lymphocytes # 0.4 L (0.6-4.6) K/mcL Monocytes # 1.1 (0.0-1.3) K/mcL Eosinophils # 0.0 (0.0-0.6) K/mcL Basophils # 0.0 (0.0-0.2) K/mcL PT 11.4 (9.4-12.1) Seconds INR 1.0 APTT 27.0 (26.0-36.0) Seconds Heparin Anti-Xa, Unfract 0.09 L (0.30-0.70) IU/mL Sodium 139 (136-145) mEq/L Potassium 3.9 (3.5-5.1) mEq/L Chloride 100 (98-107) mEq/L Carbon Dioxide 27 (23-29) mEq/L BUN 39 H (8-23) mg/dL Creatinine 1.17 (0.70-1.30) mg/dL Est GFR ( Amer) > 60 (> 60) Est GFR (Non-Af Amer) > 60 (> 60) BUN/Creatinine Ratio 33 H (6-26) Glucose 184 H (70-105) mg/dL Calculated Osmolality 302 H (280-300) Calcium 9.3 (8.6-10.3) mg/dL Troponin I 1.48 H* (< 0.04) ng/mL - Radiology Data Radiology results reviewed: Yes I reviewed the patient's radiology results. Chest X-Ray 05/12/19 06:12 IMPRESSION: Chronic pulmonary changes without focal airspace consolidation. D/ / Jermaine Stewart / Jermaine Stewart Interpreting Provider: Jermaine Stewart - EKG Data EKG #1 EKG attestation: Yes I reviewed and interpreted this EKG. EKG results narrative: EKG shows a normal sinus rhythm with ventricular rate of 73. Right bundle branch block. No significant ST segment elevation or depression. There are T- wave inversions inferiorly and anterolaterally however this was present on prior EKG. No significant change from prior EKG dated 08/18/2017. Critical Care Time Critical Care Time: Yes Total Critical Care Time: 45 Attestation: Critical care performed: Time is exclusive of separately billable procedures. Time includes: direct patient care, patient reassessment, coordination of patient care, interpretation of data (laboratory data, radiology data, and respiratory data), review of patient's medical records, medical consultation and documentation of patient care. Procedures included in critical care time: Procedures excluded from critical care time: Attestation Statement - Attestation Attestation: IPhoenix MD, personally evaluated this patient and discussed their management with the resident physician. I reviewed the resident's note and agree with the documented findings, medical decision making, and plan of care. I reviewed the residents documentation and agree with the residents assessment and plan of care. I have personally had face to face time with the patient. I personally supervised and was present for the toro/critical portions of the following procedures completed by the resident: EKG interpretation. 69-year-old male who was an inpatient at the [place] [facility] and was transferred here for cardiac evaluation. Patient was admitted to the [place] on at noon. He states he had an appointment with his PCP and was just admitted for some testing and evaluation. Yesterday on Tuesday about 2 PM he developed some chest pain. He was given nitroglycerin and aspirin and a nitroglycerin patch. The chest pain resolved. He had serial cardiac enzymes. His initial troponin was 0.02 however tonight his troponin increased to 1.46. Patient denies any chest pain on arrival here. He does admit to some shortness of breath but state s he has chronic shortness of breath and it is unchanged from usual. He normally uses oxygen at 6 L/m by nasal cannula. On examination patient is a well-developed well-nourished well-appearing elderly male in no acute distress. He is alert and oriented 3. There is no cyanosis or diaphoresis. Chest is nontender to palpation. Breath sounds are clear and equal bilaterally. Heart regular rate and rhythm. Abdomen soft and nontender with normal bowel sounds. Chest x-ray shows some chronic pulmonary changes but no acute abnormality. EKG shows a sinus rhythm with right bundle branch block. No acute changes unchanged from prior EKG. Labs reviewed. Troponin here is 1.48. He was started on a heparin infusion. At morning shift change [facility], Dr. Guthrie and Dr. Ohara. Patient is just awaiting hospitalist consultation for admission.
--- NOTE | 2019-05-12 07:57 | Internal Med History&Physical ---
Date of Encounter: 05/12/19 Time of Encounter: 07:54 Internal Medicine - H&P: HPI Chief complaint: CP Admitted From: Emergency Dept History of present illness: Sarabjit Edmonds is a 69 M w hx CAD s/p stent, HFpEF, CHB s/p pacer '15, HTN, HLD, DM2, COPD on 6L, who p/w CP. Patient was inpatient at the [place] and had episode of chest pain, troponin was elevated to 1.4, and thus he was transferred here for Cardio workup. He actually went to a pulmonology appointment on and was found to be hypoxic and complaining of BURDICK, and thus admitted f or further workup. CTPE negative for PE. He was given Lasix for diuresis and steroids/nebs for possible COPD with improvement to his baseline oxygenation. On Tuesday (yesterday), he developed chest pain/pressure radiating into arm that improved with nitro. No fever, palpitations, cough, change in sputum production today. Last TTE 09/2018 EF 55% w diastolic dysfunction, hypokinetic inferior wall. In [facility], patient vitals afebrile, HR 70s, RR 18, BP 120s/70s, satting high 80s% on 6L. CXR unremarkable, ECG unchanged from previous. Labs notable for WBC 11, Hb 9, BUN 39, Cr 1.2, BG 184, trop 1.48. Pt started on hep gtt and admitted. Past medical, surgical, social, and family histories reviewed and updated as below. Past Med Surg Social Fam HX - Past Medical History Medical history: arthritis, COPD, coronary artery disease, diabetes, hyperlipidemia, hypertension, myocardial infarction, peripheral artery disease Psychiatric history: depression - Past Surgical History Surgical History: angioplasty/stent, pacemaker/AICD Additional surgical history: tonsilectomy, 1 heart stent (RCA), pacemaker - Social History Smoking Status: Former smoker Smokeless Tobacco Status: No Alcohol use: none Drug use: none - Family History Father Adopted: No Family Member Ethnicity: Non- Living Status: Hx Family Cardiac Disorders: No Hx Family Respiratory Disorders: Yes (black lung) Hx Family Cancer: No Hx Family GI Disorders: No Hx Family Endocrine Disorder: No Hx Family Neuromuscular Disorders: No Hx Family Neurologic Disorders: No Hx Family HEENT Disorders: No Hx Family Autoimmune Disorders: No Internal Medicine - H&P: Meds Metoprolol [Lopressor] 50 mg PO BID 05/27/15 [History] Simvastatin [Zocor] 80 mg PO HS 05/27/15 [History] Sertraline [Zoloft] 200 mg PO HS 08/12/16 [History] metFORMIN [Glucophage] 1,000 mg PO BID 08/12/16 [History] Cholecalciferol (D-3) [Vitamin D] 1,000 unit PO DAILY 04/28/17 [History] Docusate [Colace] 200 mg PO DAILY PRN 04/28/17 [History] Budesonide/Formoterol 80/4.5 [Symbicort 80/4.5] 2 puff IH BIDR #1 inhaler 07/13/17 [Rx] Tiotropium [place] [Spiriva Respimat] 2 puff IH DAILY 08/18/17 [History] Albuterol Neb [Proventil Neb] 2.5 mg IH Q6H PRN 12/21/18 [History] Albuterol Sulfate [Proventil Inhaler] 2 puff PO Q4H PRN 12/21/18 [History] Baclofen 5 mg PO BID 12/21/18 [History] Ferrous Sulfate [Iron] 325 mg PO TID 12/21/18 [History] Gabapentin [Neurontin] 100 mg PO QID 12/21/18 [History] Magnesium Oxide [Mag-Oxide Magnesium] 400 mg PO BID 12/21/18 [History] Montelukast [Singulair] 10 mg PO DAILY 12/21/18 [History] Pantoprazole Sodium [Protonix] 40 mg PO DAILY 12/21/18 [History] Polyvinyl Alcohol [Artificial Tears] 1 drop BOTH EYES TID 12/21/18 [History] Potassium Chloride [Klor-Con 10] 20 meq PO DAILY 12/21/18 [History] Roflumilast [Daliresp] 500 mcg PO DAILY 12/21/18 [History] Torsemide [Demadex] 20 mg PO BID 12/21/18 [History] Allergy/AdvReac Type Severity Reaction Status Date / Time azithromycin [From Zithromax] Allergy Hives Verified 05/12/19 05:55 All Systems PM: A 10-system review of systems was performed and is negative for pertinent findings except as documented above in the HPI. - Constitutional Vitals: Temp Pulse Resp BP Pulse Ox 97.4 F L 73 17 110/75 81 05/12/19 05:43 05/12/19 07:33 05/12/19 07:33 05/12/19 07:33 05/12/19 07:33 Exam: General: NAD, good eye contact, chronically ill appearing elderly man in good spirits, obese Head: Atraumatic, normocephalic. Face symmetric Eyes: EOMI, sclerae anicteric ENT: Mucous membranes moist. Normal oral mucosa. Trachea midline. Thoracic: Pacer on chest. Mildly diminished aeration but otherwise normal lung sounds, no wheezes or crackles Cardio: Normal S1 and S2, regular rate and rhythm Abdomen: Soft, nontender, nondistended, obese Extremities: Warm, well perfused. DP pulses 2+ b/l. No clubbing, cyanosis. Does have pitting edema to mid-hilario b/l Skin: Intact. No rashes, bruises, or ulcers Neuro: Awake, fully oriented. Moderate memory, decent concentration and attention. Speech fluent. CN II-XII grossly intact. Strength 5/5 in b/l UE and LE Internal Med - H&P Results - Labs CBC & Chem 7: 05/12/19 06:56 05/12/19 06:56 Labs: Short CBC 05/12/19 Range/Units 06:56 WBC 11.3 H (4.3-11.1) K/mcL Hgb 8.9 L (12.9-16.9) g/dL Hct 27.4 L (37.5-50.1) % Plt Count 154 (140-400) K/mcL Neutrophils # 9.4 H (1.6-8.9) K/mcL BMP 05/12/19 06:56 Sodium 139 Potassium 3.9 Chloride 100 Carbon Dioxide 27 BUN 39 H Creatinine 1.17 Glucose 184 H Calcium 9.3 Cardiac Enzymes 05/12/19 Range/Units 06:56 Troponin I 1.48 H* (< 0.04) ng/mL - Impressions ITS Impressions Chest X-Ray 05/12/19 06:12 IMPRESSION: Chronic pulmonary changes without focal airspace consolidation. D/ / Jermaine Stewart / Jermaine Stewart Interpreting Provider: Jermaine Stewart - Summary of Assessment and Plan Summary of Assessment and Plan: Sarabjit Edmonds is a 69 M w hx CAD s/p PCI, HFpEF, HTN, HLD, DM2, COPD on 6L, who p/w CP, elevated troponin, c/w NSTEMI. NSTEMI: - hep gtt - start ASA 81 - defer plavix until LHC or per cardio - change to Lipitor 80 from zocor 80 - home metoprolol 50 bid - start lisinopril 2.5 and uptitrate after [facility] if hypertensive - TTE - Cardio consult for [facility] COPD and chronic hypoxic respiratory failure: on home 6L. [facility] respiratory failure from possible acute on chronic HFpEF requiring diuresis as well as COPD exacerbation but this has improved, and lungs overall sound remarkable clear relative to his degree of O2 requirement - continue home SENAIT, LABA/ICS, LAMA, daliresp - prednisone 40 and azithro 500 daily x4d CKD2: baseline Cr ~1-1.1. Per pt's daughter, pt had recent BONIFACIO requiring holding of lasix. Did get CTPE study yesterday. - monitor UOP and Cr daily, especially since also now going for [facility] CAD/HLD: meds as above HFpEF: holding home torsemide 20 bid until checking renal function after [facility], currently euvolemic HTN: controlled, lopressor as above DM2: w hyperglycemia, holding PO meds, use SSI while inpatient Obesity: BMI 38 PPx: hep gtt Tele: yes Activity: up ad [place] FEN: cardiac ADA 1.5L, no MIVF Lines: PIV Consults: Cardio Code: Full Dispo: patient requires inpatient eval and management at this time. Anticipate 2-3 days. Will be homegoing
--- NOTE | 2019-05-12 08:10 | Emergency Department Note ---
Disposition Clinical Impression: NSTEMI (non-ST elevated myocardial infarction) Chest pain Qualifiers: Chest pain type: unspecified Qualified Code(s): R07.9 - Chest pain, unspecified Disposition: Admitted As Inpatient Condition: Fair [facility]: [facility] Care Provider[facility] - Forms: ED Satisfaction Letter Time of Disposition: 07:45 General Adult HPI - General Chief complaint: ED Chest Pain Stated complaint: Chest Pain Time Seen by Provider: 05/12/19 06:00 Source: patient, family, EMS Mode of arrival: EMS Limitations: no limitations - History of Present Illness Pain Scale: 0 - Related Data Home Medications Medication Instructions Recorded Confirmed Metoprolol [Lopressor] 50 mg PO BID 05/27/15 05/12/19 Simvastatin [Zocor] 80 mg PO HS 05/27/15 05/12/19 Sertraline [Zoloft] 200 mg PO HS 08/12/16 05/12/19 metFORMIN [Glucophage] 1,000 mg PO BID 08/12/16 05/12/19 Cholecalciferol (D-3) [Vitamin D] 1,000 unit PO DAILY 04/28/17 05/12/19 Docusate [Colace] 200 mg PO DAILY PRN 04/28/17 05/12/19 Tiotropium [place] [Spiriva 2 puff IH DAILY 08/18/17 05/12/19 Respimat] Albuterol Neb [Proventil Neb] 2.5 mg IH Q6H PRN 12/21/18 05/12/19 Albuterol Sulfate [Proventil 2 puff PO Q4H PRN 12/21/18 05/12/19 Inhaler] Baclofen 5 mg PO BID 12/21/18 05/12/19 Ferrous Sulfate [Iron] 325 mg PO TID 12/21/18 05/12/19 Gabapentin [Neurontin] 100 mg PO QID 12/21/18 05/12/19 Magnesium Oxide [Mag-Oxide 400 mg PO BID 12/21/18 05/12/19 Magnesium] Montelukast [Singulair] 10 mg PO DAILY 12/21/18 05/12/19 Pantoprazole Sodium [Protonix] 40 mg PO DAILY 12/21/18 05/12/19 Polyvinyl Alcohol [Artificial 1 drop BOTH EYES TID 12/21/18 05/12/19 Tears] Potassium Chloride [Klor-Con 10] 20 meq PO DAILY 12/21/18 05/12/19 Roflumilast [Daliresp] 500 mcg PO DAILY 12/21/18 05/12/19 Torsemide [Demadex] 20 mg PO BID 12/21/18 05/12/19 Previous Rx's Medication Instructions Recorded Budesonide/Formoterol 80/4.5 2 puff IH BIDR #1 inhaler 07/13/17 [Symbicort 80/4.5] Allergies Allergy/AdvReac Type Severity Reaction Status Date / Time azithromycin [From Zithromax] Allergy Hives Verified 05/12/19 05:55 Constitutional: Denies: fever, chills ENT ED: Denies: congestion Cardiovascular: Reports: chest pain, dyspnea on exertion. Denies: palpitations, syncope Respiratory: Reports: dyspnea. Denies: cough, wheezes, sputum production Gastrointestinal: Denies: abdominal pain, nausea, vomiting Genitourinary: Denies: dysuria Musculoskeletal: Denies: back pain Integumentary: Denies: rash Neurological: Denies: headache, weakness, confusion Endocrine: Reports: fatigue Past Medical History - Past Medical History Medical history: Reports: arthritis, COPD, coronary artery disease, diabetes, hyperlipidemia, hypertension, myocardial infarction, peripheral artery disease Surgical history: Reports: angioplasty/stent, pacemaker/AICD Psychiatric history: Reports: depression - Social History Smoking Status: Former smoker Smokeless Tobacco Status: No Alcohol use: Reports: none Drug use: Reports: none Physical Exam - General Limitations: no limitations General appearance: alert, other (Conversationally dyspneic) Course Vital Signs Temperature 97.4 F L 05/12/19 05:43 Pulse Rate 71 05/12/19 05:43 Respiratory Rate 20 05/12/19 05:43 Blood Pressure 129/81 05/12/19 05:43 O2 Sat by Pulse Oximetry 93 05/12/19 05:43 Temperature 97.4 F L 05/12/19 05:43 Pulse Rate 73 05/12/19 07:33 Respiratory Rate 17 05/12/19 07:33 Blood Pressure 110/75 05/12/19 07:33 O2 Sat by Pulse Oximetry 81 05/12/19 07:33 Oxygen Delivery Oxygen Delivery Oximizer Medical Decision Making - Lab Data Result diagrams: 05/12/19 06:56 05/12/19 06:56 Lab Results 05/12/19 05/12/19 05/12/19 Range/Units 06:56 06:56 06:56 WBC 11.3 H (4.3-11.1) K/mcL RBC 3.27 L (4.19-5.50) M/mcL Hgb 8.9 L (12.9-16.9) g/dL Hct 27.4 L (37.5-50.1) % MCV 83.8 (83.0-100.0) fL MCH 27.2 L (28.0-33.3) pg MCHC 32.5 (31.6-35.5) g/dL RDW 19.1 H (11.5-14.5) % Plt Count 154 (140-400) K/mcL MPV 11.0 (9.4-12.4) fL Immature Gran % 2.9 (0-4) % Seg Neutrophils % 83.4 % Lymphocytes % 3.7 % Monocytes % 9.8 % Eosinophils % 0.0 % Basophils % 0.2 % Neutrophils # 9.4 H (1.6-8.9) K/mcL Lymphocytes # 0.4 L (0.6-4.6) K/mcL Monocytes # 1.1 (0.0-1.3) K/mcL Eosinophils # 0.0 (0.0-0.6) K/mcL Basophils # 0.0 (0.0-0.2) K/mcL PT 11.4 (9.4-12.1) Seconds INR 1.0 APTT 27.0 (26.0-36.0) Seconds Heparin Anti-Xa, Unfract 0.09 L (0.30-0.70) IU/mL Sodium 139 (136-145) mEq/L Potassium 3.9 (3.5-5.1) mEq/L Chloride 100 (98-107) mEq/L Carbon Dioxide 27 (23-29) mEq/L BUN 39 H (8-23) mg/dL Creatinine 1.17 (0.70-1.30) mg/dL Est GFR ( Amer) > 60 (> 60) Est GFR (Non-Af Amer) > 60 (> 60) BUN/Creatinine Ratio 33 H (6-26) Glucose 184 H (70-105) mg/dL Calculated Osmolality 302 H (280-300) Calcium 9.3 (8.6-10.3) mg/dL Troponin I 1.48 H* (< 0.04) ng/mL Attestation Statement - Attestation Attestation: Patient checked out by Dr. Fonseca and Dr. Pickett at change of shift. Patient discussed with Dr. Guthrie. Repeat troponin without significant change. He remains pain-free at the time of admission. Accepted by hospitalist.
--- NOTE | 2019-05-12 08:58 | Cardiology Consult Note ---
Date of Encounter: 05/12/19 Time of Encounter: 08:55 Assessment and Plan (1) NSTEMI (non-ST elevated myocardial infarction) Current Visit: Yes Status: Acute 69-year-old male with a history of CAD, remote PCI 2007 to the RCA. Recently treated for hypoxemia, respiratory status currently at baseline per patient. During evaluation at the [facility], sudden onset of chest pain as described in the HPI. ECG chronically abnormal, unchanged from previous. Troponin 1.48. Presentation consistent with ACS, NSTEMI. Recommend continued ACS therapy, including aspirin, atorvastatin, heparin drip, and beta lio therapy. Currently, states symptoms have improved with medical therapy. We discussed options, including cardiac catheterization. We reviewed the risks, benefits, and alternatives to the procedure. Patient and family voiced understanding, was to proceed. We will hold DAPT until time of [facility] later on this morning. Check TTE. Anemia noted. Hemoglobin stable compared to previous readings from 2019. Discussion w patient/family: The assessment and plan as outlined above was discussed with the patient and/or family members who expressed understanding and agreement. All questions were answered. Thank you for involving us in the care of your patient. Please call with any questions. History of Present Illness Consult date: 05/12/19 Requesting physician: Dylan Hale Consult reason: NSTEMI Chief complaint: Chest pain History of present illness: Mr. Edmonds is a 69 year old male with a history of CAD, remote IA/PCI to RCA in 2007, complete heart block status post pacemaker in 2014. Comorbidities include obesity, essential hypertension, and 6 L supplemental oxygen-dependent COPD. Patient reports he went to the [facility] for a routine visit on . He was noted to be hypoxemic and admitted to the hospital. Patient reports that his baseline oxygen saturation on 6 L supplemental support is between 88 and 90%. He states that any activity causes a decrease in oxygen saturation, but recovers after rest and temporary increase in submental oxygen. While at the [facility] on Tuesday, he noticed a sudden onset of substernal chest discomfort. Describes as a pressure sensation across his chest. Lasted for several minutes and improved with nitroglycerin. He does describe radiation down his arm. No associated nausea or vomiting. Currently, he states his respiration status is at baseline, currently on 6 L. Previous testing: TTE 09/2018: EF 55%. Hypokinesis of the basal inferior and inferolateral segments. Mild diastolic dysfunction. RV was mildly dilated with normal function. No obvious evidence of a PFO with agitated saline. No significant valvular dysfunction described. Lexiscan nuclear stress test 08/2015: ECG was nondiagnostic. Gated EF greater than 70%. Moderate to severe intensity, fixed defect in the basal to mid inferolateral segments suggestive of a prior infarct. Negative for ischemia. Past Med Surg Social Fam HX - Past Medical History Medical history: arthritis, COPD, coronary artery disease, diabetes, hyperlipidemia, hypertension, myocardial infarction, peripheral artery disease Psychiatric history: depression - Past Surgical History Surgical History: angioplasty/stent, pacemaker/AICD Additional surgical history: tonsilectomy, 1 heart stent (RCA), pacemaker - Social History Smoking Status: Former smoker Smokeless Tobacco Status: No Alcohol use: none Drug use: none - Family History Father Adopted: No Family Member Ethnicity: Non- Living Status: Hx Family Cardiac Disorders: No Hx Family Respiratory Disorders: Yes (black lung) Hx Family Cancer: No Hx Family GI Disorders: No Hx Family Endocrine Disorder: No Hx Family Neuromuscular Disorders: No Hx Family Neurologic Disorders: No Hx Family HEENT Disorders: No Hx Family Autoimmune Disorders: No Medications and Allergies Metoprolol [Lopressor] 50 mg PO BID 05/27/15 [History] Simvastatin [Zocor] 80 mg PO HS 05/27/15 [History] Sertraline [Zoloft] 200 mg PO HS 08/12/16 [History] metFORMIN [Glucophage] 1,000 mg PO BID 08/12/16 [History] Cholecalciferol (D-3) [Vitamin D] 1,000 unit PO DAILY 04/28/17 [History] Docusate [Colace] 200 mg PO DAILY PRN 04/28/17 [History] Budesonide/Formoterol 80/4.5 [Symbicort 80/4.5] 2 puff IH BIDR #1 inhaler 07/13/17 [Rx] Tiotropium [place] [Spiriva Respimat] 2 puff IH DAILY 08/18/17 [History] Albuterol Neb [Proventil Neb] 2.5 mg IH Q6H PRN 12/21/18 [History] Albuterol Sulfate [Proventil Inhaler] 2 puff PO Q4H PRN 12/21/18 [History] Baclofen 5 mg PO BID 12/21/18 [History] Ferrous Sulfate [Iron] 325 mg PO TID 12/21/18 [History] Gabapentin [Neurontin] 100 mg PO QID 12/21/18 [History] Magnesium Oxide [Mag-Oxide Magnesium] 400 mg PO BID 12/21/18 [History] Montelukast [Singulair] 10 mg PO DAILY 12/21/18 [History] Pantoprazole Sodium [Protonix] 40 mg PO DAILY 12/21/18 [History] Polyvinyl Alcohol [Artificial Tears] 1 drop BOTH EYES TID 12/21/18 [History] Potassium Chloride [Klor-Con 10] 20 meq PO DAILY 12/21/18 [History] Roflumilast [Daliresp] 500 mcg PO DAILY 12/21/18 [History] Torsemide [Demadex] 20 mg PO BID 12/21/18 [History] Allergy/AdvReac Type Severity Reaction Status Date / Time azithromycin [From Zithromax] Allergy Hives Verified 05/12/19 05:55 All Systems Review: The remainder of the systems were reviewed and are negative - Cardiovascular Cardiovascular: as per HPI, chest pain at rest, dyspnea at rest, dyspnea on exertion Physical Examination Vital Signs, Last 4 Hours Temp Pulse Resp BP Pulse Ox 05/12/19 07:33 73 17 110/75 81 05/12/19 06:44 89 05/12/19 06:40 75 18 125/69 88 05/12/19 06:39 71 18 128/70 88 05/12/19 05:43 97.4 F L 71 20 129/81 93 General: Conversant, No Apparent Distress HEENT: Atraumatic, Normocephaly, Mucus Membranes Moist Neck: No JVD, Normal carotid pulses Cardiac: Reg Rate and Rhythm, Normal S1 and S2, No Murmur, Other (Distant.) Lungs: Normal Breath Sounds, No Wheeze, Rales, Rhonchi, Other (Shallow, but clear.) Neuro: Alert and responsive, No focal deficits noted Abdomen: Soft, Non-Tender, Other (Obese) Skin: No rashes noted on visualized skin Musculoskeletal: No Chest Wall Tenderness Extremities: No Clubbing, No Cyanosis, No Edema Results 05/12/19 06:56 05/12/19 06:56 Lab Results 05/12/19 05/12/19 05/12/19 06:56 06:56 06:56 WBC 11.3 H Hgb 8.9 L Hct 27.4 L Plt Count 154 INR 1.0 APTT 27.0 Sodium 139 Potassium 3.9 Chloride 100 Carbon Dioxide 27 BUN 39 H Creatinine 1.17 Glucose 184 H Calcium 9.3 Troponin I 1.48 H* - Imaging and Cardiology Chest Xray: report reviewed Stress Test: report reviewed Echo: report reviewed - EKG Interpretation EKG results cardiology: personally reviewed (ECG demonstrates chronic ST-T wave changes similar to previous.) Consult Discharge Plan - Plan [facility]errals: [facility] [Primary Care Provider] -
[2019-05-12] MEDS ORDERED: NON-FORMULARY MEDICATION 1 EACH EACH (Tiotropium Bromide [Spiriva Respimat] 2 PUFF) IH SCH (09:00)
[2019-05-12] MEDS ORDERED: Torsemide 20 MG TABLET PO SCH (09:00)
[2019-05-12] MEDS ORDERED: 0.9 % Sodium Chloride 1,000 ML ONE (09:36)
[2019-05-12] MEDS ORDERED: Heparin 1,000 UNITS/500 mL 500 ML ONE (09:36)
[2019-05-12] MEDS ORDERED: *HR* Heparin 10,000 UNIT/10 ML VIAL ONE (09:37)
[2019-05-12] MEDS ORDERED: Nitroglycerin 1,000 MCG/10 ML VIAL IV ONE (09:37)
[2019-05-12] MEDS ORDERED: Iopamidol 125 ML INFUS..BTL ONE ×2 (09:37→10:18)
--- NOTE | 2019-05-12 10:07 | Pre-Sedation Evaluation ---
Pre-sedation evaluation - Pre-sedation checklist Date of procedure: 05/12/19 Procedure: [facility] Recent Vitals: Last Vital Signs Temp 97.4 F L 05/12/19 05:43 Pulse 70 05/12/19 09:15 Resp 22 05/12/19 09:15 BP 120/71 05/12/19 09:15 Pulse Ox 89 05/12/19 09:15 H&P (including ROS) documented in medical record: Yes Previous reaction to sedatives/anesthetics: No Dietary Status: NPO after Midnight Dentition: No loose teeth or bridges ASA Classification *see protocol: CLASS III-Severe systemic disease Plan of Care: Pt appropriate candidate for procedure/moderate/conscious sedation, Risks/benefits of procedure/sedation discussed w/ patient/family Cardiac Registry (Cardio Only) - Functional Capacity Functional Capacity: < 4 METS - Clincal Frailty Scale Clinical Frailty Scale: Mildly Frail
[2019-05-12] MEDS ORDERED: *HR* FentaNYL (PF) 100 MCG/2 ML VIAL ONE (10:08)
[2019-05-12] MEDS ORDERED: *HR* Midazolam HCl 2 MG/2 ML VIAL ONE (10:08)
[2019-05-12] MEDS: Budesonide/Formoterol 80/4.5 1 PUFF INH IH SCH ×2 (10:24→19:54)
--- NOTE | 2019-05-12 10:55 | Invasive Diagnostic Lab Proc ---
Name: Sarabjit Edmonds Date of Study: 05/12/2019 Date: 1950 Ht: 66.9in Medical Record#: [id number] Age: 69 Wt: 247.80lb Gender: Male BSA: 2.21 Order #: [id number] BMI: 38.89 Physicians Procedure Physician: Ethan Hernandez MD, [facility] Referring MD: Referring MD: Staff Name Position Time In Dottie Gilman RT (R) Monitor 10:05 AM Mily Taverasnifer RT (R) Scrub 10:05 AM Hood Cuellar RN Senior Account Director 10:05 AM Procedures Performed Procedure L HRT ARTERY/VENTRICLE ANGIO Pre-Procedure Checklist Informed consent is complete signed and on chart. H&P is on chart. ID band is on and ID verified with patient. Patient NPO for procedure The procedure was described for the patient and questions were answered. Blood Pressure: 134/65 ECG is on chart. Rhythm: NSR Plan of Care Patient will tolerate the procedure without complications. Adequate level of comfort will be maintained. Hemodynamics will remain stable Patient will recover from procedure without complications. Respiratory function will be maintained. Cardiac rhythm will remain stable. Patient temperature will be maintained. Patient and/or family have verbalized understanding of the procedure. Patient Education Chief Complaint/Reason for Test: Cardiac Cath Developmental Category: Geriatric (65+ years) Developmentally Appropriate for Age: Yes Learning Barriers: None Education Needs: Procedure Education Method: Verbal Information Taught: Cardiac Cath Educational Evaluation: Able to repeat information Intravenous Access Time IV Size Location DC'd Fluid/Drip Rate Units RN 09:55 AM 20g 1 1/4" Patent On Arrival Rt Hand 0.9NaCl 25 ml/hr Hood Cuellar RN Allergies azithromycin Vital Signs Time BP (mmHg) HR (bpm) O2 Sat. RR (bpm) LOC 10:05 AM / % 5 = Fully awake and oriented or at pre-proc level 10:05 AM / % 4 = Oriented but drowsy 10:20 AM / % 4 = Oriented but drowsy 10:08 AM 134 / 65 71 87 % 16 10:12 AM 138 / 85 137 92 % 18 10:17 AM 131 / 78 72 92 % 16 10:22 AM 126 / 76 72 88 % 16 10:27 AM 117 / 75 71 86 % 16 10:32 AM 116 / 71 76 85 % 16 10:37 AM 121 / 73 72 87 % 16 Procedural Medications Time Medication Dose Units Method Given By 10:12 AM Versed 2 mg Intravenous Hood Cuellar RN 10:12 AM Fentanyl 50 mcg Intravenous Hood Cuellar RN 10:12 AM Oxygen 6 L/min Oxy Mask Hood Cuellar RN 10:25 AM Lidocaine 2% 19 ml Subcutaneous Ethan Hernandez MD, [facility] ASA Classification: CLASS III- Severe systemic disease (i.e. prior AMI, diabetes with vascular complications, morbid obesity) Zulema Score Preprocedure Postprocedure Activity 2- Moves 4 extremities sustained head lift Activity 2- Moves 4 extremities sustained head lift Circulation 2- SBP +/= 20 points of pre-anesthetic level Circulation 2- SBP +/= 20 points of pre-anesthetic level Consciousness 2- Awake and alert oriented x 3 Consciousness 2- Awake and alert oriented x 3 O2 Saturation 0- O2 saturation 90% even with O2 supplement O2 Saturation 0- O2 saturation 90% even with O2 supplement Respiratory 2- Able to deep breathe and cough well Respiratory 2- Able to deep breathe and cough well Total Score 8 Total Score 8 Contrast Agent: Isovue Diagnostic Contrast: 69 ml Total Contrast: 69 ml Fluoro Dose: 26 mGy Procedure Log Time Note Enter By 10:05 AM Pt arrived to hospital laboratory technician 2 at 10:05 twilson 10:05 AM Physician arrived 10:05 twilson 10:05 AM Meet and andres completed twilson 10:05 AM Sign in performed according to hospital policy. Informed consent was obtained. twilson 10:05 AM Dottie Gilman RT (R) Position: Monitor Time in: 10: twilson 10:05 AM Ute Taveras RT (R) Position: Scrub Time in: 10: twilson 10:05 AM Hood Cuellar RN Position: Senior Account Director Time in: 10: twilson 10:05 AM Patient charges- Angio tray pack, Navilyst 3mm J, Pulse Oximetry and ACIST tubing and transducer twilson 10:05 AM Case Delayed no twilson 10:05 AM Time: 10:05 Patient comfortable and pain free: Yes twilson 10:05 AM Time: 10:05LOC: 5 = Fully awake and oriented or at pre-proc level twilson 10:06 AM CathStat 10:06 AM Vitals capture started with the following parameters, Patient=Adult, Interval=5 min, Initial Sdqrwhqc=072 mmHg, Deflation Rate=3 mmHg, Cuff placed on Right Arm 10:08 AM HR=71 bpm, VQOG=076/65 mmhg, SpO2=87.0 %, Resp=16 B/min 10:11 AM Recorded ECG: HR=70 Condition=Condition 1 10:12 AM Procedure start 10:12 twilson 10:12 AM Time: 10:12 Versed 2 mg Intravenous Given by Hood Cuellar RN [facility] 10:12 AM Time: 10:12 Fentanyl 50 mcg Intravenous Given by Hood Cuellar RN [facility] 10:12 AM OR=029 bpm, TFEO=776/85 mmhg, SpO2=92.0 %, Resp=18 B/min 10:12 AM Time: 10:12 Oxygen on at 6 L/min per Oxy Mask by Hood Cuellar RN [facility] 10:15 AM Hair removed from procedure site in procedure lab using clippers. Bilateral groin prepped with Chloraprep by Dottie Gilman), then patient was draped. Skin intact. twilson 10:17 AM HR=72 bpm, UNKW=462/78 mmhg, SpO2=92.0 %, Resp=16 B/min 10:17 AM Pressure channel 1 zero failed. 10:17 AM Pressure channel 1 zero failed. 10:17 AM Pressure channel 1 zeroed. 10:20 AM Time: 10:05 Patient comfortable and pain free: Yes twilson 10:20 AM Time: 10:05LOC: 4 = Oriented but drowsy twilson 10:22 AM Time out was performed according to hospital policy. Conscious sedation and anesthesia was achieved (see medication log with in this report above) twilson 10:22 AM HR=72 bpm, SBWU=607/76 mmhg, SpO2=88.0 %, Resp=16 B/min 10:24 AM ASA Class CLASS III- Severe systemic disease (i.e. prior AMI, diabetes with vascular complications, morbid obesity) twilson 10:25 AM Time: 10:25 19 ml Lidocaine 2% to right groin Subcutaneous Given by Ethan Hernandez MD, [facility] twilson 10:25 AM Micro-Introducer Kit utilized for sheath placement twilson 10:26 AM Access obtained by percutaneous puncture. 5Fr 10cm Terumo [place] sheath placed in right Femoral artery. [id number] twilson 10: AM Wire removed, intact. twilson 10:26 AM 5Fr FL 4 catheter inserted over the wire DNC twilson 10:26 AM Recorded Pressure: Ao, HR=71, Condition=Condition 1 (Aorta) Ao 116/67/88 10:26 AM LCA angiography performed in multiple views. twilson 10:27 AM HR=71 bpm, TTZN=580/75 mmhg, SpO2=86.0 %, Resp=16 B/min 10:27 AM Recorded Pressure: Ao, HR=70, Condition=Condition 1 (Aorta) Ao 97/64/79 10:28 AM Lesion found in Proximal LAD. Pre Stenosis: 50 Pre JORGE LUIS Flow: twilson 10:28 AM Proximal Left Anterior Descending Coronary Artery with 50% stenosis. If graft is supplying this territory, 0 % stenosis. twilson 10:29 AM Lesion found in Mid LAD. Pre Stenosis: 30 Pre JORGE LUIS Flow: twilson 10:29 AM Mid/Distal Left Anterior Descending Coronary Artery and diagonal branches with 30% stenosis. If graft is supplying this area, 0 % stenosis twilson 10:29 AM Lesion found in Mid Circumflex. Pre Stenosis: 70 Pre JORGE LUIS Flow: twilson 10:29 AM Circumflex, Obtuse Marginal, Left Posterior Descending, and Left Posterolateral Coronary Arteries with 70 % stenosis. If graft is supplying this area, 0 % stenosis twilson 10:29 AM Wire reinserted. twilson 10:30 AM Catheter removed twilson 10:30 AM 5Fr FR 4 catheter inserted over the wire DN twilson 10:30 AM Recorded Pressure: Ao, HR=76, Condition=Condition 1 (Aorta) Ao 104/73/89 10:30 AM Recorded Pressure: Ao, HR=76, Condition=Condition 1 (Aorta) Ao 98/68/83 10:30 AM Wire removed, intact. twilson 10:31 AM RCA angiography performed in multiple views. twilson 10:31 AM Wire reinserted. twilson 10:31 AM Catheter removed twilson 10:31 AM 5Fr Pigtail catheter inserted over the wire DN twilson 10:32 AM Catheter crossed the aortic valve and was selectively placed in the left ventricle. Pressures recorded on pullback for left heart catheterization. twilson 10:32 AM Wire removed twilson 10:32 AM HR=76 bpm, GLLS=312/71 mmhg, SpO2=85.0 %, Resp=16 B/min 10:32 AM Pressure channel 1 zero failed. 10:32 AM Pressure channel 1 zeroed. 10:32 AM Recorded Pressure: LV, HR=76, Condition=Condition 1 (Left Ventricle) LV 107/2/11 10:33 AM Lesion found in Mid RCA. Pre Stenosis: 100 Pre JORGE LUIS Flow: twilson 10:33 AM Recorded Pressure: LV, Ao, HR=77, Condition=Condition 1 (Left Ventricle) LV 110/4/24, (Aorta) Ao 114/58/82 10:33 AM Bolus angiogram of left Ventricle complete: 12 ml/sec for a total of 30 mls twilson 10:33 AM Wire reinserted. twilson 10:34 AM Wire and catheter removed. twilson 10:34 AM Bolus angiogram of right Femoral complete: 2 ml/sec for a total of 4 mls twilson 10:34 AM Lesion found in 1st Marginal. Pre Stenosis: 65 Pre JORGE LUIS Flow: twilson 10:35 AM Right Coronary, Right Posterior Descending Arteries with Right Posterolateral and Acute Marginal branches with 100 % stenosis. If graft is supplying this area, 0 % stenosis twilson 10:36 AM Time: 10:20LOC: 4 = Oriented but drowsy twilson 10:36 AM Time: 10:20 Patient comfortable and pain free: Yes twilson 10:36 AM Coronary Dominance: right twilson 10:37 AM Procedure completed at 10:37 05/12/2019 twilson 10:37 AM Did you address JORGE LUIS flow and Dominance? YesCoronary Dominance: right twilson 10:37 AM HR=72 bpm, TYYF=725/73 mmhg, SpO2=87.0 %, Resp=16 B/min 10:38 AM Sign out completed: Radiation Dose 206.66 mGy, 26.0 Gy/cm2 Fluoro Time: 1.1 Isovue 370 - 125ml contrast 69 ml given by Ethan Hernandez MD, [facility]. Complications: None. The patient was discharged out of the laborer/key man in stable condition. Sedation minutes 26. Cardiac Rehab Consult needed: No. Confirmed administered medications: Yes twilson 10:38 AM Isovue 370 - 125ml,2 Bottle(s) used. twilson 10:39 AM Arterial sheath pulled, Mynx closure device used and was Successful [id number] S/N. twilson 10:39 AM Estimated Blood Loss: minimal twilson 10:39 AM Post ECG NSR twilson 10:39 AM Post Blood Pressure 121/73 twilson 10:39 AM 10:39 Post Pulses Bilateral DP 2+ twilson 10:39 AM 10:39 Post Pulses Bilateral PT 1+ twilson 10:39 AM Information taught Cardiac Cath and Mynx twilson 10:40 AM Education needs Procedure, Plan of Care, and Responsibilities of Patient in Care twilson 10:40 AM Learning barriers :None twilson 10:40 AM Education Methods Verbal twilson 10:40 AM Education evaluation Able to repeat information twilson 10:40 AM Site status No bleeding/ No Hematoma - Rt Groin as reported by Ute Taveras RT (R) at 10:40 twilson 10:40 AM Opsite applied twilson 10:40 AM Family placed in consult room. twilson 10:42 AM Vitals capture stopped. 10:49 AM Report given to Chandler BHAGAT Pt taken to E Room #23. 10:48 twilson 10:49 AM Patient out of room: 10:49 twilson Complications Complication None Hemodynamics Pressures Site Systolic/A Wave Diastolic/V Wave Mean AO 116 67 88 AO 97 64 79 AO 104 73 89 AO 98 68 83 LV 107 2 11 LV 110 4 24 AO 114 58 82 Post Procedure Information Blood Pressure: 121/73 mmHg Rhythm: NSR Post procedural instructions were given Closure Device Time Device Success/Fail 05/12/2019 10:40:00 AM MynxGrip Successful Site Checks Time Location Status Staff Sheath In? Note 10:40 AM Rt Groin No bleeding/ No Hematoma Ute Taveras RT (R) Pulses Time Site Pre-Procedure Post-Procedure Note 05/12/2019 9:55:00 AM Bilateral DP 2+ 05/12/2019 9:55:00 AM Bilateral PT 1+ 10:39:00 AM Bilateral DP 2+ 10:39:00 AM Bilateral PT 1+ Updated by Dottie Gilman RT (R) on 05/12/2019 10:49:14 AM electronically signed on 05/12/2019 10:49:40 AM with status of Final
[2019-05-12] MEDS: Gabapentin 100 MG CAPSULE PO SCH ×4 (11:15→20:59)
[2019-05-12] MEDS: Artificial Tears SOLN 15 ML BOTTLE BOTH EYES SCH ×3 (11:15→21:00)
[2019-05-12] MEDS: predniSONE 20 MG TABLET PO SCH (11:27)
[2019-05-12] MEDS ORDERED: Perflutren Lipid Microsphere 1.3 ML in 0.9 % Sodium Chloride 8.7 ML IVP ONE (15:13)
[2019-05-12] MEDS: Roflumilast [Daliresp] 500 MCG PO SCH (16:25)
[2019-05-12] MEDS: Tiotropium 18 MCG inhalation IH SCH (19:58)
[2019-05-13 05:25] LABS: Hematocrit 26.8 % (37.5-50.1); Hemoglobin 8.5 g/dL (12.9-16.9); Mean Corpuscular HGB Conc 31.7 g/dL (31.6-35.5); Mean Corpuscular Hemoglobin 27.2 pg (28.0-33.3); Mean Corpuscular Volume 85.9 fL (83.0-100.0); Mean Platelet Volume 10.7 fL (9.4-12.4); Platelet Count 139 K/mcL (140-400); Red Blood Count 3.12 M/mcL (4.19-5.50); Red Cell Distribution Width 19.5 % (11.5-14.5); White Blood Count 6.3 K/mcL (4.3-11.1)
[2019-05-13 05:49] LABS: BUN/Creatinine Ratio 34 (6-26); Blood Urea Nitrogen 40 mg/dL (8-23); Calcium 8.9 mg/dL (8.6-10.3); Carbon Dioxide 30 mEq/L (23-29); Chloride 104 mEq/L (98-107); Glucose 145 mg/dL (70-105); Magnesium 2.1 mg/dL (1.6-2.6); Osmolality,Calculated 306 (280-300); Potassium 3.9 mEq/L (3.5-5.1); Sodium 142 mEq/L (136-145); Troponin I 0.82 ng/mL (< 0.04); eGFR For African Americans > 60 (> 60); eGFR For Non-African Americans > 60 (> 60)
[2019-05-13] MEDS: Budesonide/Formoterol 80/4.5 1 PUFF INH IH SCH ×2 (07:54→20:29)
[2019-05-13] MEDS: Tiotropium 18 MCG inhalation IH SCH (07:54)
[2019-05-13] MEDS: Aspirin 81 MG TAB.CHEW PO SCH (09:19)
[2019-05-13] MEDS: Gabapentin 100 MG CAPSULE PO SCH ×4 (09:19→21:13)
[2019-05-13] MEDS: predniSONE 20 MG TABLET PO SCH (09:19)
[2019-05-13] MEDS: Artificial Tears SOLN 15 ML BOTTLE BOTH EYES SCH ×3 (09:22→21:13)
[2019-05-13] MEDS: Roflumilast [Daliresp] 500 MCG PO SCH (09:22)
--- NOTE | 2019-05-13 11:32 | Cardiology Progress Note ---
Date of Encounter: 05/13/19 Time of Encounter: 09:30 Assessment and Plan (1) NSTEMI (non-ST elevated myocardial infarction) Current Visit: Yes Status: Acute Per cardiololgy: -69-year-old male with a history of CAD, remote PCI 2007 to the RCA. -ECG chronically abnormal, unchanged from previous. -Troponin 1.48, down trending. -S/p LHC yesterday with 50% prox LAD, 30% mid LAD, 70% mid Circ, 65% OM1 bifurcation leasion, 100% mid RCA CAVING GUIDE with left to right collaterals. Medical management recommended. -Patient denies chest pain. -TTE with LVEF 55%, mid inferior and basal inferior wall hypokinesis. -Discussed and reviewed with , continue asa, statin, BB. With anemia, do not recommend plavix at this time. -Risk factor modification stressed with patient and family. -Cardiology will sign off, will arrange outpatient follow up. Discussion w patient/family: The assessment and plan as outlined above was discussed with the patient and/or family members who expressed understanding and agreement. All questions were answered. Thank you for involving us in the care of your patient. Please call with any questions. Discussed and reviewed with . Subjective Principal diagnosis: NSTEMI Interval history: Patient is s/p LHC yesterday. Denies chest pain. Denies issues using right leg. Patient states he has been up sitting in chair this morning. Objective Vital Signs, Last 4 Hours Temp Pulse Resp BP Pulse Ox 05/13/19 11:04 97.7 F 63 18 117/68 96 05/13/19 07:58 16 96 General: Conversant, No Apparent Distress HEENT: Atraumatic, Normocephaly, Mucus Membranes Moist Neck: No JVD, Normal carotid pulses Cardiac: Reg Rate and Rhythm, Normal S1 and S2, No Murmur Lungs: Other (Inspiratory wheezes noted throughout. ) Neuro: Alert and responsive, No focal deficits noted Abdomen: Soft, Non-Tender Skin: No rashes noted on visualized skin, Other (Right groin access site without ecchymosis or hematoma. ) Musculoskeletal: No Chest Wall Tenderness Extremities: No Clubbing, No Cyanosis, No Edema, Normal Pulses Results 05/13/19 05:03 05/13/19 05:03 Lab Results Impressions Echocardiogram 05/12/19 07:58 Impressions: LVEF 55%. Normal LV chamber size, wall thickness and overall function. Mild segmental left ventricular systolic dysfunction. Atypical septal motion consistent with paced rhythm. Mildly dilated right ventricle with normal function. Unable to estimate RVSP due to lack of TR jet. No obvious significant valvular dysfunction. A device lead was visualized in the right atrium and right ventricle. Left Ventricular Wall Motion: Rest Echo Findings The mid inferior and basal inferior costa were hypokinetic. All other wall segments showed normal motion. Findings: Study Quality * Technically sub-optimal due to poor echocardiographic windows. ECG Findings * Paced rhythm. Left Ventricle * LVEF 55%. * Normal LV chamber size, wall thickness and overall function. * Mild segmental left ventricular systolic dysfunction. * Atypical septal motion consistent with paced rhythm. Right Ventricle * Mildly dilated right ventricle with normal function. Left Atrium * Mildly dilated left atrium. Right Atrium * Mildly dilated right atrium. Interatrial Septum * Interatrial septum not well evaluated. Aortic Valve * Aortic valve not well visualized. * No aortic regurgitation. * No aortic stenosis. Mitral Valve * Normal mitral valve structure and function. * No mitral regurgitation. * No mitral stenosis. Tricuspid Valve * Tricuspid valve not well visualized. * No tricuspid regurgitation. * Unable to estimate RVSP due to lack of TR jet. Pulmonic Valve * Pulmonic valve not well visualized. Aorta * Normally sized aortic root. Pericardium * The pericardium appears normal. IVC * The IVC is not well evaluated. Device lead * A device lead was visualized in the right atrium and right ventricle. Pulmonary Artery * Pulmonary artery not well visualized. Active Medications Acetaminophen (Tylenol) 650 mg PO Q6HR PRN PRN Reason: Mild Pain/Fever Stop: 11/11/19 07:43 Hydrocodone Bitart/Acetaminophen ([place] 5-325 Mg) 1 tab PO Q6HR PRN PRN Reason: Moderate Pain Stop: 11/11/19 07:43 Artificial Tears ([place] Tears) 1 drop BOTH EYES TID [facility]; Protocol Stop: 11/11/19 09:01 Last Admin: 05/13/19 09:22 Dose: 1 drop Documented by: Aspirin (Aspirin) 81 mg PO DAILY [facility] Stop: 11/12/19 09:01 Last Admin: 05/13/19 09:19 Dose: 81 mg Documented by: Atorvastatin Calcium (Lipitor) 80 mg PO HS [facility] Stop: 11/11/19 21:01 Last Admin: 05/12/19 20:59 Dose: 80 mg Documented by: Budesonide/Formoterol Fumarate (Symbicort) 2 puff IH BIDR [facility]; Protocol Stop: 11/11/19 10:01 Last Admin: 05/13/19 07:54 Dose: 2 puff Documented by: Docusate Sodium (Colace) 200 mg PO DAILY PRN; Protocol PRN Reason: Constipation Stop: 11/11/19 07:46 Gabapentin (Neurontin) 100 mg PO QID [facility] Stop: 11/11/19 09:01 Last Admin: 05/13/19 09:19 Dose: 100 mg Documented by: Heparin Sodium (Porcine) (Heparin) 4,000 unit IVP Q6HR PRN PRN Reason: SEE COMMENTS Stop: 11/11/19 06:53 Heparin Sodium (Porcine) (Heparin) 2,000 unit IVP Q6H PRN PRN Reason: SEE COMMENTS Stop: 11/11/19 06:53 Lisinopril (Zestril) 2.5 mg PO DAILY [facility]; Protocol Stop: 11/11/19 09:01 Last Admin: 05/13/19 09:19 Dose: 2.5 mg Documented by: Metoprolol Tartrate (Lopressor) 50 mg PO BID [facility] Stop: 11/11/19 09:01 Last Admin: 05/13/19 09:19 Dose: 50 mg Documented by: Montelukast Sodium (Singulair) 10 mg PO DAILY [facility] Stop: 11/11/19 09:01 Last Admin: 05/13/19 09:19 Dose: 10 mg Documented by: Naloxone HCl (Narcan) 0.4 mg IVP Q2MPRN PRN PRN Reason: SEE COMMENTS Stop: 11/11/19 07:43 Ondansetron HCl (Zofran) 4 mg IVP Q8HR PRN PRN Reason: Nausea And Vomiting Stop: 11/11/19 07:43 Pharmacy Profile Note (Patient Taking Own Medication) 1 each PO DAILY [facility] Stop: 11/11/19 09:01 Last Admin: 05/13/19 09:22 Dose: Not Given Documented by: Potassium Chloride (Potassium Chloride) 20 meq PO DAILY [facility] Stop: 11/11/19 09:01 Last Admin: 05/13/19 09:19 Dose: 20 meq Documented by: Prednisone (Prednisone) 40 mg PO DAILY [facility] Stop: 05/15/19 09:01 Last Admin: 05/13/19 09:19 Dose: 40 mg Documented by: Sertraline HCl (Zoloft) 200 mg PO HS [facility] Stop: 11/11/19 21:01 Last Admin: 05/12/19 20:59 Dose: 200 mg Documented by: Tiotropium [place] (Spiriva) 18 mcg IH DAILY@0700 [facility] Stop: 11/11/19 16:26 Last Admin: 05/13/19 07:54 Dose: 18 mcg Documented by: Laboratory Tests 05/13/19 05/13/19 05:03 05:03 Hgb 8.5 L Creatinine 1.17 - Imaging and Cardiology Chest Xray: report reviewed Echo: report reviewed Cardiac cath: report reviewed - EKG Interpretation EKG results cardiology: other (Telemetry reviewed with average HR previous 12 hours noted to be 66, paced rhythm.) Consult Discharge Plan - Plan [facility]errals: [facility] [Primary Care Provider] -
[2019-05-13] MEDS ORDERED: Nitroglycerin 0.4 MG TAB.SUBL SL PRN (11:45)
--- NOTE | 2019-05-13 20:04 | Internal Med Progress Note ---
Hospitalist Progress Note - Encounter Date of Encounter: 05/13/19 Time of Encounter: 14:30 - Subjective Interval History: Mr Edmonds is status post left left heart catheter yesterday. His Elise was at his bedside she could be reached at [phone] GEN: Denies fever, chills or malaise HEENT: Denies headache blurriness, or dysphagia RESP: Denies SOB or cough CV: Denies chest pain or palpitations GI: Denies Nausea, vomiting, diarrhea or constipation Reviewed current in hospital medications with modifications see orders Reviewed Routine labs - Exam Vitals: Temp Pulse Resp BP Pulse Ox 98.8 F 71 20 114/75 88 05/13/19 16:01 05/13/19 16:05/13/19 16:05/13/19 16:05/13/19 16:01 Exam: GEN: Obese male NAD, A&O x 3, Pleasant and conversant at his bedside SKIN: [place] warm acyanotic not jaundice HEART: RRR, no murmurs LUNGS: CTA no wheeze or crackles, overall non labored ABDOMEN; Soft, non tender or distended, BS x 4 normactive EXT: No LE edema, Pedal pulses 1+, radial pulses 2+ PSYCH: Mood and affect is appropriate - Assessment and Plan (1) Type 2 diabetes mellitus Current Visit: Yes Status: Chronic Assessment and Plan: Was on metformin which is currently held, with insulin per protocol check A1c in the morning (2) NSTEMI (non-ST elevated myocardial infarction) Current Visit: Yes Status: Acute Assessment and Plan: Status post left heart cath, stable postoperatively 1 plan per cardiology (3) Acute and chronic respiratory failure with hypoxia Current Visit: No Status: Acute Assessment and Plan: He is back at baseline oxygen of 6 L (4) CAD (coronary artery disease) Current Visit: No Status: Chronic Assessment and Plan: Status post left Heart Cath, on high intensity statin, aspirin and beta lio (5) COPD (chronic obstructive pulmonary disease) Current Visit: Yes Status: Chronic Assessment and Plan: DuoNeb as needed (6) BERNIE on CPAP Current Visit: Yes Status: Chronic Assessment and Plan: He is compliant with his CPAP continue to encourage CPAP (7) Obesity (BMI 30-39.9) Current Visit: No Status: Chronic Assessment and Plan: Continue to encourage lifestyle modification diet and exercise, he reports dyspnea on exertion easily will check TSH (8) DVT prophylaxis Current Visit: Yes Status: Acute Assessment and Plan: Currently on heparin drip - Time Spent with Patient Total time spent is greater than 50% in coordination of care (as documented) at patient's floor/unit and/or counseling patient: Internal Medicine: Result - Labs CBC & Chem 7: 05/13/19 05:03 05/13/19 05:03 Labs: Short CBC 05/13/19 Range/Units 05:03 WBC 6.3 (4.3-11.1) K/mcL Hgb 8.5 L (12.9-16.9) g/dL Hct 26.8 L (37.5-50.1) % Plt Count 139 L (140-400) K/mcL BMP 05/13/19 05:03 Sodium 142 Potassium 3.9 Chloride 104 Carbon Dioxide 30 H BUN 40 H Creatinine 1.17 Glucose 145 H Calcium 8.9 Cardiac Enzymes 05/13/19 Range/Units 05:03 Troponin I 0.82 H* (< 0.04) ng/mL - ABG Interpretation ABG results: PT/INR, D-dimer PT 11.4 Seconds (9.4-12.1) 05/12/19 06:56 Consult Discharge Plan - Plan Referrals: [facility] [Primary Care Provider] - (1) Type 2 diabetes mellitus Qualifiers: Diabetes mellitus intermediate card tender insulin use: without skilled nursing use Diabetes mellitus complication status: without complication Qualified Code(s): E11.9 - Type 2 diabetes mellitus without complications (4) CAD (coronary artery disease) Qualifiers: Coronary Disease-Associated Artery/Lesion type: [place] artery [place] vs. transplanted heart: [place] heart Associated angina: without angina Qualified Code(s): I25.10 - Atherosclerotic heart disease of [place] coronary artery without angina pectoris (5) COPD (chronic obstructive pulmonary disease) Qualifiers: COPD type: unspecified COPD Qualified Code(s): J44.9 - Chronic obstructive pulmonary disease, unspecified
[2019-05-13] MEDS ORDERED: Dextrose Gel 15 GM/37.5 ML TUBE PO PRN ×2 (20:06)
[2019-05-13] MEDS ORDERED: D5% in Water 1,000 ML IVC PRN (20:06)
[2019-05-13] MEDS ORDERED: *HR* Dextrose 50 % in Water (Syg) 50 ML SYRINGE IVP PRN (20:06)
[2019-05-13] MEDS ORDERED: Insulin LISPRO 300 UNITS/3 ML VIAL SQ SCH (21:00)
[2019-05-13] MEDS: Ipratropium/Albuterol Neb 3 ML IH PRN (22:23)
[2019-05-14] MEDS: Ipratropium/Albuterol Neb 3 ML IH PRN (04:17)
[2019-05-14 06:23] LABS: Hematocrit 28.2 % (37.5-50.1); Mean Corpuscular HGB Conc 31.9 g/dL (31.6-35.5); Mean Corpuscular Hemoglobin 27.4 pg (28.0-33.3); Mean Platelet Volume 11.6 fL (9.4-12.4); Platelet Count 159 K/mcL (140-400); Red Blood Count 3.28 M/mcL (4.19-5.50); Red Cell Distribution Width 19.2 % (11.5-14.5)
[2019-05-14 06:38] VITALS: BP 134/84
[2019-05-14 06:43] LABS: Magnesium 2.1 mg/dL (1.6-2.6)
[2019-05-14 06:47] LABS: BUN/Creatinine Ratio 33 (6-26); Blood Urea Nitrogen 42 mg/dL (8-23); Calcium 9.2 mg/dL (8.6-10.3); Carbon Dioxide 28 mEq/L (23-29); Chloride 103 mEq/L (98-107); Glucose 137 mg/dL (70-105); Osmolality,Calculated 307 (280-300); Potassium 4.1 mEq/L (3.5-5.1); Sodium 142 mEq/L (136-145); eGFR For African Americans > 60 (> 60); eGFR For Non-African Americans 55 (> 60)
[2019-05-14 06:53] LABS: Thyroid Stimulating Hormone 2.998 mcIU/mL (0.340-5.600)
[2019-05-14 07:00] LABS: Lymphocytes # 1.3 K/mcL (0.6-4.6); Monocytes # 0.5 K/mcL (0.0-1.3); Neutrophils # 6.2 K/mcL (1.6-8.9)
[2019-05-14 07:02] LABS: Platelet Estimate Normal (Normal); Reactive Lymphocytes Present (Not Present)
[2019-05-14] MEDS ORDERED: Insulin LISPRO 300 UNITS/3 ML VIAL SQ SCH ×2 (07:30)
[2019-05-14] MEDS: Budesonide/Formoterol 80/4.5 1 PUFF INH IH SCH (08:03)
[2019-05-14] MEDS: Tiotropium 18 MCG inhalation IH SCH (08:03)
--- NOTE | 2019-05-14 08:05 | Discharge Summary ---
- NOTES TO OUTPATIENT PROVIDER Notes to Outpatient Provider: Posthospital discharge for acute coronary syndrome patient will need to be on aspirin atorvastatin beta lio, per cardiology holding off on Plavix at this time given his anemia. He will need outpatient cardiology follow-up to reevaluate need for Plavix. Given his anemia he may need outpatient workup with colonoscopy Date of Encounter: 05/14/19 Time of Encounter: 08:03 - Discharge Diagnosis (1) Type 2 diabetes mellitus Priority: Primary Status: Chronic Assessment and Plan: Was on metformin which is currently held, we will resume a discharge serum creatinine is 1.29 Qualifiers: Diabetes mellitus exterminator helper termite insulin use: without exterminator helper termite use Diabetes mellitus complication status: without complication Qualified Code(s): E11.9 - Type 2 diabetes mellitus without complications (2) NSTEMI (non-ST elevated myocardial infarction) Priority: Primary Status: Acute Assessment and Plan: Status post left heart cath, aspirin statin and beta lio, Plavix currently with held due to his anemia patient would need outpatient follow-up with cardiology to reevaluate need. Given his anemia he might need workup with outpatient colonoscopy (3) Acute and chronic respiratory failure with hypoxia Priority: Primary Status: Acute Assessment and Plan: He is back at baseline oxygen of 6 L, TSH was unremarkable (4) CAD (coronary artery disease) Priority: Primary Status: Chronic Assessment and Plan: Status post left Heart Cath, on high intensity statin, aspirin and beta lio Qualifiers: Coronary Disease-Associated Artery/Lesion type: [place] artery [place] vs. transplanted heart: [place] heart Associated angina: without angina Qualified Code(s): I25.10 - Atherosclerotic heart disease of [place] coronary artery without angina pectoris (5) COPD (chronic obstructive pulmonary disease) Priority: Secondary Status: Chronic Assessment and Plan: DuoNeb as needed, chronic inhalers Qualifiers: COPD type: unspecified COPD Qualified Code(s): J44.9 - Chronic obstructive pulmonary disease, unspecified (6) BERNIE on CPAP Priority: Primary Status: Chronic Assessment and Plan: He is compliant with his CPAP continue to encourage CPAP (7) Obesity (BMI 30-39.9) Priority: Secondary Status: Chronic Assessment and Plan: Continue to encourage lifestyle modification diet and exercise, he reports dyspnea on exertion easily will check TSH (8) DVT prophylaxis Priority: Secondary Status: Acute Assessment and Plan: Discharge today Hospital course: Mr. Edmonds is a 69 year old male was hospitalized for acute coronary syndrome had a left heart catheter, patient was stable post procedure. Plan is to continue to optimize his medical treatment as aforementioned. he was noted to have anemia will need outpatient workup with colonoscopy. Discharge discussed with: patient, family - Time Spent with Patient Total time spent providing and/or coordinating discharge services: 36 mins Specific discharge activities: Please take all medications as prescribed and adhere to the treatment plan. You need to follow-up after PCP to schedule outpatient colonoscopy - Discharge Medications Prescriptions: New Aspirin 81 mg PO DAILY #30 tab.chew Atorvastatin Calcium [Lipitor] 80 mg PO HS #30 tab Nitroglycerin 0.4 mg SL Q5MPRN PRN #25 tab.subl PRN Reason: Chest Pain Tiotropium [Spiriva] 18 mcg IH DAILY@0700 30 Days #1 packet Budesonide/Formoterol 80/4.5 [Symbicort 80/4.5] 2 puff IH BIDR 30 Days #1 packet Continued Sertraline [Zoloft] 200 mg PO HS metFORMIN [Glucophage] 1,000 mg PO BID Cholecalciferol (D-3) [Vitamin D] 1,000 unit PO DAILY Docusate [Colace] 200 mg PO DAILY PRN PRN Reason: Constipation Albuterol Sulfate [Proventil Inhaler] 2 puff PO Q4H PRN PRN Reason: Shortness Of Breath Baclofen 5 mg PO BID Ferrous Sulfate [Iron] 325 mg PO TID Gabapentin [Neurontin] 100 mg PO QID Magnesium Oxide [Mag-Oxide Magnesium] 400 mg PO BID Montelukast [Singulair] 10 mg PO DAILY Pantoprazole Sodium [Protonix] 40 mg PO DAILY Polyvinyl Alcohol [Artificial Tears] 1 drop BOTH EYES TID Potassium Chloride [Klor-Con 10] 20 meq PO DAILY Roflumilast [Daliresp] 500 mcg PO DAILY Torsemide [Demadex] 20 mg PO BID Acetaminophen [Tylenol] 500 mg PO Q6HR PRN PRN Reason: Mild Pain Capsaicin 0.025% [Trixaicin] 1 appl TP 5XD Ipratropium/Albuterol Neb [Duoneb] 3 ml IH Q4H PRN PRN Reason: Shortness Of Breath Losartan [Cozaar] 25 mg PO DAILY Metoprolol Tartrate [Lopressor] 50 mg PO BID Discontinued Simvastatin [Zocor] 80 mg PO HS Home Medications: Sertraline [Zoloft] 200 mg PO HS 08/12/16 [History] metFORMIN [Glucophage] 1,000 mg PO BID 08/12/16 [History] Cholecalciferol (D-3) [Vitamin D] 1,000 unit PO DAILY 04/28/17 [History] Docusate [Colace] 200 mg PO DAILY PRN 04/28/17 [History] Albuterol Sulfate [Proventil Inhaler] 2 puff PO Q4H PRN 12/21/18 [History] Baclofen 5 mg PO BID 12/21/18 [History] Ferrous Sulfate [Iron] 325 mg PO TID 12/21/18 [History] Gabapentin [Neurontin] 100 mg PO QID 12/21/18 [History] Magnesium Oxide [Mag-Oxide Magnesium] 400 mg PO BID 12/21/18 [History] Montelukast [Singulair] 10 mg PO DAILY 12/21/18 [History] Pantoprazole Sodium [Protonix] 40 mg PO DAILY 12/21/18 [History] Polyvinyl Alcohol [Artificial Tears] 1 drop BOTH EYES TID 12/21/18 [History] Potassium Chloride [Klor-Con 10] 20 meq PO DAILY 12/21/18 [History] Roflumilast [Daliresp] 500 mcg PO DAILY 12/21/18 [History] Torsemide [Demadex] 20 mg PO BID 12/21/18 [History] Acetaminophen [Tylenol] 500 mg PO Q6HR PRN 05/13/19 [History] Capsaicin 0.025% [Trixaicin] 1 appl TP 5XD 05/13/19 [History] Ipratropium/Albuterol Neb [Duoneb] 3 ml IH Q4H PRN 05/13/19 [History] Losartan [Cozaar] 25 mg PO DAILY 05/13/19 [History] Metoprolol Tartrate [Lopressor] 50 mg PO BID 05/13/19 [History] Aspirin 81 mg PO DAILY #30 tab.chew 05/14/19 [Rx] Atorvastatin Calcium [Lipitor] 80 mg PO HS #30 tab 05/14/19 [Rx] Budesonide/Formoterol 80/4.5 [Symbicort 80/4.5] 2 puff IH BIDR 30 Days #1 packet 05/14/19 [Rx] Nitroglycerin 0.4 mg SL Q5MPRN PRN #25 tab.subl 05/14/19 [Rx] Tiotropium [Spiriva] 18 mcg IH DAILY@0700 30 Days #1 packet 05/14/19 [Rx] Allergies/Adverse Reactions: Allergy/AdvReac Type Severity Reaction Status Date / Time azithromycin [From Zithromax] Allergy Hives Verified 05/13/19 11:02 Date of admission: 05/12/19 08:51 Primary care physician: PCP LULY Consults: 05/12/19 07:43 Consult to Cardiology [CONS] Routine Comment: Consulting Provider: Cardiology Vicki Reason for Consult: nstemi Call Completed: Yes 05/13/19 11:46 Consult to Cardiac Rehabilitation-Phase1 [CONS] Routine Comment: Reason for Consult: NSTEMI Call Completed: No Discharging clinician: Donald Gamboa Anticipated date of discharge: 05/14/19 - Constitutional Vitals: Temp Pulse Resp BP Pulse Ox 98.1 F 63 18 134/84 90 05/14/19 06:35 05/14/19 06:35 05/14/19 06:35 05/14/19 06:35 05/14/19 06:35 Exam: GEN: Obese male NAD, A&O x 3, laying comfortably in bed this morning using his CPAP Pleasant and conversant at his bedside SKIN: [place] warm acyanotic not jaundice HEART: RRR, no murmurs LUNGS: CTA no wheeze or crackles, overall non labored ABDOMEN; Soft, non tender or distended, BS x 4 normactive EXT: No LE edema, Pedal pulses 1+, radial pulses 2+ PSYCH: Mood and affect is appropriate - Patient Status Disposition: Home, Self-Care Condition: Fair Overall status at discharge: patient is back to baseline - Discharge Instructions Instructions: Anemia (GEN), Diabetes Mellitus Type 2 in Adults (DC) [facility]: [facility] [[facility] Care Provider[facility] - - Diet and Activity Activity: resume usual activities as tolerated Diet: diabetic diet, low fat, low cholesterol, low salt diet
[2019-05-14 08:37] LABS: Estimated Average Glucose 146 mg/dl
[2019-05-14] MEDS: Aspirin 81 MG TAB.CHEW PO SCH (09:19)
[2019-05-14] MEDS: predniSONE 20 MG TABLET PO SCH (09:20)
[2019-05-14] MEDS: Roflumilast [Daliresp] 500 MCG PO SCH (09:20)
[2019-05-14] MEDS: Gabapentin 100 MG CAPSULE PO SCH (09:20)
[2019-05-14] MEDS: Artificial Tears SOLN 15 ML BOTTLE BOTH EYES SCH (09:20)
--- NOTE | 2019-05-14 22:31 | Electrocardiograph Report ---
[address] [place], [place] [address] Test Date: 2019-05-12 Pat Name: Sarabjit Edmonds Department: [id number] Room: 2NE23 Gender: M Informatics Physician Liaison: : 1950 Requested By: Vanesa Fonseca Order Number: [id number] Reading MD: Charles Burch Measurements Intervals [place] Rate: 72 P: 60 MO: 159 QRS: 87 QRSD: 151 T: -85 QT: 418 QTc: 458 Interpretive Statements Sinus rhythm Right bundle branch block Inferior infarct, age indeterminate Electronically Signed On 05-14-2019 22:29:53 EDT by Charles Burch
== END 2019-05-14 09:43 | disposition home or self-care (01) | DRG 280 ==
LOC: SUATTDRO → EMEROOARM 05:42 → 2NENU 05:42 → SUATTDRO 08:51 → OBSVTOIN 08:51 → 2NENU 09:51
PROVIDERS: ADMIT Internal Medicine; ATTEND Pharmacist

== ENCOUNTER 2019-09-24 14:31 | Inpatient (IN) ==
[2019-09-24 15:30] LABS: Basophils % 0.3 %; Hematocrit 23.4 % (37.5-50.1); Hemoglobin 7.4 g/dL (12.9-16.9); Immature Granulocytes % 1.5 % (0-4); Lymphocytes # 0.6 K/mcL (0.6-4.6); Lymphocytes % 10.8 %; Mean Corpuscular HGB Conc 31.6 g/dL (31.6-35.5); Mean Corpuscular Volume 91.8 fL (83.0-100.0); Mean Platelet Volume 12.2 fL (9.4-12.4); Monocytes # 0.6 K/mcL (0.0-1.3); Monocytes % 10.5 %; Neutrophils # 4.5 K/mcL (1.6-8.9); Platelet Count 218 K/mcL (140-400); Red Blood Count 2.55 M/mcL (4.19-5.50); Red Cell Distribution Width 18.1 % (11.5-14.5); Segmented Neutrophils % 76.9 %; White Blood Count 5.9 K/mcL (4.3-11.1)
[2019-09-24 15:32] LABS: INR 1.1
[2019-09-24 15:35] LABS: Activated Partial Thrombo Time 28.3 Seconds (26.0-36.0)
[2019-09-24 15:47] LABS: BUN/Creatinine Ratio 24 (6-26); Blood Urea Nitrogen 28 mg/dL (8-23); Calcium 8.7 mg/dL (8.6-10.3); Carbon Dioxide 30 mEq/L (23-29); Chloride 103 mEq/L (98-107); Glucose 121 mg/dL (70-105); Osmolality,Calculated 299 (280-300); Potassium 3.8 mEq/L (3.5-5.1); Sodium 141 mEq/L (136-145); eGFR For African Americans > 60 (> 60); eGFR For Non-African Americans > 60 (> 60)
[2019-09-24] MEDS ORDERED: Naloxone 0.4 MG/ML INJ IVP PRN (17:25)
[2019-09-24] MEDS ORDERED: SODIUM CHLORIDE/NAHCO3/KCL/PEG 4,000 ML SOLN.RECON PO ONE (17:34)
[2019-09-24] MEDS ORDERED: Ipratropium/Albuterol Neb 3 ML IH PRN (17:36)
[2019-09-24] MEDS ORDERED: 0.9 % Sodium Chloride 250 ML ONE (18:40)
[2019-09-24] MEDS: Azithromycin 250 MG TABLET PO SCH (19:00)
[2019-09-24] MEDS: Pantoprazole 40 MG VIAL IVP SCH (19:00)
[2019-09-24] MEDS: Budesonide/Formoterol 80/4.5 1 PUFF INH IH SCH (20:13)
[2019-09-24] MEDS: Gabapentin 100 MG CAPSULE PO SCH (22:47)
[2019-09-24] MEDS: Insulin LISPRO 300 UNITS/3 ML VIAL SQ SCH (22:47)
[2019-09-25 01:33] LABS: Hematocrit 24.2 % (37.5-50.1); Hemoglobin 7.5 g/dL (12.9-16.9)
[2019-09-25 01:34] LABS: Basophils % 0.4 %; Hematocrit 24.3 % (37.5-50.1); Hemoglobin 7.8 g/dL (12.9-16.9); Immature Granulocytes % 1.6 % (0-4); Lymphocytes # 1.1 K/mcL (0.6-4.6); Mean Corpuscular HGB Conc 32.1 g/dL (31.6-35.5); Mean Corpuscular Hemoglobin 28.5 pg (28.0-33.3); Mean Corpuscular Volume 88.7 fL (83.0-100.0); Mean Platelet Volume 10.9 fL (9.4-12.4); Monocytes # 0.9 K/mcL (0.0-1.3); Monocytes % 17.1 %; Neutrophils # 3.1 K/mcL (1.6-8.9); Platelet Count 175 K/mcL (140-400); Red Blood Count 2.74 M/mcL (4.19-5.50); Red Cell Distribution Width 17.2 % (11.5-14.5); Segmented Neutrophils % 59.9 %; White Blood Count 5.2 K/mcL (4.3-11.1)
[2019-09-25 01:48] LABS: BUN/Creatinine Ratio 25 (6-26); Blood Urea Nitrogen 25 mg/dL (8-23); Calcium 8.5 mg/dL (8.6-10.3); Carbon Dioxide 28 mEq/L (23-29); Chloride 103 mEq/L (98-107); Glucose 86 mg/dL (70-105); Osmolality,Calculated 290 (280-300); Potassium 3.6 mEq/L (3.5-5.1); Sodium 138 mEq/L (136-145); eGFR For African Americans > 60 (> 60); eGFR For Non-African Americans > 60 (> 60)
[2019-09-25] MEDS: Pantoprazole 40 MG VIAL IVP SCH ×2 (06:16→17:18)
[2019-09-25] MEDS: Budesonide/Formoterol 80/4.5 1 PUFF INH IH SCH ×2 (07:22→20:04)
[2019-09-25] MEDS: Insulin LISPRO 300 UNITS/3 ML VIAL SQ SCH ×4 (08:04→22:11)
[2019-09-25] MEDS: Gabapentin 100 MG CAPSULE PO SCH ×4 (09:24→22:15)
[2019-09-25] MEDS ORDERED: *HR* FentaNYL (PF) 100 MCG/2 ML VIAL IVP ONE (12:17)
[2019-09-25] MEDS ORDERED: *HR* Midazolam HCl 2 MG/2 ML VIAL IVP ONE (12:17)
[2019-09-25] MEDS ORDERED: Propofol 500 MG/50 ML INFUS..BTL ONE (13:45)
[2019-09-25] MEDS ORDERED: Lidocaine -MPF 2% 2 ML VIAL ONE (13:48)
[2019-09-25] MEDS ORDERED: *HR* Dextrose 50 % in Water (Syg) 50 ML SYRINGE IVP PRN (14:45)
[2019-09-25] MEDS ORDERED: D5% in Water 1,000 ML IVC PRN (14:45)
[2019-09-25] MEDS ORDERED: Dextrose Gel 15 GM/37.5 ML TUBE PO PRN ×2 (14:45)
[2019-09-25 22:17] LABS: Hemoglobin 7.4 g/dL (12.9-16.9); Mean Corpuscular HGB Conc 32.2 g/dL (31.6-35.5); Mean Corpuscular Hemoglobin 28.6 pg (28.0-33.3); Mean Corpuscular Volume 88.8 fL (83.0-100.0); Mean Platelet Volume 11.3 fL (9.4-12.4); Platelet Count 174 K/mcL (140-400); Red Blood Count 2.59 M/mcL (4.19-5.50); Red Cell Distribution Width 17.3 % (11.5-14.5); White Blood Count 4.6 K/mcL (4.3-11.1)
[2019-09-26 04:58] LABS: BUN/Creatinine Ratio 16 (6-26); Blood Urea Nitrogen 15 mg/dL (8-23); Calcium 8.8 mg/dL (8.6-10.3); Carbon Dioxide 30 mEq/L (23-29); Chloride 105 mEq/L (98-107); Glucose 98 mg/dL (70-105); Osmolality,Calculated 297 (280-300); Potassium 3.9 mEq/L (3.5-5.1); Sodium 143 mEq/L (136-145); eGFR For African Americans > 60 (> 60); eGFR For Non-African Americans > 60 (> 60)
[2019-09-26] MEDS: Pantoprazole 40 MG VIAL IVP SCH ×2 (06:32→18:17)
[2019-09-26] MEDS: Budesonide/Formoterol 80/4.5 1 PUFF INH IH SCH ×2 (07:39→21:58)
[2019-09-26] MEDS: Tiotropium 18 MCG inhalation IH SCH (07:39)
[2019-09-26] MEDS: Insulin LISPRO 300 UNITS/3 ML VIAL SQ SCH ×4 (10:19→20:36)
[2019-09-26] MEDS: Gabapentin 100 MG CAPSULE PO SCH ×4 (10:20→19:39)
[2019-09-26] MEDS ORDERED: Iron Sucrose Complex 400 MG in 0.9 % Sodium Chloride 250 ML IVPB ONE (13:40)
[2019-09-26] MEDS ORDERED: *HR* FentaNYL (PF) 100 MCG/2 ML VIAL IVP ONE (13:51)
[2019-09-26 13:53] LABS: Hematocrit 25.8 % (37.5-50.1); Hemoglobin 7.9 g/dL (12.9-16.9); Mean Corpuscular HGB Conc 30.6 g/dL (31.6-35.5); Mean Corpuscular Hemoglobin 28.4 pg (28.0-33.3); Mean Corpuscular Volume 92.8 fL (83.0-100.0); Mean Platelet Volume 11.6 fL (9.4-12.4); Platelet Count 188 K/mcL (140-400); Red Blood Count 2.78 M/mcL (4.19-5.50); Red Cell Distribution Width 17.5 % (11.5-14.5); White Blood Count 4.7 K/mcL (4.3-11.1)
[2019-09-26] MEDS ORDERED: 0.9 % Sodium Chloride 250 ML IVC SCH (15:30)
[2019-09-26] MEDS: Azithromycin 250 MG TABLET PO SCH (18:21)
[2019-09-27] MEDS: Pantoprazole 40 MG VIAL IVP SCH ×2 (05:08→16:48)
[2019-09-27 06:56] LABS: Hematocrit 28.7 % (37.5-50.1); Hemoglobin 9.3 g/dL (12.9-16.9); Mean Corpuscular HGB Conc 32.4 g/dL (31.6-35.5); Mean Corpuscular Hemoglobin 28.5 pg (28.0-33.3); Mean Platelet Volume 11.8 fL (9.4-12.4); Platelet Count 177 K/mcL (140-400); Red Blood Count 3.26 M/mcL (4.19-5.50); Red Cell Distribution Width 16.8 % (11.5-14.5); White Blood Count 5.4 K/mcL (4.3-11.1)
[2019-09-27 07:13] VITALS: BP 122/75
[2019-09-27 07:13] LABS: BUN/Creatinine Ratio 13 (6-26); Blood Urea Nitrogen 12 mg/dL (8-23); Calcium 8.6 mg/dL (8.6-10.3); Carbon Dioxide 27 mEq/L (23-29); Chloride 104 mEq/L (98-107); Glucose 110 mg/dL (70-105); Osmolality,Calculated 294 (280-300); Potassium 3.8 mEq/L (3.5-5.1); Sodium 142 mEq/L (136-145); eGFR For African Americans > 60 (> 60); eGFR For Non-African Americans > 60 (> 60)
[2019-09-27] MEDS: Budesonide/Formoterol 80/4.5 1 PUFF INH IH SCH (08:14)
[2019-09-27] MEDS: Tiotropium 18 MCG inhalation IH SCH (08:14)
[2019-09-27] MEDS: Gabapentin 100 MG CAPSULE PO SCH ×3 (09:00→16:48)
[2019-09-27] MEDS: Insulin LISPRO 300 UNITS/3 ML VIAL SQ SCH ×3 (09:01→16:54)
[2019-09-27 15:49] LABS: Hematocrit 30.6 % (37.5-50.1); Hemoglobin 9.7 g/dL (12.9-16.9)
== END 2019-09-27 17:21 | disposition short-term general hospital (02) | DRG 988 ==
LOC: 3ANU 14:31 → EMEROOARM 14:31 → SUATTDRO 17:29 → 3ANU 18:07
PROVIDERS: ADMIT Internal Medicine; ATTEND Family Medicine

== ENCOUNTER 2020-11-17 15:57 | Inpatient (IN) ==
[2020-11-17] MEDS ORDERED: Isovue-370 500 ML BOTTLE IVP ONE (16:07)
[2020-11-17] MEDS ORDERED: *HR* FentaNYL (PF) 100 MCG/2 ML VIAL IVP ONE (16:09)
[2020-11-17 16:23] LABS: Basophils % 0.2 %; Hemoglobin 10.4 g/dL (12.9-16.9)
[2020-11-17 16:25] LABS: Hematocrit 33.8 % (37.5-50.1); Immature Granulocytes % 1.3 % (0-4); Immature Platelets 13.3 % (1.1-6.1); Lymphocytes # 0.8 K/mcL (0.6-4.6); Lymphocytes % 8.3 %; Mean Corpuscular HGB Conc 30.8 g/dL (31.6-35.5); Mean Corpuscular Hemoglobin 26.6 pg (28.0-33.3); Mean Corpuscular Volume 86.4 fL (83.0-100.0); Mean Platelet Volume 11.7 fL (9.4-12.4); Monocytes # 2.5 K/mcL (0.0-1.3); Monocytes % 27.3 %; Neutrophils # 5.7 K/mcL (1.6-8.9); Platelet Count 139 K/mcL (140-400); Red Blood Count 3.91 M/mcL (4.19-5.50); Red Cell Distribution Width 19.9 % (11.5-14.5); Segmented Neutrophils % 62.9 %; White Blood Count 9.1 K/mcL (4.3-11.1)
[2020-11-17 16:32] LABS: INR 1.2; Prothrombin Time 13.3 Seconds (9.4-12.1)
[2020-11-17 16:35] LABS: Activated Partial Thrombo Time 28.9 Seconds (26.0-36.0)
[2020-11-17 16:45] LABS: Alanine Aminotransferase 20 Units/L (7-52); Albumin 4.1 g/dL (3.5-5.7); Albumin/Globulin Ratio 1.8 (1.1-2.2); Alkaline Phosphatase 63 Units/L (34-104); Aspartate Amino Transferase 24 Units/L (13-39); BUN/Creatinine Ratio 19 (6-26); Bilirubin,Total 0.5 mg/dL (0.3-1.0); Blood Urea Nitrogen 27 mg/dL (8-23); Calcium 8.6 mg/dL (8.6-10.3); Carbon Dioxide 24 mEq/L (23-29); Chloride 104 mEq/L (98-107); Globulin 2.3 g/dL (2.4-3.5); Glucose 118 mg/dL (70-105); Osmolality,Calculated 294 (280-300); Potassium 4.3 mEq/L (3.5-5.1); Sodium 139 mEq/L (136-145); Total Protein 6.4 g/dL (6.4-8.9); eGFR For African Americans > 60 (> 60); eGFR For Non-African Americans 50 (> 60)
[2020-11-17 16:47] LABS: Troponin I 0.06 ng/mL (< 0.04)
[2020-11-17 16:48] LABS: Platelet Estimate Normal (Normal)
[2020-11-17] MEDS ORDERED: Naloxone 0.4 MG/ML INJ IVP PRN ×2 (19:32→22:28)
[2020-11-17 22:02] LABS: Influenza A PCR Negative (Negative); Influenza B PCR Negative (Negative); Resp. Syncytial Virus PCR Negative (Negative)
[2020-11-17 22:08] LABS: SARS-CoV-2 by PCR (In House) Negative (Negative)
[2020-11-17] MEDS ORDERED: Ipratropium/Albuterol Neb 3 ML IH PRN (22:14)
[2020-11-17] MEDS ORDERED: Albuterol 2.5 MG/3 ML NEBULIZER IH PRN (22:14)
[2020-11-17] MEDS ORDERED: D5% in Water 1,000 ML IVC PRN (22:25)
[2020-11-17] MEDS ORDERED: *HR* Dextrose 50 % in Water (Vial) 50 ML VIAL IVP PRN (22:25)
[2020-11-17] MEDS ORDERED: Dextrose Gel 15 GM/37.5 ML TUBE PO PRN ×2 (22:25)
[2020-11-17] MEDS ORDERED: Perflutren Lipid Microsphere 1.3 ML in 0.9 % Sodium Chloride 8.7 ML IVP PRN (22:32)
[2020-11-17] MEDS: Budesonide/Formoterol 80/4.5 1 PUFF INH IH SCH (22:49)
[2020-11-17] MEDS: Aspirin 81 MG TAB.CHEW PO SCH (22:57)
[2020-11-18] MEDS: *HR* Heparin 5,000 UNIT/ML VIAL SQ SCH ×2 (05:22→18:07)
[2020-11-18 05:54] LABS: Basophils % 0.3 %; Hematocrit 30.5 % (37.5-50.1); Hemoglobin 9.5 g/dL (12.9-16.9); Immature Granulocytes % 1.2 % (0-4); Immature Platelets 8.6 % (1.1-6.1); Lymphocytes # 0.7 K/mcL (0.6-4.6); Lymphocytes % 9.7 %; Mean Corpuscular HGB Conc 31.1 g/dL (31.6-35.5); Mean Corpuscular Hemoglobin 26.6 pg (28.0-33.3); Mean Corpuscular Volume 85.4 fL (83.0-100.0); Mean Platelet Volume 11.4 fL (9.4-12.4); Monocytes # 2.2 K/mcL (0.0-1.3); Monocytes % 30.3 %; Neutrophils # 4.2 K/mcL (1.6-8.9); Platelet Count 125 K/mcL (140-400); Red Blood Count 3.57 M/mcL (4.19-5.50); Red Cell Distribution Width 19.5 % (11.5-14.5); Segmented Neutrophils % 58.5 %; White Blood Count 7.2 K/mcL (4.3-11.1)
[2020-11-18 05:57] LABS: BUN/Creatinine Ratio 23 (6-26); Blood Urea Nitrogen 23 mg/dL (8-23); Calcium 8.5 mg/dL (8.6-10.3); Carbon Dioxide 25 mEq/L (23-29); Chloride 105 mEq/L (98-107); Glucose 96 mg/dL (70-105); Osmolality,Calculated 292 (280-300); Potassium 3.9 mEq/L (3.5-5.1); Sodium 139 mEq/L (136-145); eGFR For African Americans > 60 (> 60); eGFR For Non-African Americans > 60 (> 60)
[2020-11-18 06:10] LABS: Anisocytosis 1+ (Not Present); Microcytosis Present (Not Present)
[2020-11-18 06:11] LABS: Platelet Estimate Slight Decrease (Normal)
[2020-11-18] MEDS: Budesonide/Formoterol 80/4.5 1 PUFF INH IH SCH ×2 (07:59→19:50)
[2020-11-18] MEDS: Isosorbide MONOnitrate (24 HR) 30 MG TAB.ER.24H PO SCH (08:03)
[2020-11-18] MEDS: Aspirin 81 MG TAB.CHEW PO SCH (08:03)
[2020-11-18] MEDS: Insulin LISPRO 300 UNITS/3 ML VIAL SUBQ SCH ×3 (08:04→16:33)
[2020-11-18] MEDS ORDERED: Furosemide 40 MG/4 ML VIAL IVP ONE (08:41)
[2020-11-18] MEDS ORDERED: *HR* HYDROcodone/Acet 5/325 mg TABLET PO PRN (10:13)
[2020-11-18] MEDS: Tiotropium 10 INH DOSE IH SCH (11:22)
[2020-11-18] MEDS: Gabapentin 300 MG CAPSULE PO SCH ×2 (15:35→19:44)
[2020-11-18] MEDS: Acetaminophen 325 MG TABLET PO PRN (18:07)
[2020-11-18] MEDS: Furosemide 40 MG/4 ML VIAL IVP SCH (19:44)
[2020-11-19 03:44] LABS: Basophils % 0.3 %; Immature Granulocytes % 1.4 % (0-4); Red Cell Distribution Width 19.6 % (11.5-14.5)
[2020-11-19 03:46] LABS: Eosinophils % 0.1 %; Hematocrit 34.6 % (37.5-50.1); Hemoglobin 10.8 g/dL (12.9-16.9); Immature Platelets 11.8 % (1.1-6.1); Lymphocytes # 0.8 K/mcL (0.6-4.6); Lymphocytes % 10.8 %; Mean Corpuscular HGB Conc 31.2 g/dL (31.6-35.5); Mean Corpuscular Hemoglobin 26.1 pg (28.0-33.3); Mean Corpuscular Volume 83.6 fL (83.0-100.0); Monocytes # 2.4 K/mcL (0.0-1.3); Monocytes % 33.5 %; Neutrophils # 3.9 K/mcL (1.6-8.9); Platelet Count 130 K/mcL (140-400); Red Blood Count 4.14 M/mcL (4.19-5.50); Segmented Neutrophils % 53.9 %; White Blood Count 7.2 K/mcL (4.3-11.1)
[2020-11-19 03:57] LABS: BUN/Creatinine Ratio 18 (6-26); Blood Urea Nitrogen 19 mg/dL (8-23); Carbon Dioxide 29 mEq/L (23-29); Chloride 101 mEq/L (98-107); Glucose 105 mg/dL (70-105); Magnesium 1.5 mg/dL (1.6-2.6); Osmolality,Calculated 293 (280-300); Potassium 3.4 mEq/L (3.5-5.1); Sodium 140 mEq/L (136-145); eGFR For African Americans > 60 (> 60); eGFR For Non-African Americans > 60 (> 60)
[2020-11-19 04:07] LABS: Anisocytosis 2+ (Not Present); Large Platelets Present (Not Present); Platelet Estimate Normal (Normal)
[2020-11-19] MEDS: *HR* Heparin 5,000 UNIT/ML VIAL SQ SCH ×2 (06:07→16:39)
[2020-11-19] MEDS ORDERED: Roflumilast [Daliresp] 500 MCG Tablet PO SCH (09:00)
[2020-11-19] MEDS: Gabapentin 300 MG CAPSULE PO SCH ×3 (09:29→21:02)
[2020-11-19] MEDS: Aspirin 81 MG TAB.CHEW PO SCH ×2 (09:29→10:03)
[2020-11-19] MEDS: Furosemide 40 MG/4 ML VIAL IVP SCH ×2 (09:30→21:03)
[2020-11-19] MEDS: Isosorbide MONOnitrate (24 HR) 30 MG TAB.ER.24H PO SCH (09:30)
[2020-11-19] MEDS: Insulin LISPRO 300 UNITS/3 ML VIAL SUBQ SCH ×3 (09:31→16:39)
[2020-11-19] MEDS: Budesonide/Formoterol 80/4.5 1 PUFF INH IH SCH ×2 (11:21→22:50)
[2020-11-19] MEDS: Tiotropium 10 INH DOSE IH SCH (11:22)
[2020-11-19] MEDS: Metoprolol XL (24 HR) Succ 25 MG TAB.ER.24H PO SCH (21:00)
[2020-11-20 03:07] LABS: BUN/Creatinine Ratio 18 (6-26); Blood Urea Nitrogen 22 mg/dL (8-23); Calcium 9.1 mg/dL (8.6-10.3); Carbon Dioxide 32 mEq/L (23-29); Chloride 101 mEq/L (98-107); Glucose 121 mg/dL (70-105); Osmolality,Calculated 297 (280-300); Potassium 3.7 mEq/L (3.5-5.1); Sodium 141 mEq/L (136-145); eGFR For African Americans > 60 (> 60); eGFR For Non-African Americans 58 (> 60)
[2020-11-20 03:19] LABS: Basophils % 0.3 %; Hematocrit 33.4 % (37.5-50.1); Hemoglobin 10.6 g/dL (12.9-16.9); Immature Granulocytes % 1.6 % (0-4); Immature Platelets 11.4 % (1.1-6.1); Lymphocytes % 12.4 %; Mean Corpuscular HGB Conc 31.7 g/dL (31.6-35.5); Mean Corpuscular Hemoglobin 26.5 pg (28.0-33.3); Mean Corpuscular Volume 83.5 fL (83.0-100.0); Mean Platelet Volume 11.3 fL (9.4-12.4); Monocytes # 2.7 K/mcL (0.0-1.3); Neutrophils # 4.1 K/mcL (1.6-8.9); Platelet Count 137 K/mcL (140-400); Red Cell Distribution Width 19.2 % (11.5-14.5); Segmented Neutrophils % 51.7 %; White Blood Count 7.9 K/mcL (4.3-11.1)
[2020-11-20 03:53] LABS: Anisocytosis 1+ (Not Present); Microcytosis Present (Not Present); Platelet Estimate Slight Decrease (Normal)
[2020-11-20] MEDS: *HR* Heparin 5,000 UNIT/ML VIAL SQ SCH ×2 (06:51→16:54)
[2020-11-20] MEDS: Insulin LISPRO 300 UNITS/3 ML VIAL SUBQ SCH ×3 (07:39→17:00)
[2020-11-20] MEDS: Tiotropium 10 INH DOSE IH SCH (08:07)
[2020-11-20] MEDS: Budesonide/Formoterol 80/4.5 1 PUFF INH IH SCH ×2 (08:08→22:47)
[2020-11-20] MEDS ORDERED: predniSONE 5 MG TABLET PO SCH (09:00)
[2020-11-20] MEDS: Furosemide 40 MG/4 ML VIAL IVP SCH ×2 (09:24→21:45)
[2020-11-20] MEDS: Aspirin 81 MG TAB.CHEW PO SCH (09:26)
[2020-11-20] MEDS: Gabapentin 300 MG CAPSULE PO SCH ×3 (09:26→21:45)
[2020-11-20] MEDS: Metoprolol XL (24 HR) Succ 25 MG TAB.ER.24H PO SCH ×2 (09:26→21:45)
[2020-11-20] MEDS: Isosorbide MONOnitrate (24 HR) 30 MG TAB.ER.24H PO SCH (09:26)
[2020-11-20] MEDS: Ipratropium/Albuterol Neb 3 ML IH SCH ×3 (10:51→22:47)
[2020-11-20] MEDS ORDERED: methylPREDNISolone 125 MG/2 ML VIAL IVP ONE (16:59)
[2020-11-21] MEDS: Ipratropium/Albuterol Neb 3 ML IH SCH ×4 (04:14→22:34)
[2020-11-21 05:52] LABS: Basophils % 0.2 %; Hemoglobin 10.7 g/dL (12.9-16.9)
[2020-11-21 05:54] LABS: Hematocrit 34.4 % (37.5-50.1); Immature Granulocytes % 1.7 % (0-4); Lymphocytes # 0.5 K/mcL (0.6-4.6); Lymphocytes % 8.8 %; Mean Corpuscular HGB Conc 31.1 g/dL (31.6-35.5); Mean Corpuscular Hemoglobin 26.2 pg (28.0-33.3); Mean Corpuscular Volume 84.3 fL (83.0-100.0); Monocytes # 0.5 K/mcL (0.0-1.3); Monocytes % 8.6 %; Neutrophils # 4.2 K/mcL (1.6-8.9); Platelet Count 155 K/mcL (140-400); Red Blood Count 4.08 M/mcL (4.19-5.50); Segmented Neutrophils % 80.7 %; White Blood Count 5.2 K/mcL (4.3-11.1)
[2020-11-21] MEDS: *HR* Heparin 5,000 UNIT/ML VIAL SQ SCH (06:06)
[2020-11-21 06:07] LABS: BUN/Creatinine Ratio 22 (6-26); Blood Urea Nitrogen 26 mg/dL (8-23); Calcium 9.3 mg/dL (8.6-10.3); Carbon Dioxide 30 mEq/L (23-29); Chloride 100 mEq/L (98-107); Glucose 172 mg/dL (70-105); Osmolality,Calculated 299 (280-300); Potassium 3.9 mEq/L (3.5-5.1); Sodium 140 mEq/L (136-145); eGFR For African Americans > 60 (> 60); eGFR For Non-African Americans > 60 (> 60)
[2020-11-21] MEDS: MethylPREDNISolone 40 MG/ML VIAL IVP SCH ×2 (06:07→17:09)
[2020-11-21] MEDS: Isosorbide MONOnitrate (24 HR) 30 MG TAB.ER.24H PO SCH (08:16)
[2020-11-21] MEDS: Metoprolol XL (24 HR) Succ 25 MG TAB.ER.24H PO SCH ×2 (08:16→20:56)
[2020-11-21] MEDS: Gabapentin 300 MG CAPSULE PO SCH ×3 (08:17→20:55)
[2020-11-21] MEDS: Furosemide 40 MG/4 ML VIAL IVP SCH ×2 (08:17→20:56)
[2020-11-21] MEDS: Insulin LISPRO 300 UNITS/3 ML VIAL SUBQ SCH ×3 (08:31→17:09)
[2020-11-21] MEDS ORDERED: Artificial Tears SOLN 15 ML BOTTLE BOTH EYES PRN (09:28)
[2020-11-21] MEDS ORDERED: Oxymetazoline Nasal SPRAY BOTTLE NS PRN (09:28)
[2020-11-21] MEDS: Budesonide/Formoterol 80/4.5 1 PUFF INH IH SCH ×2 (11:12→22:34)
[2020-11-21] MEDS: Tiotropium 10 INH DOSE IH SCH (11:18)
[2020-11-22] MEDS: Ipratropium/Albuterol Neb 3 ML IH SCH ×2 (04:09→10:22)
[2020-11-22] MEDS: MethylPREDNISolone 40 MG/ML VIAL IVP SCH (06:19)
[2020-11-22] MEDS: Insulin LISPRO 300 UNITS/3 ML VIAL SUBQ SCH ×2 (07:44→12:02)
[2020-11-22] MEDS: Tiotropium 10 INH DOSE IH SCH (07:54)
[2020-11-22] MEDS: Aspirin 81 MG TAB.CHEW PO SCH (08:42)
[2020-11-22] MEDS: Isosorbide MONOnitrate (24 HR) 30 MG TAB.ER.24H PO SCH (08:42)
[2020-11-22] MEDS: Metoprolol XL (24 HR) Succ 25 MG TAB.ER.24H PO SCH (08:42)
[2020-11-22] MEDS: Gabapentin 300 MG CAPSULE PO SCH (08:42)
[2020-11-22] MEDS: Furosemide 40 MG/4 ML VIAL IVP SCH (08:43)
[2020-11-22] MEDS: Budesonide/Formoterol 80/4.5 1 PUFF INH IH SCH (10:23)
[2020-11-22 10:37] VITALS: BP 117/73
[2020-11-22] MEDS: Acetaminophen 325 MG TABLET PO PRN (12:01)
== END 2020-11-22 13:26 | disposition hospice, home (50) | DRG 291 ==
LOC: EMEROOARM 15:57 → 2NENU 15:57 → SUATTDRO 19:38 → 2NENU 20:21
PROVIDERS: ADMIT Family Medicine; ATTEND Student in an Organized Health Care Education/Training Program